=== PATIENT | female | born 1950 | race Caucasian/White ===

== ENCOUNTER → 2017-01-13 | Outpatient (CLI) | payer MEDICARE ==
[~2017-01-13] MED LIST: ALBU0.08 NEB; ALEN1TAB48 PO; AMLO5TAB2 PO; ASPI-110 PO; ASPI81 PO; ATOR1TAB18 PO; CALC500C2 CHEW; CETI-1 PO; DOCU1CAP25 PO; DOCU2.5C PO; GLUC500C5 PO; HYDR-3516 PO; LISI40TA PO; MULTTAB25 PO; TAB-TAB PO; TOPR25TA2 PO; ZOCO80TA PO; [UNRECOGNIZED DRUG - OTHER]
--- NOTE | 2017-01-13 15:45 | RADRPT ---
EXAM DATE/TIME: 01/13/2017 00:00 [facility] COMPARISON: No previous studies available for comparison. OUTSIDE STUDY REVIEWED: INDICATIONS : CT GUIDED BIOPSY R UPPER LOBE FINDINGS: Images demonstrate a 5 mm nodule right upper lobe which is too small for biopsy. This does demonstrate increased FDG activity and is suspicious for malignancy. Considering there is an approxi mately 8 weeks since the PET scan repeat CT scan is recommended to evaluate for increased size. RECOMMENDATION: Lesion is too small for biopsy as visualized. Recommend repeat noncontrast CT of the chest Leonel Juarez MD on January 13, 2017 at 15:07 Board Certified Radiologist. This report was verified electronically.
== END ==
LOC: EDSTATUS 14:21 → HRAD 14:22
PROVIDERS: ATTEND Thoracic Surgery (Cardiothoracic Vascular Surgery)
DX: C34.92 Malignant neoplasm of unspecified part of left bronchus or lung (principal)
CPT/HCPCS: 76140

== ENCOUNTER 2017-01-21 11:34 | Inpatient (IN) | payer MEDICARE ==
[~2017-01-21] VITALS: Ht 160 cm; Wt 48.3 kg
[2017-01-21] MEDS ORDERED: ATOR1TAB18 PO (12:07)
[2017-01-21] MEDS ORDERED: MULTTAB25 PO (12:07)
[2017-01-21] MEDS ORDERED: ASPI-110 PO (12:07)
[2017-01-21] MEDS ORDERED: LISI40TA PO (12:07)
[2017-01-21] MEDS ORDERED: ALEN1TAB48 PO (12:07)
[2017-01-24] VITALS (7 sets, daily range): BP systolic 101–154; BP diastolic 54–94; PULSE 64–92; RESP 16–20; TEMP 97.4–98.3; O2SAT 96–100
[2017-01-24] MEDS ORDERED: METOPROLOL TARTRATE 25 MG TAB PO PRN (06:15)
[2017-01-24] MEDS ORDERED: LACTATED RINGER'S 1000 ML IV PRN (06:15)
[2017-01-24] MEDS ORDERED: CHLORHEXIDINE GLUCONATE 2 % 1 PACK (2 CLOTHS) TOPICAL PRN (06:15)
[2017-01-24] MEDS ORDERED: INSULIN HUMAN REGULAR 1,000 UNITS/10 ML VIAL SQ PRN (06:15)
[2017-01-24] MEDS ORDERED: SODIUM CHLORID 0.9% 500 ML IV PRN (06:15)
[2017-01-24] MEDS ORDERED: POVIDONE IODINE 5% (ANTISEPSIS KIT) 4 APPLICATIONS EACH NARE PRN (06:15)
[2017-01-24] MEDS ORDERED: AMLO5TAB2 PO (06:23)
[2017-01-24] MEDS ORDERED: BUPIVACAINE LIPOSO PF 1.3% INJ 20 ML, DEXAMETHASONE INJ 4 MG in SODIUM CHLORIDE 0.9% IN... P-ARTICULR SCH (08:00)
[2017-01-24] MEDS ORDERED: ACETAMINOPHEN/HYDROcodone 325 MG/5 MG TAB PO PRN (09:15)
[2017-01-24] MEDS ORDERED: ONDANSETRON HCL 4 MG/2 ML VIAL IV PUSH PRN (09:15)
[2017-01-24] MEDS ORDERED: ACETAMINOPHEN 325 MG TAB PO PRN (09:15)
[2017-01-24] MEDS ORDERED: RESP: ALBUTEROL 2.5 MG/3 ML NEB (PRN) NEB (09:15)
[2017-01-24] MEDS ORDERED: Post-op Orders (for Pharmacy) MISC OTHER ONE (09:15)
[2017-01-24] MEDS ORDERED: MAGNESIUM HYDROXIDE SUSP 30 ML CUP PO PRN (09:15)
[2017-01-24] MEDS: ACETAMINOPHEN 1000 MG/100 ML VIAL IV SCH ×3 (10:00→21:51)
[2017-01-24] MEDS: KETOROLAC TROMETHAMINE 30 MG/ML (IVP) VIAL IV PUSH SCH ×3 (10:00→21:51)
--- NOTE | 2017-01-24 10:16 | RADRPT ---
EXAM DATE/TIME: 01/24/2017 09:38 [facility] COMPARISON: No previous studies available for comparison. INDICATIONS : Post thoracotomy. MEDICAL HISTORY : Hypercholesterolemia. Hypertension SURGICAL HISTORY : Cardiac cath, Stent. ENCOUNTER: Initial ACUITY: 1 day PAIN SCORE: Non-responsive. LOCATION: Bilateral chest FINDINGS: There is hyperinflation. Heart size upper limits normal. Aortic calcification is seen. Right-sided ch est tube is present with tip overlying the right lung apex. A pneumothorax is not clearly visualized. The osseous structures are intact. There is increased density in the right paratracheal region which can represent adenopathy or mass. CONCLUSION: No evidence of pneumothorax with chest tube in place. Gerry Ghotra MD on January 24, 2017 at 10:14 Board Certified Radiologist. This report was verified electronically.
[2017-01-24] MEDS: ACETAMINOPHEN/HYDROcodone 325 MG/5 MG TAB PO PRN (13:08)
--- NOTE | 2017-01-24 13:58 | PD.OP ---
cc: Julian Calzada MD; Catrachita Howard MD Operative Report Date of Surgery: Jan 24, 2017 Preoperative Diagnosis: Postoperative Diagnosis: Procedure: 1. Right Video-Assisted Thoracoscopic Surgery (VATS). 2. Resection of Right Upper Lobe Mass 3. Intercostal Nerve Block . Surgeon: Catrachita Howard Manager Oncology(s): Perla Ferro Operation and Findings: PREOPERATIVE DIAGNOSES 1. Right Upper Lobe Lung Mass. 2. Left Lower Lobe Lung Cancer 3. COPD POSTOPERATIVE DIAGNOSES Same SURGICAL PROCEDURE 1. Right Video-Assisted Thoracoscopic Surgery (VATS). 2. Resection of Right Upper Lobe Mass 3. Intercostal Nerve Block SURGEON Catrachita Howard MD COAT EXAMINER Eleni ferro, [facility] ANESTHESIA General double lumen endotracheal. MACHINE SPLITTER BERE Ruiz MD PREPARATION ChloraPrep. COUNTS Needle, sponge, and instrument counts are correct. DRAINS One [address] COMPLICATIONS None. INDICATIONS The patient is a 66 yo lady with left lower lobe lung cancer as well as a right upper lobe mass. The patient is being brought to the operating room for resection of the right upper lobe mass. DESCRIPTION OF PROCEDURE The patient was brought to the operating room and placed supine on the OR table. Following the induction of adequate general double lumen endotracheal anesthesia and placement of appropriate monitoring devices, the patient was placed in the left lateral decubitus position. The right chest and surrounding areas were then prepped and draped in a standard sterile fashion. A 5 mm camera port was introduced into the 7th intercostal space in mid axillary line, and the camera introduced. A second 5 mm port was then placed anteriorly under direct visual guidance and one posteriorly. The apical segment of the right upper lobe was grasped and resected using a LANE stapler. The specimen was bagged and removed through the posterior port. The specimen was opened and the nodule identified, cultured and sent for definitive histological analysis. The middle port was removed and a [address] was placed into the pleural space and exited through the chest wall. This was maintained in place with a nonabsorbable suture. All of the entry sites were injected with Exparel. Following confirmation of the catheter in the proper place, the incisions were closed with [address] was attached to a suction device, and sterile dressing applied. Intercostal nerve block was performed using Ropivacaine/ Morphine solution at the level of the incisions as well as 2 rib spaces above and below. The patient tolerated the procedure well and was extubated and transferred to the recovery room in stable condition. Catrachita Howard MD Jan 24, 2017 13:58
[2017-01-24] MEDS ORDERED: PROPOFOL 200 MG/20 ML AMP IV ONE (15:02)
[2017-01-24] MEDS ORDERED: NEOSTIGMINE 3 MG/3 ML SYR IV ONE (15:03)
[2017-01-24] MEDS ORDERED: ONDANSETRON HCL 4 MG/2 ML VIAL IV PUSH ONE (15:03)
[2017-01-24] MEDS: RESP: ALBUTEROL 2.5 MG/3 ML NEB (SCH) NEB ×2 (15:33→22:17)
[2017-01-24] MEDS: DOCUSATE CALCIUM 240 MG CAP PO SCH (21:51)
[2017-01-24] MEDS: PANTOPRAZOLE SOD 40 MG DELAYED RELEASE TAB PO SCH (21:51)
[2017-01-25] VITALS (23 sets, daily range): BP systolic 101–149; BP diastolic 60–84; PULSE 76–92; RESP 16–20; TEMP 97.8–98.2; O2SAT 96–100
[2017-01-25] MEDS: ACETAMINOPHEN 1000 MG/100 ML VIAL IV SCH (04:00)
[2017-01-25] MEDS: KETOROLAC TROMETHAMINE 30 MG/ML (IVP) VIAL IV PUSH SCH (04:05)
[2017-01-25] MEDS: RESP: ALBUTEROL 2.5 MG/3 ML NEB (SCH) NEB ×4 (04:53→19:37)
--- NOTE | 2017-01-25 05:11 | RADRPT ---
EXAM DATE/TIME: 01/25/2017 04:28 [facility] COMPARISON: CHEST SINGLE AP, January 24, 2017, 9:38. INDICATIONS : Status post thoracotomy. MEDICAL HISTORY : Hypercholesterolemia. Hypertension SURGICAL HISTORY : Cardiac cath, Stent. ENCOUNTER: Subsequent ACUITY: 2 days PAIN SCORE: Non-responsive. LOCATION: Bilateral chest FINDINGS: A single view of the chest demonstrates right-sided chest tube unchanged. No definite pneumothorax. P ostsurgical changes in the right upper lobe with residual scarring. The cardiomediastinal contours ar e unremarkable. Osseous structures are intact. CONCLUSION: 1. Postsurgical changes right upper lobe. 2. Right-sided chest tube without pneumothorax. Aman Cruz MD on January 25, 2017 at 5:05 Board Certified Radiologist. This report was verified electronically.
--- NOTE | 2017-01-25 10:11 | PD.CAR.PN ---
CVT Progress Note CVT: POD #: 1 Subjective/Hospital Course: 66/ female recent diagnosis of left lingular cancer, underwent workup demonstrating poorly differentiated adenocarcinoma of left lung,, she also had a second smaller right upper lobe nodule that was suspicious for an underlying malignancy. PMH: adenocarcinoma of lung, anxiety , chronic bronchitis, COPD, HTN, HLP surgery: 01/24 Right Video-Assisted Thoracoscopic Surgery (VATS), Resection of Right Upper Lobe Mass 01/25 doing well , on room air chest tube to suction / drained 32cc/ 12 hrs CXR noted no PTX pain controlled Objective: GENERAL: SKIN: Warm and dry.postero lateral incision intact and well approximated / HEAD: Normocephalic. EYES: No scleral icterus. No injection or drainage. NECK: Supple, trachea midline. No JVD or lymphadenopathy. CARDIOVASCULAR: Regular rate and rhythm without murmurs, gallops, or rubs. RESPIRATORY: Breath sounds equal bilaterally. No accessory muscle use. chest tube to wall suction/ no air leak GASTROINTESTINAL: Abdomen soft, non-tender, nondistended. MUSCULOSKELETAL: No cyanosis, or edema. BACK: Nontender without obvious deformity. No CVA tenderness. Vital Signs Date Time Temp Pulse Resp B/P Pulse Ox O2 Delivery O2 Flow Rate FiO2 01/25/17 08:00 96 Room Air 01/25/17 07:00 84 01/25/17 07:00 98.0 84 16 140/81 96 01/25/17 04:55 96 Nasal Cannula 2.00 01/25/17 04:00 96 Nasal Cannula 2.00 01/25/17 03:00 97.9 81 18 101/60 96 01/25/17 03:00 81 01/25/17 00:00 97 Nasal Cannula 2.00 01/24/17 23:30 89 Room Air 01/24/17 23:00 98.3 82 18 109/54 97 01/24/17 23:00 90 Room Air 01/24/17 23:00 82 01/24/17 22:30 91 Room Air 01/24/17 22:25 18 01/24/17 22:18 96 21 01/24/17 20:00 97 Room Air 01/24/17 19:00 97.9 72 18 101/54 97 01/24/17 19:00 72 01/24/17 16:00 99 Room Air 01/24/17 15:00 98.2 79 16 104/63 99 01/24/17 15:00 79 01/24/17 12:00 99 Room Air 01/24/17 11:00 97.4 77 16 119/71 99 01/24/17 11:00 64 01/24/17 10:30 64 01/24/17 10:30 97.4 70 16 119/70 100 01/24/17 10:30 100 Nasal Cannula 2.00 01/24/17 10:15 69 16 109/62 99 Nasal Cannula 2 Telemetry: NSR (1) Lung cancer (2) right vats Plan: await path report keep chest tube to wall suction pulm toileting nebs ezpap acapella ambulate CM to eval for HHC at discharge (3) COPD (chronic obstructive pulmonary disease) Plan: nebs (4) Hyperlipemia Plan: resume statin (5) Hypertension Plan: resume home meds Amelia Cedeno Jan 25, 2017 10:11
--- NOTE | 2017-01-25 10:18 | HHI.FF ---
Face to Face Verification Diagnosis: (1) Lung cancer (2) right vats (3) Hypertension (4) Hyperlipemia (5) COPD (chronic obstructive pulmonary disease) Home Health Nursing Order: Signs/symptoms of disease process Wound care and dressing changes Instructions: Incentive spirometry Q1 hr x 10, while awake, also use acapella device hourly whole awake chest wall Precautions: NO pushing or pulling, ( pt must use chest pillow to support chest with all activities and with coughing Daily incision care: ok to shower daily, no tub bath. Wash all incisions with liquid dial soap, clean wash cloth to each site, rinse and pat dry. Observe for any signs of infection, such as drainage which is dark yellow, parker, green or foul smelling. Immediately report to the surgeon any drainage from the chest incision, or legs, and for any abnormal drainage from the chest tube sites. Notify surgeon if any temp >101.5 degrees F. When specialty dressing removed/ or if you do not have one, continue to shower daily as above, then rinse and pat incision dry and paint with betadine daily x 5 days. Allow steri strips to fall off if you have any. Avoid lotions, creams, salves, oils, etc. for the first month F/U appointment: as per [place] instructions: PCP in 2 weeks, CV surgeon 2 weeks, Head Transfer Clerk 3-4 weeks For any questions regarding incisions/ dressing / meds / post op care or above Symptoms, I have seen patient Edna Fink on 01/25/17. My clinical findings support the need for the requested home health care services because: Patient has SOB Deconditioned w/ increased weakness I certify that my clinical findings support that this patient is homebound because: Post-op weakness Amelia Cedeno Jan 25, 2017 10:18
[2017-01-25] MEDS: amLODIPine BESYLATE 5 MG TAB PO SCH (11:43)
[2017-01-25] MEDS: ASPIRIN EC 81 MG TABEC PO SCH (11:43)
[2017-01-25] MEDS: ACETAMINOPHEN/HYDROcodone 325 MG/5 MG TAB PO PRN ×2 (11:43→20:47)
[2017-01-25] MEDS: LISINOPRIL 20 MG TAB PO SCH (20:42)
[2017-01-25] MEDS: PANTOPRAZOLE SOD 40 MG DELAYED RELEASE TAB PO SCH (20:42)
[2017-01-25] MEDS: DOCUSATE CALCIUM 240 MG CAP PO SCH (20:42)
[2017-01-25] MEDS ORDERED: ATORVASTATIN 80 MG TAB PO SCH (21:00)
[2017-01-26] VITALS (15 sets, daily range): BP systolic 100–139; BP diastolic 67–75; PULSE 61–96; RESP 18–20; TEMP 97.4–98.5; O2SAT 97–99
[2017-01-26] MEDS: ACETAMINOPHEN/HYDROcodone 325 MG/5 MG TAB PO PRN ×2 (05:18→10:04)
--- NOTE | 2017-01-26 05:53 | RADRPT ---
EXAM DATE/TIME: 01/26/2017 04:05 [facility] COMPARISON: CHEST SINGLE AP, January 25, 2017, 4:28. INDICATIONS : Shortness of breath. MEDICAL HISTORY : Hypercholesterolemia. Hypertension SURGICAL HISTORY : Cardiac cath, Stent. ENCOUNTER: Subsequent ACUITY: 2 days PAIN SCORE: Non-responsive. LOCATION: Bilateral chest FINDINGS: A single view of the chest demonstrates clear lungs. Postsurgical changes right lung. Right-sided aric st tube noted without pneumothorax. The cardiomediastinal contours are unremarkable. Mediastinum is midline. Osseous structures are intact. CONCLUSION: Right-sided chest tube without pneumothorax. Aman Cruz MD on January 26, 2017 at 5:50 Board Certified Radiologist. This report was verified electronically.
[2017-01-26] MEDS: RESP: ALBUTEROL 2.5 MG/3 ML NEB (SCH) NEB ×2 (06:16→10:32)
[2017-01-26] MEDS: ASPIRIN EC 81 MG TABEC PO SCH (09:53)
[2017-01-26] MEDS: amLODIPine BESYLATE 5 MG TAB PO SCH (09:53)
[2017-01-26] MEDS: LISINOPRIL 20 MG TAB PO SCH (09:53)
[2017-01-26] MEDS ORDERED: SOD PHOSPHATE/SOD BIPHOSPHATE (ADULT) ENEMA 133ML PR ONE (10:15)
[2017-01-26] MEDS ORDERED: BISACODYL 10 MG SUPP RECTAL ONE (10:15)
[2017-01-26] MEDS ORDERED: MAGNESIUM HYDROXIDE SUSP 30 ML CUP PO ONE (10:15)
--- NOTE | 2017-01-26 10:15 | PD.CAR.PN ---
CVT Progress Note Subjective/Hospital Course: 66/ female recent diagnosis of left lingular cancer, underwent workup demonstrating poorly differentiated adenocarcinoma of left lung,, she also had a second smaller right upper lobe nodule that was suspicious for an underlying malignancy. PMH: adenocarcinoma of lung, anxiety , chronic bronchitis, COPD, HTN, HLP surgery: 01/24 Right Video-Assisted Thoracoscopic Surgery (VATS), Resection of Right Upper Lobe Mass 01/25 doing well , on room air chest tube to suction / drained 32cc/ 12 hrs CXR noted no PTX pain controlled 01/26 chest tube removed without difficulty f/u cxr pending eval for dc later today additional GI motility meds given Objective: GENERAL: SKIN: Warm and dry.incisions intact right postero lateral chest wall / chest tube removed HEAD: Normocephalic. EYES: No scleral icterus. No injection or drainage. NECK: Supple, trachea midline. No JVD or lymphadenopathy. CARDIOVASCULAR: Regular rate and rhythm without murmurs, gallops, or rubs. RESPIRATORY: Breath sounds equal bilaterally. No accessory muscle use. GASTROINTESTINAL: Abdomen soft, non-tender, nondistended. MUSCULOSKELETAL: No cyanosis, or edema. BACK: Nontender without obvious deformity. No CVA tenderness. Vital Signs Date Time Temp Pulse Resp B/P Pulse Ox O2 Delivery O2 Flow Rate FiO2 01/26/17 09:02 89 01/26/17 08:54 77 01/26/17 08:54 97 Room Air 01/26/17 07:30 98.1 84 18 100/67 97 01/26/17 07:30 82 01/26/17 06:06 69 01/26/17 05:00 75 01/26/17 04:00 97 Room Air 01/26/17 04:00 72 01/26/17 04:00 98.5 71 20 139/75 99 01/26/17 03:10 74 01/26/17 02:00 74 01/26/17 01:00 74 01/26/17 00:00 74 01/26/17 00:00 98.2 79 20 123/68 99 01/26/17 00:00 95 Nasal Cannula 1.00 01/25/17 23:00 80 01/25/17 22:00 90 01/25/17 21:00 92 01/25/17 20:00 98.2 90 20 149/76 98 01/25/17 20:00 90 01/25/17 20:00 98 Room Air 01/25/17 19:41 98 21 01/25/17 19:00 76 01/25/17 18:00 89 01/25/17 17:00 82 01/25/17 16:30 98.1 85 20 118/65 98 01/25/17 16:30 98 Room Air 01/25/17 16:00 82 01/25/17 15:27 96 21 01/25/17 15:00 78 01/25/17 14:00 79 01/25/17 13:00 82 01/25/17 12:00 97 Room Air 01/25/17 12:00 90 01/25/17 11:52 97.8 87 18 141/84 97 01/25/17 11:00 89 01/25/17 10:26 97 21 (1) Lung cancer (2) right vats Plan: path report :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
[2017-01-26] MEDS ORDERED: DOCU1CAP25 PO (10:33)
--- NOTE | 2017-01-26 12:14 | RADRPT ---
EXAM DATE/TIME: 01/26/2017 11:37 [facility] COMPARISON: CHEST SINGLE AP, January 26, 2017, 4:05. INDICATIONS : Pneumothorax. Chest tube removal. MEDICAL HISTORY : Hypercholesterolemia. Hypertension SURGICAL HISTORY : Cardiac cath, Stent. ENCOUNTER: Subsequent ACUITY: 2 days PAIN SCORE: 0/10 LOCATION: Bilateral chest FINDINGS: Hyperinflation is noted bilaterally. The right-sided chest tube has been removed. Questionable minima l tiny right apical pneumothorax. Right upper lobe bandlike opacity again noted. Heart size normal. CONCLUSION: Chest tube removal with questionable minimal residual apical pneumothorax. Gerry Ghotra MD on January 26, 2017 at 12:11 Board Certified Radiologist. This report was verified electronically.
--- NOTE | 2017-01-26 13:25 | HHI.DS ---
Discharge Summary Admission Date Jan 24, 2017 at 05:40 Discharge Date: Jan 26, 2017 Admitting Diagnosis right lung mass (1) Lung cancer Diagnosis: Principal (2) COPD (chronic obstructive pulmonary disease) Diagnosis: Principal (3) Hyperlipemia Diagnosis: Principal (4) Hypertension Diagnosis: Principal (5) right vats Diagnosis: Secondary Procedures 01/24 1. Right Video-Assisted Thoracoscopic Surgery (VATS). 2. Resection of Right Upper Lobe Mass 3. Intercostal Nerve Block Brief History 66/ female recent diagnosis of left lingular cancer, underwent workup demonstrating poorly differentiated adenocarcinoma of left lung,, she also had a second smaller right upper lobe nodule that was suspicious for an underlying malignancy. also underwent PET scan PMH: adenocarcinoma of lung, anxiety , chronic bronchitis, COPD, HTN, HLP surgery: 01/24 Right Video-Assisted Thoracoscopic Surgery (VATS), Resection of Right Upper Lobe Mass Imaging Last Impressions Chest X-Ray 01/26/17 1130 Signed Impressions: Service Date/Time: Thursday, January 26, 2017 11:37 - CONCLUSION: Chest tube removal with questionable minimal residual apical pneumothorax. Gerry Ghotra MD PE at Discharge GENERAL: SKIN: Warm and dry.incision intact to right lateral chest wall/ chest tube dc without difficulty HEAD: Normocephalic. EYES: No scleral icterus. No injection or drainage. NECK: Supple, trachea midline. No JVD or lymphadenopathy. CARDIOVASCULAR: Regular rate and rhythm without murmurs, gallops, or rubs. RESPIRATORY: Breath sounds equal bilaterally. No accessory muscle use. GASTROINTESTINAL: Abdomen soft, non-tender, nondistended. MUSCULOSKELETAL: No cyanosis, or edema. BACK: Nontender without obvious deformity. No CVA tenderness. Hospital Course 01/25 doing well , on room air chest tube to suction / drained 32cc/ 12 hrs CXR noted no PTX pain controlled 01/26 chest tube removed without difficulty f/u cxr pending eval for dc later today additional GI motility meds given Pt Condition on Discharge: Good Discharge Disposition: Disch w/ Home Health Serv Discharge Instructions DIET: Follow Instructions for: As Tolerated, No Restrictions Activities you can perform: Shower Only-No Bath Activities to avoid: Lifting/Bending, Strenuous Activity, Driving Additional Activity Instructio: no lifting > 8 lbs or gallon of milk Follow up Referrals: Pulmonology Surgical New Medications: Docusate Calcium (Stool Softener) 240 Mg Cap 240 MG PO HS Constipation #30 CAP Continued Medications: Alendronate (Alendronate) 70 Mg Tab 70 MG PO Q7D Osteporosis Treatment #4 Ref 0 TAB Amlodipine (Amlodipine) 5 Mg Tab 5 MG PO DAILY Blood Pressure Management #30 Ref [address] (Aspirin 81) 81 Mg Tabdr 81 MG PO DAILY Ref 0 TAB Atorvastatin (Atorvastatin) 80 Mg Tab 80 MG PO HS Cholesterol Management #30 Ref 0 TAB Lisinopril (Lisinopril) 40 Mg Tab 40 MG PO BID Blood Pressure Management #30 Ref 0 TAB Multiple Vitamins W/ Minerals (Multi For Her 50+) 1 Tab Tab 1 TAB PO DAILY Nutritional Supplement Amelia Cedeno Jan 26, 2017 13:25
== END 2017-01-26 13:57 | disposition home health service (06) | DRG 165 ==
LOC: HSDI 01-24 05:40 → HCVR 01-24 10:29 → HCIN 01-25 08:50 → HCIS 01-25 10:51 → HCIN 01-25 10:57
PROVIDERS: ADMIT Thoracic Surgery (Cardiothoracic Vascular Surgery); ATTEND Thoracic Surgery (Cardiothoracic Vascular Surgery)
PROC: 3E0T3CZ (ICD-10-PCS; 2017-01-24)
PROC: 0BTC4ZZ Resection of Right Upper Lung Lobe, Percutaneous Endoscopic Approach (ICD-10-PCS; principal; 2017-01-24 07:35)
DX: C34.32 Malignant neoplasm of lower lobe, left bronchus or lung (principal); J44.9 Chronic obstructive pulmonary disease, unspecified; I10 Essential (primary) hypertension; E78.5 Hyperlipidemia, unspecified; R94.31 Abnormal electrocardiogram [ECG] [EKG]
CPT/HCPCS: 36415; 71010; 80048; 81001; 85027; 85610; 85730; 86850; 86900; 86901; 87015; 87070; 87102; 87116; 87205; 87206; 88305; 88307; 93005; 94150; 94640; 94664; C9290; J0131; J0690; J1100; J1885; J2405; J2710; J7120; J7613

== ENCOUNTER → 2017-01-21 | Outpatient (CLI) | payer MEDICARE ==
[2017-01-21 13:01] LABS: MEAN CORPUSCULAR HEMOGLOBIN 29.5 PG (27.0-34.0); MEAN CORPUSCULAR HGB CONC 32.8 % (32.0-36.0); PLATELET COUNT 269 TH/MM3 (150-450); RED BLOOD COUNT 4.55 MIL/MM3 (4.00-5.30); RED CELL DISTRIBUTION WIDTH 13.4 % (11.6-17.2); REVIEW FLAG FINAL; WHITE BLOOD COUNT 12.3 TH/MM3 (4.0-11.0)
[2017-01-21 13:09] LABS: APTT (PATIENT) 24.9 SEC (24.3-30.1); INTERNATIONAL NORMALIZED RATIO 0.9 RATIO; PROTHROMBIN TIME - PATIENT 9.9 SEC (9.8-11.6)
[2017-01-21 13:20] LABS: BLOOD, URINE SMALL (NEG); COMMENT (UR) CULT NOT INDICATED; CULTURE IF INDICATED CULT NOT INDICATED; GLUCOSE,URINE NEG (NEG); KETONE, URINE NEG (NEG); NITRITE,URINE NEG (NEG); URINE COLOR YELLOW (YELLW/STRAW)
[2017-01-21 13:23] LABS: BICARBONATE 29.3 MEQ/L (21.0-32.0); POTASSIUM 4.4 MEQ/L (3.5-5.1)
--- NOTE | 2017-01-22 15:27 | EKG ---
Date Performed: 01/21/2017 Time Performed: 12:27:55 PTAGE: 66 years EKG: Sinus rhythm LOW QRS VOLTAGE IN EXTREMITY LEADS Compared to previous tracing, previously noted anterolateral ST c hanges have all improved. Clinical correlation is strongly recommended BORDERLINE ECG NO PREVIOUS TRACING DOCTOR: Vicenta Cardona Interpretating Date/Time 01/22/2017 15:25:37
== END ==
LOC: CPRE 11:30
PROVIDERS: ATTEND Thoracic Surgery (Cardiothoracic Vascular Surgery)
DX: Z01.812 Encounter for preprocedural laboratory examination (principal); C34.92 Malignant neoplasm of unspecified part of left bronchus or lung; R94.31 Abnormal electrocardiogram [ECG] [EKG]
CPT/HCPCS: 36415; 80048; 81001; 85027; 85610; 85730; 93005

== ENCOUNTER 2017-02-21 07:30 | Inpatient (IN) | payer MEDICARE ==
[~2017-02-21] VITALS: Ht 160 cm; Wt 48.5 kg
[~2017-02-21 07:30] MED LIST changes: -ALBU0.08 NEB; -ASPI-110 PO; -ASPI81 PO; -CALC500C2 CHEW; -CETI-1 PO; -DOCU2.5C PO; -GLUC500C5 PO; -HYDR-3516 PO; -TAB-TAB PO; -TOPR25TA2 PO; -ZOCO80TA PO; -[UNRECOGNIZED DRUG - OTHER]
[2017-03-29] MEDS ORDERED: CETI-1 PO (14:25)
[2017-03-29] MEDS ORDERED: ALBU0.08 NEB (14:25)
[2017-04-01] VITALS (17 sets, daily range): BP systolic 107–125; BP diastolic 60–77; PULSE 77–104; RESP 16; TEMP 97.6–98; O2SAT 95–99
[2017-04-01] MEDS ORDERED: POVIDONE IODINE 5% (ANTISEPSIS KIT) 4 APPLICATIONS EACH NARE PRN (06:15)
[2017-04-01] MEDS ORDERED: INSULIN HUMAN REGULAR 1,000 UNITS/10 ML VIAL SQ PRN (06:15)
[2017-04-01] MEDS ORDERED: SODIUM CHLORID 0.9% 500 ML IV PRN (06:15)
[2017-04-01] MEDS ORDERED: METOPROLOL TARTRATE 25 MG TAB PO PRN (06:15)
[2017-04-01] MEDS ORDERED: CHLORHEXIDINE GLUCONATE 2 % 1 PACK (2 CLOTHS) TOPICAL PRN (06:15)
[2017-04-01] MEDS ORDERED: LACTATED RINGER'S 1000 ML IV PRN (06:15)
[2017-04-01] MEDS ORDERED: CALC500C2 CHEW (06:25)
[2017-04-01] MEDS ORDERED: GLUC500C5 PO (06:25)
[2017-04-01] MEDS ORDERED: ACETAMINOPHEN 1000 MG/100 ML VIAL IV ONE (07:21)
[2017-04-01] MEDS ORDERED: DEXAMETHASONE SOD PHOS 4 MG/ML VIAL ONE (07:22)
[2017-04-01] MEDS ORDERED: fentaNYL CITRATE 250 MCG/5 ML AMP ONE (07:22)
[2017-04-01] MEDS ORDERED: MIDAZOLAM HCL 2 MG/2 ML VIAL ONE (07:22)
[2017-04-01] MEDS ORDERED: ceFAZolin 2 GM PREMIX 50 ML ONE (07:24)
[2017-04-01] MEDS ORDERED: BUPIVACAINE LIPOSO PF 1.3% INJ 20 ML, DEXAMETHASONE INJ 4 MG, MORPHINE INJ 10 MG in SOD... P-ARTICULR SCH (07:30)
[2017-04-01] MEDS ORDERED: SODIUM CHLORIDE 0.9% FLUSH 5 ML FLUSH IV FLUSH PRN (12:00)
[2017-04-01] MEDS ORDERED: PROPOFOL 200 MG/20 ML AMP IV ONE (12:00)
[2017-04-01] MEDS ORDERED: NEOSTIGMINE 3 MG/3 ML SYR IV ONE (12:00)
[2017-04-01] MEDS ORDERED: RESP: ALBUTEROL 2.5 MG/3 ML NEB (PRN) NEB (12:00)
[2017-04-01] MEDS ORDERED: ACETAMINOPHEN 1000 MG/100 ML VIAL IV SCH (12:00)
[2017-04-01] MEDS ORDERED: ePHEDrine/NS 25 MG/5 ML SYR IV ONE (12:00)
[2017-04-01] MEDS ORDERED: LACTATED RINGER'S 1000 ML INJ 1,000 ML IV ONE (12:00)
[2017-04-01] MEDS ORDERED: PHENYLEPH/NS 1000 MCG/10 ML SYR IV ONE (12:00)
[2017-04-01] MEDS: KETOROLAC TROMETHAMINE 30 MG/ML (IVP) VIAL IV PUSH SCH ×3 (12:00→22:30)
[2017-04-01] MEDS ORDERED: ONDANSETRON HCL 4 MG/2 ML VIAL IV PUSH ONE (12:00)
[2017-04-01] MEDS ORDERED: NORMOSOL R INJ 1,000 ML IV ONE (12:00)
[2017-04-01] MEDS ORDERED: Post-op Orders (for Pharmacy) MISC OTHER ONE (12:00)
[2017-04-01] MEDS ORDERED: ACETAMINOPHEN/HYDROcodone 325 MG/5 MG TAB PO PRN (12:00)
[2017-04-01] MEDS ORDERED: ONDANSETRON HCL 4 MG/2 ML VIAL IV PUSH PRN (12:00)
[2017-04-01] MEDS ORDERED: ACETAMINOPHEN 325 MG TAB PO PRN (12:00)
[2017-04-01] MEDS ORDERED: DO NOT ADM ANY ANTICOAGULANT DRUGS PRN (12:19)
[2017-04-01] MEDS ORDERED: *morphine SULFATE 8 MG/ML PERIprocedure ONLY ONE (12:39)
--- NOTE | 2017-04-01 12:56 | RADRPT ---
EXAM DATE/TIME: 04/01/2017 12:34 [facility] COMPARISON: CHEST SINGLE AP, January 26, 2017, 11:37. INDICATIONS : Post op thoracotomy. MEDICAL HISTORY : Hypercholesterolemia. Hypertension SURGICAL HISTORY : None. Cardiac cath, Stent. ENCOUNTER: Initial ACUITY: 1 day PAIN SCORE: 0/10 LOCATION: Bilateral chest FINDINGS: A left chest tube is noted in good position. No definite pneumothorax is noted on the left. The hea rt is stable. The pulmonary vascularity pattern is normal. The lungs are clear. CONCLUSION: 1. Left chest tube is in good position without evidence of pneumothorax. Tomas Street MD on April 01, 2017 at 12:49 Board Certified Radiologist. This report was verified electronically.
[2017-04-01] MEDS ORDERED: DOPamine INJ PREMIX 500 ML ONE (13:50)
--- NOTE | 2017-04-01 14:10 | HHI.FF ---
Face to Face Verification Diagnosis: (1) Lung cancer (2) COPD (chronic obstructive pulmonary disease) (3) Hyperlipemia (4) Hypertension (5) right vats Home Health Nursing Order: Wound care and dressing changes Nursing assessment with vital signs Instructions: Incentive spirometry Q1 hr x 10, while awake, also use acapella device hourly whole awake chest wall chest wall Precautions: NO pushing or pulling, ( pt must use chest pillow to support chest with all activities and with coughing Daily incision care: ok to shower daily, no tub bath. Wash all incisions with liquid dial soap, clean wash cloth to each site, rinse and pat dry. Observe for any signs of infection, such as drainage which is dark yellow, parker, green or foul smelling. Immediately report to the surgeon any drainage from the chest incision, or legs, and for any abnormal drainage from the chest tube sites. Notify surgeon if any temp >101.5 degrees F. When specialty dressing removed/ or if you do not have one, continue to shower daily as above, then rinse and pat incision dry and paint with betadine daily x 5 days. Allow steri strips to fall off if you have any. Avoid lotions, creams, salves, oils, etc. for the first month F/U appointment: as per [place] instructions: PCP in 2 weeks, CV surgeon 2 weeks, manager bilingual 3-4 weeks, oncologist 4 weeks For any questions regarding incisions/ dressing / meds / post op care or above Symptoms, Tuesday 8am-5pm Heart & Vascular Surgery Office ( Dr. Howard & Dr. Blevins), After Hours / Nights (5pm -8am) Weekends and Holidays Please call [facility] Cardiac Intermediate Care Unit (CIC) Charge Nurse I have seen patient Edna Fink on 04/01/17. My clinical findings support the need for the requested home health care services because: Deconditioned w/ increased weakness I certify that my clinical findings support that this patient is homebound because: Post-op weakness Amelia Cedeno Apr 01, 2017 14:10
[2017-04-01] MEDS ORDERED: DOPamine 800 MG/D5W PREMIX 500 ML IV SCH (14:15)
--- NOTE | 2017-04-01 14:21 | PD.OP ---
cc: Julian Calzada MD; Catrachita Howard MD; Rayray Correa MD Operative Report Date of Surgery: Apr 01, 2017 Preoperative Diagnosis: Postoperative Diagnosis: Procedure: 1. Robotic Left Upper Lobectomy 2. Mediastinal Lymph Node Dissection. 3. Intercostal Nerve Block . Surgeon: Catrachita Howard Carbon Cleaner(s): Perla Luke Operation and Findings: PREOPERATIVE DIAGNOSIS 1. Left Upper Lobe Adenocarcinoma 2. Right Upper Lobe Squamous Cell Carcinoma 3. Head & Neck Cancer 4. COPD POSTOPERATIVE DIAGNOSIS same PROCEDURES 1. Robotic Left Upper Lobectomy 2. Mediastinal Lymph Node Dissection. 3. Intercostal Nerve Block SURGEON Catrachita Howard MD HAIRSPRING VIBRATOR Eleni Luke CSFA ANESTHESIA General endotracheal. MUSHROOM SPAWN MAKER BERE Suarez MD OPERATIVE TIME Please see record. COMPLICATIONS None. INDICATION FOR PROCEDURE The patient is a 67yo lady with multiple synchronous primary malignancies now with left lung cancer. DESCRIPTION OF PROCEDURE The patient was brought to the operating suite and placed in supine position. Following satisfactory induction of general endotracheal anesthesia, the patient was placed in the right lateral decubitus position. The left chest was then prepped and draped in the usual sterile fashion. Under direct vision, camera was introduced in the 8th ICS and insufflation was begun into the chest . Instrument arm 1and 2 were placed. Lesion was identified. The inferior pulmonary ligament was divided. The pulmonary arterial supply to the upper lobe was identified, dissected free and divided as was the pulmonary venous supply. The bronchus was then dissected free, clamped and the remaining lung was insufflated without any difficulty. Lymph node dissections of level 5, 6 and 7 were explored but adenopathy was identified. Specimen was bagged and removed from the chest. A 28-Maori chest tube was placed. Intercostal nerve block was performed at the level of the incision and 3 rib spaces above and below using Exparel with Decadron solution. Evicel was sprayed along the staple line and no air-leaks were identified. Wounds were closed with 2-0, 3-0, and 4-0 Monocryl. The patient tolerated the procedure well and postoperatively went to recovery in stable condition. Catrachita Howard MD Apr 01, 2017 14:21
[2017-04-01] MEDS ORDERED: ceFAZolin 1 GM PREMIX 50 ML IV SCH (16:00)
[2017-04-01] MEDS: ceFAZolin 1,000 MG/NS 100 ML IV SCH ×2 (16:58)
[2017-04-01] MEDS: RESP: ALBUTEROL 2.5 MG/3 ML NEB (SCH) NEB ×2 (17:01→20:21)
[2017-04-01] MEDS: DOCUSATE CALCIUM 240 MG CAP PO SCH (21:00)
[2017-04-01] MEDS: SODIUM CHLORIDE 0.9% FLUSH 5 ML FLUSH IV FLUSH SCH (21:00)
[2017-04-01] MEDS: ATORVASTATIN 80 MG TAB PO SCH (22:27)
[2017-04-01] MEDS: PANTOPRAZOLE SOD 40 MG DELAYED RELEASE TAB PO SCH (22:27)
[2017-04-02] VITALS (29 sets, daily range): BP systolic 96–143; BP diastolic 63–81; PULSE 72–108; RESP 16; TEMP 97.6–99.1; O2SAT 93–97
[2017-04-02] MEDS: RESP: ALBUTEROL 2.5 MG/3 ML NEB (SCH) NEB ×3 (03:24→21:15)
[2017-04-02] MEDS: ACETAMINOPHEN/HYDROcodone 325 MG/5 MG TAB PO PRN ×4 (04:20→23:00)
[2017-04-02] MEDS: ceFAZolin 1,000 MG/NS 100 ML IV SCH ×4 (04:21→09:04)
[2017-04-02] MEDS ORDERED: CALCIUM CARBONATE 500 MG CHEWABLE TAB CHEW PRN (04:30)
[2017-04-02 05:57] LABS: AUTOMATED NEUTROPHIL # 11.8 TH/MM3 (1.8-7.7); BASOPHIL # 0.1 TH/MM3 (0-0.2); BASOPHIL % 0.5 % (0.0-2.0); EOSINOPHIL % 0.1 % (0.0-4.0); HEMATOCRIT 30.1 % (35.0-46.0); HEMO FLAGS DIFF FINAL; LYMPH % 13.3 % (9.0-44.0); MEAN CELL VOLUME 89.4 FL (80.0-100.0); MEAN CORPUSCULAR HEMOGLOBIN 29.4 PG (27.0-34.0); MEAN CORPUSCULAR HGB CONC 32.9 % (32.0-36.0); MONO % 6.5 % (0.0-8.0); NEUT % 79.6 % (16.0-70.0); PLATELET COUNT 266 TH/MM3 (150-450); RED BLOOD COUNT 3.37 MIL/MM3 (4.00-5.30); RED CELL DISTRIBUTION WIDTH 13.6 % (11.6-17.2); WHITE BLOOD COUNT 14.8 TH/MM3 (4.0-11.0)
[2017-04-02] MEDS: KETOROLAC TROMETHAMINE 30 MG/ML (IVP) VIAL IV PUSH SCH ×2 (06:00→22:49)
[2017-04-02 06:20] LABS: BICARBONATE 27.5 MEQ/L (21.0-32.0); POTASSIUM 3.9 MEQ/L (3.5-5.1)
[2017-04-02] MEDS: SODIUM CHLORIDE 0.9% FLUSH 5 ML FLUSH IV FLUSH SCH ×2 (09:00→21:00)
[2017-04-02] MEDS ORDERED: NON-FORMULARY DRUG (Glucosamine 500 MG) PO SCH (09:00)
[2017-04-02] MEDS: CETIRIZINE HCL 10 MG TAB PO SCH (09:04)
--- NOTE | 2017-04-02 09:39 | PD.CAR.PN ---
CVT Progress Note Subjective/Hospital Course: 67 yo pleasant lady with synchronous lung malignancies 04/01 PROCEDURES 1. Robotic Left Upper Lobectomy 2. Mediastinal Lymph Node Dissection. 3. Intercostal Nerve Block 04/02 Doing well Air-leak with valsalva Maintain CT to water seal Ambulate Objective: Vital Signs Date Time Temp Pulse Resp B/P Pulse Ox O2 Delivery O2 Flow Rate FiO2 04/02/17 09:18 96 04/02/17 08:30 95 04/02/17 08:30 98.3 95 16 122/75 95 04/02/17 05:00 74 04/02/17 04:08 98.2 91 16 117/70 94 04/02/17 04:00 72 04/02/17 03:00 87 04/02/17 02:00 86 04/02/17 01:07 97.6 92 16 119/63 97 04/02/17 01:00 86 04/02/17 00:00 86 04/01/17 23:00 85 04/01/17 22:00 104 04/01/17 21:53 97.6 93 16 117/66 96 04/01/17 21:00 88 04/01/17 20:21 99 04/01/17 20:00 82 04/01/17 19:00 97 04/01/17 19:00 16 04/01/17 18:00 98 04/01/17 17:30 98 16 125/76 96 04/01/17 17:15 93 16 111/65 96 04/01/17 17:04 96 04/01/17 17:00 98 04/01/17 17:00 100 16 110/72 96 04/01/17 17:00 100 04/01/17 16:45 101 16 116/60 95 04/01/17 16:30 101 16 122/77 96 04/01/17 16:15 98.0 100 16 110/72 96 04/01/17 16:00 100 04/01/17 15:30 95 21 105/58 98 Nasal Cannula 2 04/01/17 15:15 100 22 110/66 98 Nasal Cannula 2 04/01/17 15:00 88 17 104/58 98 Nasal Cannula 2 04/01/17 14:45 89 14 102/57 98 Nasal Cannula 2 04/01/17 14:30 93 21 100/55 98 Nasal Cannula 2 04/01/17 14:15 93 21 137/61 98 Nasal Cannula 2 04/01/17 14:00 90 22 82/54 98 Nasal Cannula 2 04/01/17 13:45 75 18 83/54 98 Nasal Cannula 2 04/01/17 13:30 97.5 84 18 86/54 98 Nasal Cannula 2 04/01/17 13:15 83 18 89/51 97 Nasal Cannula 2 04/01/17 13:00 74 13 92/51 96 Nasal Cannula 2 04/01/17 12:45 76 15 98/53 99 Nasal Cannula 2 04/01/17 12:30 79 20 105/52 98 Nasal Cannula 2 04/01/17 12:17 96.8 81 25 107/53 96 Nasal Cannula 2 Labs: Laboratory Tests Test 04/02/17 05:07 White Blood Count 14.8 TH/MM3 (4.0-11.0) Red Blood Count 3.37 MIL/MM3 (4.00-5.30) Hemoglobin 9.9 GM/DL (11.6-15.3) Hematocrit 30.1 % (35.0-46.0) Mean Corpuscular Volume 89.4 FL (80.0-100.0) Mean Corpuscular Hemoglobin 29.4 PG (27.0-34.0) Mean Corpuscular Hemoglobin 32.9 % Concent (32.0-36.0) Red Cell Distribution Width 13.6 % (11.6-17.2) Platelet Count 266 TH/MM3 (150-450) Mean Platelet Volume 7.0 FL (7.0-11.0) Neutrophils (%) (Auto) 79.6 % (16.0-70.0) Lymphocytes (%) (Auto) 13.3 % (9.0-44.0) Monocytes (%) (Auto) 6.5 % (0.0-8.0) Eosinophils (%) (Auto) 0.1 % (0.0-4.0) Basophils (%) (Auto) 0.5 % (0.0-2.0) Neutrophils # (Auto) 11.8 TH/MM3 (1.8-7.7) Lymphocytes # (Auto) 2.0 TH/MM3 (1.0-4.8) Monocytes # (Auto) 1.0 TH/MM3 (0-0.9) Eosinophils # (Auto) 0.0 TH/MM3 (0-0.4) Basophils # (Auto) 0.1 TH/MM3 (0-0.2) CBC Comment DIFF FINAL Differential Comment Sodium Level 140 MEQ/L (136-145) Potassium Level 3.9 MEQ/L (3.5-5.1) Chloride Level 107 MEQ/L (98-107) Carbon Dioxide Level 27.5 MEQ/L (21.0-32.0) Anion Gap 6 MEQ/L (5-15) Blood Urea Nitrogen 10 MG/DL (7-18) Creatinine 0.54 MG/DL (0.50-1.00) Estimat Glomerular Filtration 113 ML/MIN Rate (>89) Random Glucose 117 MG/DL (74-106) Calcium Level 8.2 MG/DL (8.5-10.1) Result Diagram: 04/02/17 0507 04/02/17 0507 Catrachita Howard MD Apr 02, 2017 09:39
[2017-04-02] MEDS: MAGNESIUM HYDROXIDE SUSP 30 ML CUP PO PRN (18:12)
[2017-04-02] MEDS: PANTOPRAZOLE SOD 40 MG DELAYED RELEASE TAB PO SCH (21:02)
[2017-04-02] MEDS: ATORVASTATIN 80 MG TAB PO SCH (21:02)
[2017-04-02] MEDS: DOCUSATE CALCIUM 240 MG CAP PO SCH (21:02)
[2017-04-03] VITALS (25 sets, daily range): BP systolic 111–144; BP diastolic 62–90; PULSE 72–101; RESP 16–20; TEMP 97.8–98.5; O2SAT 93–97
[2017-04-03] MEDS: RESP: ALBUTEROL 2.5 MG/3 ML NEB (SCH) NEB ×4 (03:30→20:33)
[2017-04-03] MEDS: ACETAMINOPHEN/HYDROcodone 325 MG/5 MG TAB PO PRN ×4 (04:06→20:26)
[2017-04-03] MEDS: KETOROLAC TROMETHAMINE 30 MG/ML (IVP) VIAL IV PUSH SCH ×3 (04:38→16:22)
--- NOTE | 2017-04-03 06:42 | RADRPT ---
EXAM DATE/TIME: 04/03/2017 05:58 [facility] COMPARISON: CHEST SINGLE AP, April 01, 2017, 12:34. INDICATIONS : Shortness of breath, possible pulmonary disease. MEDICAL HISTORY : Hypercholesterolemia. Hypertension SURGICAL HISTORY : Lobectomy. ENCOUNTER: Subsequent ACUITY: 3 days PAIN SCORE: 6/10 LOCATION: Left chest FINDINGS: Single AP view of the chest. Left-sided chest tube remains in place. No evidence of pneumothorax. The lungs are clear. Cardiomediastinal silhouette within normal limits. No evidence of pleural effusion or pneumothorax. CONCLUSION: Left-sided chest tube in place. No evidence of pneumothorax. Paulino Lang MD on April 03, 2017 at 6:37 Board Certified Radiologist. This report was verified electronically.
[2017-04-03] MEDS: SODIUM CHLORIDE 0.9% FLUSH 5 ML FLUSH IV FLUSH SCH ×2 (09:00→20:28)
[2017-04-03] MEDS: CETIRIZINE HCL 10 MG TAB PO SCH (09:09)
[2017-04-03] MEDS: MAGNESIUM HYDROXIDE SUSP 30 ML CUP PO PRN (09:16)
--- NOTE | 2017-04-03 09:40 | PD.CAR.PN ---
CVT Progress Note Subjective/Hospital Course: 67 yo pleasant lady with synchronous lung malignancies 04/01 PROCEDURES 1. Robotic Left Upper Lobectomy 2. Mediastinal Lymph Node Dissection. 3. Intercostal Nerve Block 04/02 Doing well Air-leak with valsalva Maintain CT to water seal Ambulate 04/03 Doing great No discernible air-leak Keep CT re-evaluate in am for removal Pathology pending Objective: Vital Signs Date Time Temp Pulse Resp B/P Pulse Ox O2 Delivery O2 Flow Rate FiO2 04/03/17 08:00 98.3 85 20 129/90 97 04/03/17 06:00 73 04/03/17 05:00 86 04/03/17 04:59 98.0 98 16 111/63 93 04/03/17 04:00 92 04/03/17 03:00 90 04/03/17 02:00 80 04/03/17 01:00 86 04/03/17 00:00 90 04/02/17 23:20 98.6 101 16 143/81 93 04/02/17 23:00 101 04/02/17 22:00 108 04/02/17 21:15 97 21 04/02/17 21:00 94 04/02/17 20:45 99.1 101 16 139/70 93 04/02/17 20:00 104 04/02/17 19:00 92 04/02/17 18:00 88 04/02/17 17:00 88 04/02/17 16:00 86 04/02/17 16:00 16 04/02/17 15:00 98.3 83 16 122/74 97 04/02/17 14:00 79 04/02/17 13:00 85 04/02/17 12:00 87 04/02/17 11:00 98.4 89 16 96/65 97 04/02/17 10:00 82 Result Diagram: 04/02/17 0507 04/02/17 0507 Catrachita Howard MD Apr 03, 2017 09:40
[2017-04-03] MEDS: ATORVASTATIN 80 MG TAB PO SCH (20:24)
[2017-04-03] MEDS: DOCUSATE CALCIUM 240 MG CAP PO SCH (20:26)
[2017-04-03] MEDS: PANTOPRAZOLE SOD 40 MG DELAYED RELEASE TAB PO SCH (20:28)
[2017-04-04] VITALS (27 sets, daily range): BP systolic 123–165; BP diastolic 68–89; PULSE 74–99; RESP 16–18; TEMP 97.2–98.8; O2SAT 95–97
[2017-04-04] MEDS: ACETAMINOPHEN/HYDROcodone 325 MG/5 MG TAB PO PRN ×7 (00:06→22:50)
[2017-04-04] MEDS: RESP: ALBUTEROL 2.5 MG/3 ML NEB (SCH) NEB ×4 (03:26→21:26)
[2017-04-04] MEDS: CETIRIZINE HCL 10 MG TAB PO SCH (08:40)
[2017-04-04] MEDS: SODIUM CHLORIDE 0.9% FLUSH 5 ML FLUSH IV FLUSH SCH ×2 (08:41→21:00)
--- NOTE | 2017-04-04 13:38 | PD.CAR.PN ---
CVT Progress Note Subjective/Hospital Course: 67 yo pleasant lady with synchronous lung malignancies 04/01 PROCEDURES 1. Robotic Left Upper Lobectomy 2. Mediastinal Lymph Node Dissection. 3. Intercostal Nerve Block 04/02 Doing well Air-leak with valsalva Maintain CT to water seal Ambulate 04/03 Doing great No discernible air-leak Keep CT re-evaluate in am for removal Pathology pending 04/04 small intermittent air leak minimal drainage continue pain control pulm toileting Objective: Vital Signs Date Time Temp Pulse Resp B/P Pulse Ox O2 Delivery O2 Flow Rate FiO2 04/04/17 12:18 16 04/04/17 12:00 98.7 84 16 123/68 95 04/04/17 12:00 89 04/04/17 11:00 92 04/04/17 10:00 82 04/04/17 09:00 88 04/04/17 08:00 98.8 89 16 144/88 96 04/04/17 08:00 74 04/04/17 07:00 88 04/04/17 06:00 98 04/04/17 05:12 98.4 90 16 140/82 95 04/04/17 05:00 84 04/04/17 04:00 76 04/04/17 03:00 74 04/04/17 02:00 76 04/04/17 01:00 78 04/04/17 00:11 98.2 84 16 128/69 95 04/04/17 00:00 84 04/03/17 23:00 79 04/03/17 22:00 82 04/03/17 21:00 94 04/03/17 20:00 84 04/03/17 20:00 98.5 89 16 125/72 96 04/03/17 19:00 80 04/03/17 18:00 78 04/03/17 17:29 20 04/03/17 17:00 82 04/03/17 16:00 81 04/03/17 15:00 97.8 87 20 144/81 96 04/03/17 15:00 79 04/03/17 14:00 101 Result Diagram: 04/02/17 0507 04/02/17 0507 Telemetry: NSR (1) Hyperlipemia (2) Hypertension Plan: home meds (3) right vats (4) Lung cancer Plan: await path (5) COPD (chronic obstructive pulmonary disease) Plan: kyra moss Jacqueline R. ARNP Apr 04, 2017 13:38
[2017-04-04] MEDS: ATORVASTATIN 80 MG TAB PO SCH (19:46)
[2017-04-04] MEDS: PANTOPRAZOLE SOD 40 MG DELAYED RELEASE TAB PO SCH (19:46)
[2017-04-04] MEDS: DOCUSATE CALCIUM 240 MG CAP PO SCH (19:46)
[2017-04-04] MEDS: KETOROLAC TROMETHAMINE 30 MG/ML (IVP) VIAL IV PUSH PRN (21:31)
[2017-04-04] MEDS: LISINOPRIL 20 MG TAB PO SCH (21:32)
[2017-04-05] VITALS (21 sets, daily range): BP systolic 124–152; BP diastolic 71–85; PULSE 72–100; RESP 14–20; TEMP 97.2–99.5; O2SAT 93–97
[2017-04-05] MEDS: RESP: ALBUTEROL 2.5 MG/3 ML NEB (SCH) NEB ×3 (03:44→15:47)
[2017-04-05] MEDS: KETOROLAC TROMETHAMINE 30 MG/ML (IVP) VIAL IV PUSH PRN (04:36)
--- NOTE | 2017-04-05 04:50 | RADRPT ---
EXAM DATE/TIME: 04/05/2017 03:31 [facility] COMPARISON: CHEST SINGLE AP, April 03, 2017, 5:58. INDICATIONS : Shortness of breath. MEDICAL HISTORY : Hypercholesterolemia. Hypertension. SURGICAL HISTORY : Lobectomy. ENCOUNTER: Subsequent ACUITY: 1 week PAIN SCORE: 0/10 LOCATION: Bilateral chest FINDINGS: No infiltrate, effusion or pneumothorax demonstrated. Left chest tube remains in place. Mild left vol ume loss again noted, unchanged. Heart size stable, within normal limits. Tortuous and atherosclerotic aorta again noted. CONCLUSION: No significant change. Glenroy Levy MD on April 05, 2017 at 4:47 Board Certified Radiologist. This report was verified electronically.
[2017-04-05] MEDS: ACETAMINOPHEN/HYDROcodone 325 MG/5 MG TAB PO PRN ×4 (07:08→23:01)
[2017-04-05] MEDS: SODIUM CHLORIDE 0.9% FLUSH 5 ML FLUSH IV FLUSH SCH ×2 (09:00→21:00)
[2017-04-05] MEDS: amLODIPine BESYLATE 5 MG TAB PO SCH (09:23)
[2017-04-05] MEDS: LISINOPRIL 20 MG TAB PO SCH ×2 (09:24→20:58)
[2017-04-05] MEDS: CETIRIZINE HCL 10 MG TAB PO SCH (09:24)
--- NOTE | 2017-04-05 13:12 | RADRPT ---
EXAM DATE/TIME: 04/05/2017 12:02 [facility] COMPARISON: CHEST SINGLE AP, April 05, 2017, 3:31. INDICATIONS : Pneumothorax. MEDICAL HISTORY : Chronic obstructive pulmonary disease. Osteoporosis. Hypertension. Heart valve disease. Left parotid gland mass. Left cervical lymphadenopathy. Squamous cell carcinoma. Left upper lobe lung nodule, saturnino ocarcinoma. Coronary artery disease. SURGICAL HISTORY : Coronary artery stent. Hysterectomy. Cataract removal. Ovarian cyst removal. Biopsy of left upper lob e nodule. VATs procedure with wedge resection. Colonoscopy. ENCOUNTER: Subsequent ACUITY: 3 days PAIN SCORE: 3/10 LOCATION: Bilateral chest FINDINGS: A single view of the chest demonstrates postsurgical changes right upper lung. Left-sided chest tube in position, unchanged. Lungs are clear. No consolidation or pneumothorax. Mild volume loss on the le ft. Osseous structures are intact. CONCLUSION: 1. Post surgical changes right upper lung. 2. Left-sided chest tube without pneumothorax. Aman Cruz MD on April 05, 2017 at 13:06 Board Certified Radiologist. This report was verified electronically.
[2017-04-05] MEDS ORDERED: HYDR-3516 PO (15:46)
[2017-04-05] MEDS ORDERED: DOCU2.5C PO (15:46)
--- NOTE | 2017-04-05 16:02 | PD.CAR.PN ---
CVT Progress Note Subjective/Hospital Course: 67 yo pleasant lady with synchronous lung malignancies 04/01 PROCEDURES 1. Robotic Left Upper Lobectomy 2. Mediastinal Lymph Node Dissection. 3. Intercostal Nerve Block 04/02 Doing well Air-leak with valsalva Maintain CT to water seal Ambulate 04/03 Doing great No discernible air-leak Keep CT re-evaluate in am for removal Pathology pending 04/04 small intermittent air leak minimal drainage continue pain control pulm toileting 04/05 left chest tube removed without difficulty on room air , recheck cxr in am eval for dc in am Objective: GENERAL: SKIN: Warm and dry.incisions intact left chest area HEAD: Normocephalic. EYES: No scleral icterus. No injection or drainage. NECK: Supple, trachea midline. No JVD or lymphadenopathy. CARDIOVASCULAR: Regular rate and rhythm without murmurs, gallops, or rubs. RESPIRATORY: Breath sounds equal bilaterally. No accessory muscle use. GASTROINTESTINAL: Abdomen soft, non-tender, nondistended. MUSCULOSKELETAL: No cyanosis, or edema. BACK: Nontender without obvious deformity. No CVA tenderness. Vital Signs Date Time Temp Pulse Resp B/P Pulse Ox O2 Delivery O2 Flow Rate FiO2 04/05/17 15:33 18 04/05/17 15:00 95 04/05/17 15:00 98.4 83 20 132/73 94 04/05/17 14:00 82 04/05/17 13:00 88 04/05/17 12:00 100 04/05/17 11:00 97.8 92 20 152/76 97 04/05/17 11:00 86 04/05/17 10:00 84 04/05/17 09:39 95 21 04/05/17 09:00 90 04/05/17 08:00 87 04/05/17 08:00 97.9 87 20 124/71 97 04/05/17 07:00 95 04/05/17 04:46 98.0 94 14 132/72 93 04/05/17 04:00 93 04/05/17 03:00 72 04/05/17 02:00 82 04/05/17 01:00 76 04/05/17 00:00 97.2 92 16 126/74 93 04/05/17 00:00 90 04/04/17 23:00 99 04/04/17 22:00 82 04/04/17 21:00 84 04/04/17 20:00 97.2 94 18 165/89 97 04/04/17 20:00 92 04/04/17 19:00 90 04/04/17 18:00 94 04/04/17 17:00 80 04/04/17 16:00 85 04/04/17 16:00 98.3 90 16 150/82 95 Result Diagram: 04/02/17 0507 04/02/17 0507 Cardiovascular: NSR (1) Hyperlipemia (2) Hypertension Plan: home meds (3) right vats (4) Lung cancer Plan: await path adenocarcinoma pT1a pNO no bronchial margin involved no lymph node involved (5) COPD (chronic obstructive pulmonary disease) Plan: kyra moss Jacqueline R. ARNP Apr 05, 2017 16:00
[2017-04-05] MEDS: ATORVASTATIN 80 MG TAB PO SCH (20:57)
[2017-04-05] MEDS: PANTOPRAZOLE SOD 40 MG DELAYED RELEASE TAB PO SCH (20:58)
[2017-04-05] MEDS: DOCUSATE CALCIUM 240 MG CAP PO SCH (20:58)
[2017-04-06] VITALS (7 sets, daily range): BP systolic 120–134; BP diastolic 69–77; PULSE 83–114; RESP 18–20; TEMP 98.1–98.7; O2SAT 95–96
--- NOTE | 2017-04-06 05:48 | RADRPT ---
EXAM DATE/TIME: 04/06/2017 04:49 [facility] COMPARISON: No previous studies available for comparison. INDICATIONS : Short of breath. MEDICAL HISTORY : Chronic obstructive pulmonary disease. Osteoporosis. Hypertension. SURGICAL HISTORY : Lobectomy. Coronary artery stent. ENCOUNTER: Subsequent ACUITY: 1 week PAIN SCORE: 0/10 LOCATION: Bilateral chest FINDINGS: Left chest tube has been removed. No pneumothorax seen. Mild patchy infiltrate and volume loss again seen on the left. Streaky infiltrate of the right upper lobe unchanged. Heart size stable, normal. CONCLUSION: Left chest tube removed. No pneumothorax seen. Otherwise no significant change, as above. Glenroy Levy MD on April 06, 2017 at 5:46 Board Certified Radiologist. This report was verified electronically.
[2017-04-06] MEDS: SODIUM CHLORIDE 0.9% FLUSH 5 ML FLUSH IV FLUSH SCH (09:00)
[2017-04-06] MEDS: ACETAMINOPHEN/HYDROcodone 325 MG/5 MG TAB PO PRN (10:15)
[2017-04-06] MEDS: CETIRIZINE HCL 10 MG TAB PO SCH (10:16)
[2017-04-06] MEDS: amLODIPine BESYLATE 5 MG TAB PO SCH (10:16)
[2017-04-06] MEDS: LISINOPRIL 20 MG TAB PO SCH (10:16)
--- NOTE | 2017-04-06 10:30 | HHI.DS ---
Discharge Summary Admission Date Apr 01, 2017 at 05:38 Discharge Date: Apr 06, 2017 Admitting Diagnosis lung mass (1) COPD (chronic obstructive pulmonary disease) Diagnosis: Principal (2) Lung cancer Diagnosis: Principal (3) Hypertension Diagnosis: Principal (4) right vats Diagnosis: Secondary Procedures 1. Robotic Left Upper Lobectomy 04/01 2. Mediastinal Lymph Node Dissection. 3. Intercostal Nerve Block Brief History 67 female hx of recent diagnosis of left lingular cancer, underwent workup demonstrating poorly differentiated adenocarcinoma of left lung,, she also had a second smaller right upper lobe nodule that was suspicious for an underlying malignancy. also underwent PET scan/ Right vats with resection of RUL lung cancer 410/17 Left Upper Lobe Adenocarcinoma . Right Upper Lobe Squamous Cell Carcinoma Head & Neck Cancer PMH: adenocarcinoma of lung, anxiety , chronic bronchitis, COPD, HTN, HLP CBC/BMP: 04/02/17 0507 04/02/17 0507 Significant Findings path final diagnosis benign antracotic lymph node pT1a pNO histologic type adenocarcinoma Imaging Last Impressions Chest X-Ray 04/06/17 0600 Signed Impressions: Service Date/Time: Tuesday, April 06, 2017 04:49 - CONCLUSION: Left chest tube removed. No pneumothorax seen. Otherwise no significant change, as above. Glenroy Levy MD PE at Discharge GENERAL: SKIN: Warm and dry. incisions intact to left posterior chest wall HEAD: Normocephalic. EYES: No scleral icterus. No injection or drainage. NECK: Supple, trachea midline. No JVD or lymphadenopathy. CARDIOVASCULAR: Regular rate and rhythm without murmurs, gallops, or rubs. RESPIRATORY: Breath sounds equal bilaterally. No accessory muscle use. GASTROINTESTINAL: Abdomen soft, non-tender, nondistended. MUSCULOSKELETAL: No cyanosis, or edema. BACK: Nontender without obvious deformity. No CVA tenderness. Hospital Course 04/01 PROCEDURES 1. Robotic Left Upper Lobectomy 2. Mediastinal Lymph Node Dissection. 3. Intercostal Nerve Block 04/02 Doing well Air-leak with valsalva Maintain CT to water seal Ambulate 04/03 Doing great No discernible air-leak Keep CT re-evaluate in am for removal Pathology pending 04/04 small intermittent air leak minimal drainage continue pain control pulm toileting 04/05 left chest tube removed without difficulty on room air , recheck cxr in am eval for dc in am 04/06 cxr no evidence of PTX, stable for dc F/U with oncology and pulmonology discharge instructions given to pt Pt Condition on Discharge: Good Discharge Disposition: Disch w/ Home Health Serv Discharge Instructions DIET: Follow Instructions for: As Tolerated, No Restrictions Activities you can perform: Full Weight Bearing, Shower Only-No Bath Activities to avoid: Driving Additional Activity Instructio: no liftinjg > 8 lbs or gallon of milk Follow up Referrals: Oncology - 4 Weeks with Rayray Correa MD PCP Follow-up Pulmonology with Julian Calzada MD Surgical with Catrachita Howard MD New Medications: Docusate Calcium (Sm Stool Softener) 240 Mg Cap 240 MG PO HS Constipation #30 Ref 0 CAP Hydrocodone-Acetaminophen (Hydrocodone-Acetaminophen) 5-325 mg Tab 1 TAB PO Q4HR PRN PAIN SCALE 3 TO 5 #40 Ref 0 TAB Continued Medications: Albuterol Neb (Albuterol Neb) 2.5 Mg/3 Ml Neb 2.5 MG NEB TID NEB PRN SHORTNESS OF BREATH #60 Ref 0 NEBULE Alendronate (Alendronate) 70 Mg Tab 70 MG PO Q7D Osteporosis Treatment #4 Ref 0 TAB Amlodipine (Amlodipine) 5 Mg Tab 5 MG PO DAILY Blood Pressure Management #30 Ref 0 TAB Atorvastatin (Atorvastatin) 80 Mg Tab 80 MG PO HS Cholesterol Management #30 Ref 0 TAB Calcium Carbonate-Cholecalciferol (Calcium) 1,250-100 Mg-Unit Chew 1 TAB CHEW DAILY TAB Cetirizine HCl (Zyrtec) 10 Mg Tablet 1 TAB PO DAILY Glucosamine (Glucosamine) 500 Mg Cap 500 MG PO DAILY Herbal Supplements Ref 0 CAP Lisinopril (Lisinopril) 40 Mg Tab 40 MG PO BID Blood Pressure Management #30 Ref 0 TAB Multiple Vitamins W/ Minerals (Multi For Her 50+) 1 Tab Tab 1 TAB PO DAILY Nutritional Supplement Amelia Cedeno Apr 06, 2017 10:30
== END 2017-04-06 11:53 | disposition home health service (06) | DRG 165 ==
LOC: HSDI 04-01 05:38 → HCIN 04-01 15:45
PROVIDERS: ADMIT Thoracic Surgery (Cardiothoracic Vascular Surgery); ATTEND Thoracic Surgery (Cardiothoracic Vascular Surgery)
PROC: 07B74ZX Excision of Thorax Lymphatic, Percutaneous Endoscopic Approach, Diagnostic (ICD-10-PCS; 2017-04-01)
PROC: 3E0T3BZ Introduction of Anesthetic Agent into Peripheral Nerves and Plexi, Percutaneous Approach (ICD-10-PCS; 2017-04-01)
PROC: 8E0W4CZ Robotic Assisted Procedure of Trunk Region, Percutaneous Endoscopic Approach (ICD-10-PCS; 2017-04-01)
PROC: 0BTG4ZZ Resection of Left Upper Lung Lobe, Percutaneous Endoscopic Approach (ICD-10-PCS; principal; 2017-04-01 07:28)
DX: C34.12 Malignant neoplasm of upper lobe, left bronchus or lung (principal); J44.9 Chronic obstructive pulmonary disease, unspecified; Z85.118 Personal history of other malignant neoplasm of bronchus and lung; I10 Essential (primary) hypertension; F17.210 Nicotine dependence, cigarettes, uncomplicated; E78.5 Hyperlipidemia, unspecified
CPT/HCPCS: 36415; 36430; 71010; 76937; 80048; 81001; 85025; 85027; 85610; 85730; 86850; 86900; 86901; 86920; 88305; 88307; 88309; 94150; 94640; 94664; C9290; J0131; J0690; J1100; J1265; J1885; J2250; J2270; J2370; J2405; J2710; J3010; J7120; J7613; P9016

== ENCOUNTER 2017-02-22 12:48 | Day surgery (SDC) | payer MEDICARE ==
[~2017-02-22 12:48] MED LIST changes: +ASPI-110 PO
[2017-02-22 13:56] VITALS: BP 137/74; PULSE 88; RESP 14; TEMP 97.7; O2SAT 98
[2017-02-22 14:55] VITALS: BP 138/81; PULSE 78; RESP 16; TEMP 98; O2SAT 99
[2017-02-22 15:10] VITALS: BP 145/85; PULSE 82; RESP 16; O2SAT 99
[2017-02-22] MEDS ORDERED: LIDOCAINE HCL 1% PF 30 ML VIAL ONE (15:49)
--- NOTE | 2017-02-22 16:43 | RADRPT ---
EXAM DATE/TIME: 02/22/2017 13:17 [facility] COMPARISON: No previous studies available for comparison. EXTERNAL COMPARISON: [facility], PET/CT - TUMOR METABOLISM, Oct 29 2016 INDICATIONS : Palpable left neck nodule x 2. MEDICAL HISTORY : Chronic obstructive pulmonary disease. Osteoporosis. Hypertension. Heart valve disease. Left parotid gland mass. Left cervical lymphadenopathy. Squamous cell carcinoma. Left upper lobe lung nodule, saturnino ocarcinoma. Coronary artery disease. SURGICAL HISTORY : Coronary artery stent. Hysterectomy. Cataract removal. Ovarian cyst removal. Biopsy of left upper lo be nodule. VATs procedure with wedge resection. Colonoscopy. ENCOUNTER: Initial ACUITY: 4 - 6 months PAIN SCORE: 0/10 LOCATION: Left neck. ORGAN: Left lymph node SPECIMENS: Three core specimen(s) submitted for pathologic evaluation. DEVICE: 18 gauge Temno needle Post procedure scanning reveals no hematoma or other complication. The possibility does exist that the tissue obtained will be non-diagnostic. If the sample is non-sue gnostic a repeat biopsy or surgical biopsy may need to be performed. TECHNIQUE: 1. Ultrasound guidance for needle biopsy x 2. 2. Needle biopsy x 2. The risks, benefits, and alternatives to ultrasound guided needle biopsy were explained to the patien t in detail including the risk of bleeding and infection. Written and verbal informed consent was ob tained. With the patient on the ultrasound table, images were obtained. Overlying skin was prepped and drape d in the usual sterile fashion and Lidocaine was utilized as a local anesthetic. A needle was advanced into the identified target and the number of specimens as above obtained and fuentes bmitted for pathologic evaluation. The patient tolerated the procedure well and left the ultrasound suite in stable condition. CONCLUSION: Uncomplicated ultrasound guided needle biopsy of the 2 enlarged lymph nodes adjacent to the mandible of the left neck. Aman Cruz MD on February 22, 2017 at 16:40 Board Certified Radiologist. This report was verified electronically.
== END 2017-02-22 15:15 | disposition home or self-care (01) ==
LOC: HRAD 12:48 → HRIP 12:48 → HRAD 15:15
PROVIDERS: ATTEND Internal Medicine Hematology & Oncology
DX: D11.9 Benign neoplasm of major salivary gland, unspecified (principal); R22.1 Localized swelling, mass and lump, neck; I10 Essential (primary) hypertension; I25.10 Atherosclerotic heart disease of native coronary artery without angina pectoris; J44.9 Chronic obstructive pulmonary disease, unspecified; M81.0 Age-related osteoporosis without current pathological fracture; Z95.5 Presence of coronary angioplasty implant and graft; Z85.118 Personal history of other malignant neoplasm of bronchus and lung
CPT/HCPCS: 38505; 76942; 88305

== ENCOUNTER → 2017-03-29 | Outpatient (CLI) | payer MEDICARE ==
[~2017-03-29] MED LIST changes: +ALBU0.08 NEB; +CALC500C2 CHEW; +CETI-1 PO; +DOCU2.5C PO; +GLUC500C5 PO; +HYDR-3516 PO
[2017-03-29 11:53] LABS: HEMATOCRIT 36.3 % (35.0-46.0); MEAN CELL VOLUME 88.1 FL (80.0-100.0); MEAN CORPUSCULAR HEMOGLOBIN 30.3 PG (27.0-34.0); MEAN CORPUSCULAR HGB CONC 34.4 % (32.0-36.0); PLATELET COUNT 335 TH/MM3 (150-450); RED BLOOD COUNT 4.12 MIL/MM3 (4.00-5.30); RED CELL DISTRIBUTION WIDTH 13.9 % (11.6-17.2); REVIEW FLAG FINAL; WHITE BLOOD COUNT 9.7 TH/MM3 (4.0-11.0)
[2017-03-29 12:01] LABS: APTT (PATIENT) 24.5 SEC (24.3-30.1); INTERNATIONAL NORMALIZED RATIO 0.9 RATIO; PROTHROMBIN TIME - PATIENT 10.1 SEC (9.8-11.6)
[2017-03-29 12:04] LABS: BLOOD, URINE SMALL (NEG); COMMENT (UR) CULT NOT INDICATED; CULTURE IF INDICATED CULT NOT INDICATED; GLUCOSE,URINE NEG (NEG); KETONE, URINE NEG (NEG); NITRITE,URINE NEG (NEG); SQUAMOUS EPITHELIAL CELL URINE <1 /hpf (0-5); URINE COLOR YELLOW (YELLW/STRAW)
[2017-03-29 12:21] LABS: BICARBONATE 26.1 MEQ/L (21.0-32.0); POTASSIUM 4.1 MEQ/L (3.5-5.1)
== END ==
LOC: CPRE 10:40
PROVIDERS: ATTEND Thoracic Surgery (Cardiothoracic Vascular Surgery)
DX: Z01.812 Encounter for preprocedural laboratory examination (principal); C34.92 Malignant neoplasm of unspecified part of left bronchus or lung
CPT/HCPCS: 36415; 80048; 81001; 85027; 85610; 85730

== ENCOUNTER 2018-01-10 23:33 | Observation (INO) | payer MEDICARE ==
[~2018-01-10 23:33] MED LIST changes: -ASPI-110 PO; -ATOR1TAB18 PO; +ATOR80TA45 PO; -DOCU1CAP25 PO; +DOCU1CAP26 PO; -DOCU2.5C PO
[2018-01-10 23:43] VITALS: BP 154/69; PULSE 82; RESP 16; TEMP 98.1
[2018-01-10] MEDS ORDERED: SODIUM CHLORIDE 0.9% FLUSH 10 ML FLUSH IV FLUSH PRN (23:45)
[2018-01-10] MEDS ORDERED: ONDANSETRON HCL 4 MG/2 ML VIAL ONE (23:55)
[2018-01-11] VITALS (12 sets, daily range): BP systolic 97–165; BP diastolic 50–81; PULSE 79–105; RESP 16–17; TEMP 98.1–98.2; O2SAT 92–98
[2018-01-11] MEDS ORDERED: ONDANSETRON HCL 4 MG/2 ML VIAL IV PUSH ONE
--- NOTE | 2018-01-11 00:21 | RADRPT ---
EXAM DATE/TIME: 01/11/2018 00:02 [facility] COMPARISON: No previous studies available for comparison. INDICATIONS : Right lower quadrant abdominal pain. MEDICAL HISTORY : Chronic obstructive pulmonary disease. Osteoporosis. Hypertension. Heart valve disease, Left parotid gland mass. Left cervical lymphadenopathy. Squamous cellcarcinoma. Left upper lobe lung nodule, Adeno carcinoma. Coronary artery disease SURGICAL HISTORY : Coronary artery stent. Hysterectomy. Cataract removal. Ovarian cyst removal,Biopsy of left upper lobe nodule. VATs procedure with wedge resection. Colonoscopy ENCOUNTER: Initial ACUITY: 1 day PAIN SCORE: 8/10 LOCATION: Right lower quadrant abdomen FINDINGS: Supine view of the abdomen was performed. Mild gaseous distention of bowel loops in the right abdomen but no obstruction. Round calcification the left of L4 vertebral body.. No abnormal masses, calcifi cations, or organomegaly is seen. The osseous structures are unremarkable. CONCLUSION: Mild gaseous distention of bowel loops in right abdomen without obstruction. Round benign-appearing c alcification to the left of L4 vertebral body. Aman Cruz MD on January 11, 2018 at 0:18 Board Certified Radiologist. This report was verified electronically.
[2018-01-11 00:48] LABS: AMORPHOUS SEDIMENT, URINE RARE; BILIRUBIN, URINE NEG (NEG); BLOOD, URINE SMALL (NEG); GLUCOSE,URINE NEG (NEG); KETONE, URINE 10 mg/dL (NEG); MUCUS URINE FEW /lpf (OCC); NITRITE,URINE NEG (NEG); PH, URINE 6.5 (5.0-8.5); SQUAMOUS EPITHELIAL CELL URINE 3 /hpf (0-5); URINE COLOR YELLOW (YELLW/STRAW); URINE LEUKOCYTE ESTERASE TRACE (NEG)
[2018-01-11 00:51] LABS: ALBUMIN 3.3 GM/DL (3.4-5.0); AST (GOT) 34 U/L (15-37); BASOPHIL # 0.1 TH/MM3 (0-0.2); BASOPHIL % 0.9 % (0.0-2.0); BICARBONATE 24.4 MEQ/L (21.0-32.0); BLOOD UREA NITROGEN 10 MG/DL (7-18); CALCIUM 8.2 MG/DL (8.5-10.1); CHLORIDE 108 MEQ/L (98-107); CREATININE 0.74 MG/DL (0.50-1.00); EOSINOPHIL # 0.2 TH/MM3 (0-0.4); EOSINOPHIL % 1.8 % (0.0-4.0); GLOMERULAR FILTRATION RATE 79 ML/MIN (>89); GLUCOSE,RANDOM 93 MG/DL (74-106); HEMATOCRIT 36.1 % (35.0-46.0); LYMPH % 16.7 % (9.0-44.0); MEAN CELL VOLUME 89.1 FL (80.0-100.0); MEAN CORPUSCULAR HEMOGLOBIN 29.5 PG (27.0-34.0); MEAN CORPUSCULAR HGB CONC 33.2 % (32.0-36.0); MEAN PLATELET VOLUME 7.3 FL (7.0-11.0); MONO % 5.6 % (0.0-8.0); MONOCYTE # 0.7 TH/MM3 (0-0.9); PLATELET COUNT 273 TH/MM3 (150-450); RED BLOOD COUNT 4.05 MIL/MM3 (4.00-5.30); RED CELL DISTRIBUTION WIDTH 14.4 % (11.6-17.2); SODIUM (NA) 140 MEQ/L (136-145); WHITE BLOOD COUNT 12.1 TH/MM3 (4.0-11.0)
[2018-01-11 00:52] LABS: ALT (GPT) 29 U/L (10-53)
[2018-01-11 00:54] LABS: ALKALINE PHOSPHATASE 61 U/L (45-117); TOTAL BILIRUBIN ADULT 0.4 MG/DL (0.2-1.0); TOTAL PROTEIN 6.7 GM/DL (6.4-8.2)
[2018-01-11] MEDS ORDERED: IOHEXOL 350 MG/ML 10 ML VIAL (for RAD DIAG) IVCONTRAST ONE (01:15)
[2018-01-11 01:18] LABS: PROTHROMBIN TIME - PATIENT 10.1 SEC (9.8-11.6)
--- NOTE | 2018-01-11 01:37 | RADRPT ---
EXAM DATE/TIME: 01/11/2018 01:04 [facility] COMPARISON: No previous studies available for comparison. INDICATIONS : Right side abdominal pain and vomiting. IV CONTRAST: 90 cc Omnipaque 350 (iohexol) IV ORAL CONTRAST: No oral contrast ingested. RADIATION DOSE: 6.64 CTDIvol (mGy) MEDICAL HISTORY : Hypertension. CAD. COPD. Squamous cell carcinoma. SURGICAL HISTORY : Hysterectomy. Coronary artery stent. ENCOUNTER: Initial ACUITY: 3 days PAIN SCALE: 10/10 LOCATION: Right abdomen. TECHNIQUE: Volumetric scanning of the abdomen and pelvis was performed. Using automated exposure control and ad justment of the mA and/or kV according to patient size, radiation dose was kept as low as reasonably achievable to obtain optimal diagnostic quality images. DICOM format image data is available electro nically for review and comparison. FINDINGS: LOWER LUNGS: The visualized lower lungs are clear. LIVER: Homogeneous density without lesion. There is no dilation of the biliary tree. No calcified gallston es. SPLEEN: Normal size without lesion. PANCREAS: Within normal limits. KIDNEYS: Normal in size and shape. There is no mass, stone or hydronephrosis. ADRENAL GLANDS: Within normal limits. VASCULAR: There is no aortic aneurysm. BOWEL/MESENTERY: Gaseous distention of the ascending colon. No obstruction. Normal appendix. There is no free intrape ritoneal air. Small amount of pelvic fluid. ABDOMINAL WALL: Within normal limits. RETROPERITONEUM: There is no lymphadenopathy. BLADDER: No wall thickening or mass. REPRODUCTIVE: Within normal limits. INGUINAL: There is no lymphadenopathy or hernia. MUSCULOSKELETAL: Within normal limits for patient age. CONCLUSION: 1. Small amount of pelvic free fluid. 2. Normal appendix. 3. Gaseous distention of the ascending colon without obstruction. Aman Cruz MD on January 11, 2018 at 1:30 Board Certified Radiologist. This report was verified electronically.
[2018-01-11] MEDS ORDERED: HYDROmorphone HCL PF 2 MG/ML VIAL IV PUSH ONE (02:00)
[2018-01-11] MEDS ORDERED: SODIUM CHLOR 0.9% 1000 ML INJ 1,000 ML IV SCH (02:27)
[2018-01-11] MEDS ORDERED: PROCHLORPERAZINE INJ 10 MG/2 ML VIAL IV PUSH PRN (02:30)
[2018-01-11] MEDS ORDERED: SODIUM CHLORIDE 0.9% FLUSH 10 ML FLUSH IV FLUSH PRN ×2 (02:30→10:15)
[2018-01-11] MEDS: SODIUM CHLORIDE 0.9% FLUSH 10 ML FLUSH IV FLUSH SCH ×3 (02:30→20:58)
[2018-01-11] MEDS ORDERED: ONDANSETRON HCL 4 MG/2 ML VIAL IVP PRN (02:30)
[2018-01-11] MEDS ORDERED: NALOXONE HCL 0.4 MG/ML AMP IV PUSH PRN ×2 (02:30→10:15)
[2018-01-11] MEDS ORDERED: RESP: ALBUTEROL 2.5 MG/IPRATROPIUM 0.5 MG NEB (PRN) NEB (02:45)
[2018-01-11] MEDS ORDERED: ENALAPRILAT 1.25 MG/ML VIAL IV PUSH PRN (02:45)
[2018-01-11] MEDS ORDERED: SODIUM CHLOR 0.9% 1000 ML INJ 1,000 ML IV ONE ×2 (03:45)
--- NOTE | 2018-01-11 04:44 | PD ---
HPI . Abdominal pain Chief Complaint: Abdominal Pain Time Seen by Provider: 23:44 Travel History International Travel<30 days: No Contact w/Intl Traveler<30days: No Traveled to known affect area: No History of Present Illness HPI 67-year-old female history of cancer, presents with having right sided abdominal pain nausea and vomiting unable to tolerate p.o. today. Patient denies fever chills sweats, denies any dysuria urgency or frequency. No significant travel history and no significant idiosyncratic food intake. No recent antibiotics, no visitation anyone [facility] setting or hospital [facility] Past Medical History Narrative Medical Past medical history reviewed Autoimmune Disease: No Cancer: Yes (wartgring tumor) Cardiac Catheterization: Yes ( STINT 2001) Cardiovascular Problems: Yes (stent 2001) High Cholesterol: Yes COPD: Yes Diabetes: No Diminished Hearing: No Endocrine: No Genitourinary: No Hepatitis: No Hiatal Hernia: No Hypertension: Yes Immune Disorder: No Musculoskeletal: No Neurologic: No Psychiatric: No Respiratory: Yes (partial lung removal march 2017) Immunizations Current: Yes Thyroid Disease: No Ectopic : Yes Past Surgical History Abdominal Surgery: No AICD: No Body Medical Devices: 1 STENT CARDIAC Ear Surgery: No Endocrine Surgery: No Eye Surgery: No Genitourinary Surgery: No Gynecologic Surgery: Yes (hysterectomy) Hysterectomy: Yes Joint Replacement: No Oral Surgery: Yes (permanent bridge implanted) Pacemaker: No Thoracic Surgery: Yes (R SIDE ) Other Surgery: Yes Social History Alcohol Use: Yes (OCCAS BEER) Tobacco Use: Yes (1/2 PPD) Substance Use: No Allergies-Medications (Allergen,Severity, Reaction): Coded Allergies: No Known Allergies (Verified Allergy, Unknown, 01/11/18) Reported Meds & Prescriptions Reported Meds & Active Scripts Active Sm Stool Softener (Docusate Calcium) 240 Mg Cap 240 Mg PO HS Reported Calcium (Calcium Carbonate-Cholecalciferol) 1,250-100 Mg-Unit Chew 1 Tab CHEW DAILY Glucosamine (Glucosamine Sulfate) 500 Mg Cap 500 Mg PO DAILY Albuterol Neb (Albuterol Sulfate) 2.5 Mg/3 Ml Neb 2.5 Mg NEB TID NEB PRN Zyrtec (Cetirizine HCl) 10 Mg Tablet 1 Tab PO DAILY Amlodipine (Amlodipine Besylate) 5 Mg Tab 5 Mg PO DAILY Multi For Her 50+ (Multiple Vitamins W/ Minerals) 1 Tab Tab 1 Tab PO DAILY Atorvastatin (Atorvastatin Calcium) 80 Mg Tab 80 Mg PO HS Alendronate (Alendronate Sodium) 70 Mg Tab 70 Mg PO Q7D Lisinopril 40 Mg Tab 40 Mg PO BID Narrative Medication Allergies and medications reviewed Review of Systems Except as stated in HPI: all other systems reviewed are Neg General / Constitutional: No: Fever Eyes: No: Visual changes HENT: No: Headaches Cardiovascular: No: Chest Pain or Discomfort Respiratory: No: Shortness of Breath Gastrointestinal: Positive: Nausea, Vomiting, Abdominal Pain, No: Diarrhea Genitourinary: No: Urgency, Frequency, Dysuria, Hematuria, Pelvic Pain, Flank Pain Musculoskeletal: No: Pain Skin: No Rash Neurologic: No: Weakness Psychiatric: No: Depression Endocrine: No: Polydipsia Hematologic/Lymphatic: No: Easy Bruising Physical Exam Narrative GENERAL: Awake and alert, slightly ill-appearing, vital signs afebrile normal and stable SKIN: Warm and dry. Skin color is sallow and slightly pale, no diaphoresis cyanosis HEAD: Atraumatic. Normocephalic. EYES: Pupils equal and round. No scleral icterus. No injection or drainage. ENT: No nasal bleeding or discharge. Mucous membranes pink and moist. NECK: Trachea midline. No JVD. Supple full range of motion CARDIOVASCULAR: Regular rate and rhythm. S1-S2 no murmurs rubs gallops RESPIRATORY: No accessory muscle use. Clear to auscultation. Breath sounds equal bilaterally. GASTROINTESTINAL: Abdomen soft, markedly tender right sided paracolic, nondistended. Hepatic and splenic margins not palpable. MUSCULOSKELETAL: Extremities without clubbing, cyanosis, or edema. No obvious deformities. NEUROLOGICAL: Awake and alert. No obvious focal deficit. PSYCHIATRIC: Appropriate mood and affect; insight and judgment normal. Data Data Last Documented VS Vital Signs Date Time Temp Pulse Resp B/P (MAP) Pulse Ox O2 Delivery O2 Flow Rate FiO2 01/11/18 00:52 98 Room Air 01/10/18 23:43 98.1 82 16 154/69 (97) Orders Orders Complete Blood Count With Diff (01/10/18 23:45) Comprehensive Metabolic Panel (01/10/18 23:45) Lipase (01/10/18 23:45) Lactic Acid (01/10/18 23:45) Prothrombin Time / Inr (Pt) (01/10/18 23:45) Act Partial Throm Time (Ptt) (01/10/18 23:45) Urinalysis - C+S If Indicated (01/10/18 23:45) Iv Access Insert/Monitor (01/10/18 23:45) Ecg Monitoring (01/10/18 23:45) Oximetry (01/10/18 23:45) Sodium Chloride 0.9% Flush (Ns Flush) (01/10/18 23:45) Abdomen, Kub Only (01/10/18 23:45) Sodium Chlor 0.9% 1000 Ml Inj (Ns 1000 M (01/11/18 00:00) Ondansetron Inj (Zofran Inj) (01/11/18 00:00) Ondansetron Inj (Zofran Inj) (01/10/18 23:55) Ct Abd/Pel W Iv Contrast(Rout) (01/11/18 ) Oral Contrast - Adult (01/11/18 00:25) Iohexol 350 Inj (Omnipaque 350 Inj) (01/11/18 01:15) Hydromorphone Pf Inj (Dilaudid Pf Inj) (01/11/18 02:00) Admit Order (Ed Use Only) (01/11/18 02:26) Place In Observation (01/11/18 ) Vital Signs (Adult) Q4H (01/11/18 02:27) Activity Oob With Assistance (01/11/18 02:27) Superintendent Power / Telemetry .CONTINUOUS (01/11/18 02:27) Diet Npo (01/11/18 Breakfast) Sodium Chlor 0.9% 1000 Ml Inj (Ns 1000 M (01/11/18 02:27) Sodium Chloride 0.9% Flush (Ns Flush) (01/11/18 02:30) Sodium Chloride 0.9% Flush (Ns Flush) (01/11/18 02:30) Ondansetron Inj (Zofran Inj) (01/11/18 02:30) Basic Metabolic Panel (Bmp) (01/12/18 06:00) Complete Blood Count With Diff (01/12/18 06:00) Scd Bilateral/Knee High MONIKA.BID (01/11/18 02:27) Orlin Bilateral/Knee High MONIKA.QSHIFT (01/11/18 02:27) Naloxone Inj (Narcan Inj) (01/11/18 02:30) Prochlorperazine Inj (Compazine Inj) (01/11/18 02:30) Labs Laboratory Tests Test 01/11/18 00:20 01/11/18 00:24 White Blood Count 12.1 TH/MM3 Red Blood Count 4.05 MIL/MM3 Hemoglobin 12.0 GM/DL Hematocrit 36.1 % Mean Corpuscular Volume 89.1 FL Mean Corpuscular Hemoglobin 29.5 PG Mean Corpuscular Hemoglobin Concent 33.2 % Red Cell Distribution Width 14.4 % Platelet Count 273 TH/MM3 Mean Platelet Volume 7.3 FL Neutrophils (%) (Auto) 75.0 % Lymphocytes (%) (Auto) 16.7 % Monocytes (%) (Auto) 5.6 % Eosinophils (%) (Auto) 1.8 % Basophils (%) (Auto) 0.9 % Neutrophils # (Auto) 9.0 TH/MM3 Lymphocytes # (Auto) 2.0 TH/MM3 Monocytes # (Auto) 0.7 TH/MM3 Eosinophils # (Auto) 0.2 TH/MM3 Basophils # (Auto) 0.1 TH/MM3 CBC Comment DIFF FINAL Differential Comment Prothrombin Time 10.1 SEC Prothromb Time International Ratio 1.0 RATIO Activated Partial Thromboplast Time 22.6 SEC Blood Urea Nitrogen 10 MG/DL Creatinine 0.74 MG/DL Random Glucose 93 MG/DL Total Protein 6.7 GM/DL Albumin 3.3 GM/DL Calcium Level 8.2 MG/DL Alkaline Phosphatase 61 U/L Aspartate Amino Transf (AST/SGOT) 34 U/L Alanine Aminotransferase (ALT/SGPT) 29 U/L Total Bilirubin 0.4 MG/DL Sodium Level 140 MEQ/L Potassium Level 3.8 MEQ/L Chloride Level 108 MEQ/L Carbon Dioxide Level 24.4 MEQ/L Anion Gap 8 MEQ/L Estimat Glomerular Filtration Rate 79 ML/MIN Lactic Acid Level 0.5 mmol/L Lipase 146 U/L Urine Color YELLOW Urine Turbidity CLEAR Urine pH 6.5 Urine Specific [place] 1.010 Urine Protein TRACE mg/dL Urine Glucose (UA) NEG mg/dL Urine Ketones 10 mg/dL Urine Occult Blood SMALL Urine Nitrite NEG Urine Bilirubin NEG Urine Urobilinogen LESS THAN 2.0 MG/DL Urine Leukocyte Esterase TRACE Urine RBC 26 /hpf Urine WBC 3 /hpf Urine Squamous Epithelial Cells 3 /hpf Urine Amorphous Sediment RARE Urine Mucus FEW /lpf Microscopic Urinalysis Comment CULT NOT INDICATED MDM Medical Decision Making Medical Screen Exam Complete: Yes Emergency Medical Condition: Yes Medical Record Reviewed: Yes Differential Diagnosis Acute appendicitis, colonic obstruction, colitis, diverticulitis Narrative Course Patient's laboratory examinations reviewed, patient has mildly elevated white blood cell count 12.5. CT abdomen pelvis reviewed, patient has dilated a sending colon with possible lead point at the hepatic flexure. Appendix normal Case discussed with hospitalist service, admitted for gastroenterology consultation and possible colonoscopy. Patient's previous history of cancer discussed Diagnosis Primary Impression: Colonic obstruction Admitting Information Admitting Physician Requests: Admit Lupillo Keene MD Jan 11, 2018 04:44
[2018-01-11] MEDS: HYDROmorphone HCL PF 2 MG/ML VIAL IV PRN ×3 (07:57→20:58)
--- NOTE | 2018-01-11 10:11 | HHI.HP ---
[facility] Service [place] Hospitalists Primary Care Physician Non-Staff Admission Diagnosis Colonic Obstruction Diagnoses: Chief Complaint: Abdominal pain Travel History International Travel<30 Days: No Contact w/Intl Traveler <30 Da: No Traveled to Known Affected Are: No History of Present Illness Patient is a 67-year-old female. History of lung cancer. Presents with having right sided abdominal pain with some nausea and vomiting. Has been unable to tolerate oral intake yesterday. Patient denies any fevers denies any chills denies any sweating denies any dysuria urgency or frequency. Denies any recent antibiotics. Denies any contact with anyone sick. Denies any strange food intake. Denies any urinary symptoms. States she has not had a bowel movement since yesterday Review of Systems Constitutional: COMPLAINS OF: Change in appetite, DENIES: Diaphoretic episodes , Fatigue, Fever, Weight gain, Weight loss, Chills, Dizziness, Night Sweats Endocrine: DENIES: Abnorml menstrual pattern, Heat/cold intolerance, Polydipsia , Polyuria, Polyphagia Eyes: DENIES: Blurred vision, Diplopia, Eye inflammation, Eye pain, Vision loss , Photosensitivity Ears, nose, mouth, throat: DENIES: Tinnitus, Hearing loss, Vertigo, Nasal discharge, Oral lesions, Throat pain, Hoarseness, Ear Pain, Running Nose Respiratory: DENIES: Apneas, Cough, Snoring, Wheezing, Hemoptysis, Sputum production, Shortness of breath Cardiovascular: DENIES: Chest pain, Palpitations, Syncope, Dyspnea on Exertion , PND, Lower Extremity Edema Gastrointestinal: COMPLAINS OF: Abdominal pain, Nausea, Vomiting, DENIES: Black stools, Bloody stools, Constipation, Diarrhea, Difficulty Swallowing Genitourinary: DENIES: Abnormal vaginal bleeding, Dysmenorrhea, Dyspareunia, Sexual dysfunction, Urinary frequency, Urinary incontinence Musculoskeletal: DENIES: Joint pain, Muscle aches, Stiffness, Joint Swelling, Back pain, Neck pain Integumentary: DENIES: Abnormal pigmentation, Pruritus, Rash, Nail changes, Breast masses, Breast skin changes, Nipple discharge Hematologic/lymphatic: DENIES: Bruising, Lymphadenopathy Immunologic/allergic: DENIES: Eczema, Urticaria Neurologic: DENIES: Abnormal gait, Headache, Localized weakness, Paresthesias, Seizures, Speech Problems, Tremor, Poor Balance Psychiatric: DENIES: Anxiety, Confusion, Mood changes, Depression, Hallucinations, Agitation, Suicidal Ideation, Homicidal Ideation, Delusions Except as stated in HPI: all other systems reviewed are Neg Past Family Social History Past Medical History Lung tumor with removal History of cardiac stenting Hyperlipidemia COPD tobacco abuse Hypertension Partial lung removal in March 2017 History of ectopic Past Surgical History History of cardiac stenting Hysterectomy Oral surgery for permanent bridge implantation Right-sided lung surgery Reported Medications Reported Meds & Active Scripts Active Sm Stool Softener (Docusate Calcium) 240 Mg Cap 240 Mg PO HS Reported Calcium (Calcium Carbonate-Cholecalciferol) 1,250-100 Mg-Unit Chew 1 Tab CHEW DAILY Glucosamine (Glucosamine Sulfate) 500 Mg Cap 500 Mg PO DAILY Albuterol Neb (Albuterol Sulfate) 2.5 Mg/3 Ml Neb 2.5 Mg NEB TID NEB PRN Zyrtec (Cetirizine HCl) 10 Mg Tablet 1 Tab PO DAILY Amlodipine (Amlodipine Besylate) 5 Mg Tab 5 Mg PO DAILY Multi For Her 50+ (Multiple Vitamins W/ Minerals) 1 Tab Tab 1 Tab PO DAILY Atorvastatin (Atorvastatin Calcium) 80 Mg Tab 80 Mg PO HS Alendronate (Alendronate Sodium) 70 Mg Tab 70 Mg PO Q7D Lisinopril 40 Mg Tab 40 Mg PO BID Allergies: Coded Allergies: No Known Allergies (Verified Allergy, Unknown, 01/11/18) Active Ordered Medications Current Medications Sodium Chloride (NS Flush) 2 ml UNSCH PRN IV FLUSH FLUSH AFTER USING IV ACCESS Last administered on 01/11/18at 00:50; Start 01/10/18 at 23:45; Stop 01/11/18 at 02:40; Status DC Sodium Chloride 1,000 ml @ 999 mls/hr BOLUS ONCE IV Last administered on 01/11at 00:02; Start 01/11/18 at 00:00; Stop 01/11/18 at 01:00; Status DC Ondansetron HCl (Zofran Inj) 4 mg ONCE ONCE IV PUSH Last administered on at 00:02; Start 01/11/18 at 00:00; Stop 01/11/18 at 00:01; Status DC Ondansetron HCl (Zofran Inj) 4 mg STK-MED ONCE .ROUTE ; Start 01/10/18 at 23:55 ; Stop 01/10/18 at 23:56; Status DC Iohexol (Omnipaque 350 Inj) 90 ml STK-MED ONCE IVCONTRAST Last administered on 01/11/18at 01:15; Start 01/11/18 at 01:15; Stop 01/11/18 at 01:16; Status DC Hydromorphone HCl (Dilaudid Pf Inj) 1 mg ONCE ONCE IV PUSH Last administered on 01/11/18at 02:56; Start 01/11/18 at 02:00; Stop 01/11/18 at 02:01; Status DC Sodium Chloride 1,000 ml @ 100 mls/hr Q10H IV Last administered on 01/11/18at 03:37; Start 01/11/18 at 02:27 Sodium Chloride (NS Flush) 2 ml UNSCH PRN IV FLUSH FLUSH AFTER USING IV ACCESS ; Start 01/11/18 at 02:30 Sodium Chloride (NS Flush) 2 ml BID IV FLUSH ; Start 01/11/18 at 02:30 Ondansetron HCl (Zofran Inj) 4 mg Q6H PRN IVP NAUSEA OR VOMITING Last administered on 01/11/18at 07:57; Start 01/11/18 at 02:30 Naloxone HCl (Narcan Inj) 0.4 mg UNSCH PRN IV PUSH SEE LABEL COMMENTS; Start at 02:30 Hydromorphone HCl (Dilaudid Pf Inj) 1 mg Q4H PRN IV PAIN GREATER THAN 4 Last administered on 01/11/18at 07:57; Start 01/11/18 at 02:45 Prochlorperazine Edisylate (Compazine Inj) 5 mg Q4H PRN IV PUSH NAUSEA OR VOMITING; Start 01/11/18 at 02:30 Albuterol/ Ipratropium (Duoneb Neb) 1 ampule Q4HR NEB PRN NEB SOB/WHEEZING; Start 01/11/18 at 02:45 Enalaprilat (Vasotec Inj) 2.5 mg Q6H PRN IV PUSH SEE LABEL COMMENTS; Start at 02:45 Sodium Chloride 1,000 ml @ 999 mls/hr BOLUS ONCE IV Last administered on 01/11at 04:21; Start 01/11/18 at 03:45; Stop 01/11/18 at 04:45; Status DC Family History High blood pressure and heart disease in the family Social History Occasional beer Still smokes a half a pack of cigarettes daily Denies any substance abuse Physical Exam Vital Signs Vital Signs Date Time Temp Pulse Resp B/P (MAP) Pulse Ox O2 Delivery O2 Flow Rate FiO2 01/11/18 08:27 16 01/11/18 07:00 89 16 134/69 (90) 98 Room Air 01/11/18 05:25 79 16 129/65 (86) 98 Room Air 01/11/18 03:37 79 17 101/59 (73) 96 Room Air 01/11/18 00:52 98 Room Air 01/10/18 23:43 98.1 82 16 154/69 (97) Physical Exam GENERAL: This is a well-nourished, well-developed patient, in mild distress. SKIN: No rashes, ecchymoses or lesions. Cool and dry. HEAD: Atraumatic. Normocephalic. No temporal or scalp tenderness. EYES: Pupils equal round and reactive. Extraocular motions intact. No scleral icterus. No injection or drainage. ENT: Nose without bleeding, purulent drainage or septal hematoma. Throat without erythema, tonsillar hypertrophy or exudate. Uvula midline. Airway patent. NECK: Trachea midline. No JVD or lymphadenopathy. Supple, nontender, no meningeal signs. CARDIOVASCULAR: Regular rate and rhythm without murmurs, gallops, or rubs. S1- S2 no S3 or S4 RESPIRATORY: Clear to auscultation. Breath sounds equal bilaterally. No wheezes , rales, or rhonchi. GASTROINTESTINAL: Abdomen soft, nondistended. No hepato-splenomegaly, or palpable masses. No guarding. Mild abdominal tenderness right side of abdomen and right lower quadrant MUSCULOSKELETAL: Extremities without clubbing, cyanosis, or edema. No joint tenderness, effusion, or edema noted. No calf tenderness. Negative Homans sign bilaterally. NEUROLOGICAL: Awake and alert. Cranial nerves II through XII intact. Motor and sensory grossly within normal limits. Five out of 5 muscle strength in all muscle groups. Normal speech. Insight and judgment is good Mood and behaviors are appropriate Laboratory Laboratory Tests Test 01/11/18 00:20 01/11/18 00:24 White Blood Count 12.1 Red Blood Count 4.05 Hemoglobin 12.0 Hematocrit 36.1 Mean Corpuscular Volume 89.1 Mean Corpuscular Hemoglobin 29.5 Mean Corpuscular Hemoglobin Concent 33.2 Red Cell Distribution Width 14.4 Platelet Count 273 Mean Platelet Volume 7.3 Neutrophils (%) (Auto) 75.0 Lymphocytes (%) (Auto) 16.7 Monocytes (%) (Auto) 5.6 Eosinophils (%) (Auto) 1.8 Basophils (%) (Auto) 0.9 Neutrophils # (Auto) 9.0 Lymphocytes # (Auto) 2.0 Monocytes # (Auto) 0.7 Eosinophils # (Auto) 0.2 Basophils # (Auto) 0.1 CBC Comment DIFF FINAL Differential Comment Prothrombin Time 10.1 Prothromb Time International Ratio 1.0 Activated Partial Thromboplast Time 22.6 Blood Urea Nitrogen 10 Creatinine 0.74 Random Glucose 93 Total Protein 6.7 Albumin 3.3 Calcium Level 8.2 Alkaline Phosphatase 61 Aspartate Amino Transf (AST/SGOT) 34 Alanine Aminotransferase (ALT/SGPT) 29 Total Bilirubin 0.4 Sodium Level 140 Potassium Level 3.8 Chloride Level 108 Carbon Dioxide Level 24.4 Anion Gap 8 Estimat Glomerular Filtration Rate 79 Lactic Acid Level 0.5 Lipase 146 Urine Color YELLOW Urine Turbidity CLEAR Urine pH 6.5 Urine Specific [place] 1.010 Urine Protein TRACE Urine Glucose (UA) NEG Urine Ketones 10 Urine Occult Blood SMALL Urine Nitrite NEG Urine Bilirubin NEG Urine Urobilinogen LESS THAN 2.0 Urine Leukocyte Esterase TRACE Urine RBC 26 Urine WBC 3 Urine Squamous Epithelial Cells 3 Urine Amorphous Sediment RARE Urine Mucus FEW Microscopic Urinalysis Comment CULT NOT INDICATED Result Diagram: 01/11/18 0020 01/11/18 0020 Imaging Last Impressions Abdomen/Pelvis CT 01/11/18 0000 Signed Impressions: Service Date/Time: Thursday, January 11, 2018 01:04 - CONCLUSION: 1. Small amount of pelvic free fluid. 2. Normal appendix. 3. Gaseous distention of the ascending colon without obstruction. Aman Cruz MD Abdomen X-Ray 01/10/18 2345 Signed Impressions: Service Date/Time: Thursday, January 11, 2018 00:02 - CONCLUSION: Mild gaseous distention of bowel loops in right abdomen without obstruction. Round benign-appearing calcification to the left of L4 vertebral body. Aman Cruz MD Caprinjose david VTE Risk Assessment Caprini VTE Risk Assessment: Mod/High Risk (score >= 2) Caprini Risk Assessment Model Point Value = 1 Point Value = 2 Point Value = 3 Point Value = 5 Age 41-60 Minor surgery BMI > 25 kg/m2 Swollen legs Varicose veins or History of unexplained or recurrent spontaneous Oral contraceptives or hormone replacement Sepsis (< 1 month) Serious lung disease, including pneumonia (< 1 month) Abnormal pulmonary function Acute myocardial infarction Congestive heart failure (< 1 month) History of inflammatory bowel disease Medical patient at bed rest Age 61-74 Arthroscopic surgery Major open surgery (> 45 min) Laparoscopic surgery (> 45 min) Malignancy Confined to bed (> 72 hours) Immobilizing plaster cast Central venous access Age >= 75 History of VTE Family history of VTE Factor V Leiden Prothrombin [id number] Lupus anticoagulant Anticardiolipin antibodies Elevated serum homocysteine Heparin-induced thrombocytopenia Other congenital or acquired thrombophilia Stroke (< 1 month) Elective arthroplasty Hip, pelvis, or leg fracture Acute spinal cord injury (< 1 month) Prophylaxis Regimen Total Risk Factor Score Risk Level Prophylaxis Regimen 0-1 Low Early ambulation 2 Moderate Order ONE of the following: *Sequential Compression Device (SCD) *Heparin 5000 units SQ BID 3-4 Higher Order ONE of the following medications: *Heparin 5000 units SQ TID *Enoxaparin/Lovenox 40 mg SQ daily (WT < 150 kg, CrCl > 30 mL/min) *Enoxaparin/Lovenox 30 mg SQ daily (WT < 150 kg, CrCl > 10-29 mL/min) *Enoxaparin/Lovenox 30 mg SQ BID (WT < 150 kg, CrCl > 30 mL/min) AND/OR *Sequential Compression Device (SCD) 5 or more Highest Order ONE of the following medications: *Heparin 5000 units SQ TID (Preferred with Epidurals) *Enoxaparin/Lovenox 40 mg SQ daily (WT < 150 kg, CrCl > 30 mL/min) *Enoxaparin/Lovenox 30 mg SQ daily (WT < 150 kg, CrCl > 10-29 mL/min) *Enoxaparin/Lovenox 30 mg SQ BID (WT < 150 kg, CrCl > 30 mL/min) AND *Sequential Compression Device (SCD) Assessment and Plan Assessment and Plan Abdominal pain and bloating we will consult gastroenterology Constipation might need a colonoscopy Nausea vomiting continue on antiemetics Leukocytosis a.m. labs Tobacco abuse recommend smoking cessation History of right lung resection for cancer History of hysterectomy Code Status Full code Discussed Condition With Consult gastroenterology discussed with them Discussed with patient and RN Barry Najera DO Jan 11, 2018 10:11
[2018-01-11] MEDS ORDERED: CALCIUM CARBONATE CHOLECALCIFEROL CHEW SCH (10:15)
[2018-01-11] MEDS ORDERED: NON-FORMULARY DRUG (Glucosamine 500 MG) PO SCH (10:15)
[2018-01-11] MEDS ORDERED: LACTULOSE SYRUP 20 GM/30 ML CUP PO PRN (10:15)
[2018-01-11] MEDS ORDERED: BISACODYL 10 MG SUPP RECTAL PRN (10:15)
[2018-01-11] MEDS ORDERED: METOCLOPRAMIDE HCL 10 MG/2 ML VIAL IV PUSH PRN (10:15)
[2018-01-11] MEDS ORDERED: ZOLPIDEM TARTRATE 5 MG TAB PO PRN (10:15)
[2018-01-11] MEDS ORDERED: ACETAMINOPHEN 325 MG TAB PO PRN ×2 (10:15)
[2018-01-11] MEDS ORDERED: SENNOSIDES 8.6 MG TAB PO PRN (10:15)
[2018-01-11] MEDS ORDERED: MAGNESIUM HYDROXIDE SUSP 30 ML CUP PO PRN (10:15)
--- NOTE | 2018-01-11 10:29 | PD.CONS ---
HPI History of Present Illness This is a 67 year old F with PMH significant for COPD, HTN, RUL squamous cell carcinoma and left upper lung adenocarcinoma S/P left upper lobectomy and mediastinal lymph node dissection. Pt presented to the ER with complaints of abdominal pain that begins above her pelvis and radiates up to her umbilicus and to the right side of her abdomen. Tried a heating pad with no relief. Pt reports yesterday morning she woke up with diarrhea, denies any blood in the stool or melena. Later in the day she felt that she needed to have a BM so she took a stool softener and was unable to go. Pt has history of "intestinal kink" multiple years ago, states resolved on its own and did not require surgical intervention. She feels like this pain was similar. Also having nausea and one isolated episode of emesis, now just dry-heaving because she has not had anything to eat. Admits to some chills, did not take her temperature. Denies acid reflux, heartburn, dysphagia, odynophagia, weight loss. Has never had EGD. Last colonoscopy was 5 yrs ago and states findings of polyps, due for repeat exam next month. Admits to occasion ETOH. Smokes 10 cigarettes a day. Denies illicit drug use. Also admits to taking a lot of Ibuprofen recently for back pain. (Jessy Rdz) PFSH Past Medical History Anxiety Cataract COPD HTN Hyperlipidemia Osteoporosis Adenocarcinoma of lung Past Surgical History Hysterectomy Mitral valve replacement left upper lobectomy and mediastinal lymph node dissection Colonoscopy (Jessy Rdz) Coded Allergies: No Known Allergies (Verified Allergy, Unknown, 01/11/18) Social History ETOH- drinks beer occasionally Smokes 10 cigarettes a day Denies illicit drug use (Jessy Rdz) Review of Systems Gastrointestinal: COMPLAINS OF: Abdominal pain, Constipation, Diarrhea, Nausea , Vomiting, DENIES: Black stools, Bloody stools, Difficulty Swallowing, Odynophagia, Swelling of Abdomen, Heartburn, Hematemesis (Jessy Rdz) GI Exam Vitals I&O Vital Signs Date Time Temp Pulse Resp B/P (MAP) Pulse Ox O2 Delivery O2 Flow Rate FiO2 01/11/18 08:27 16 01/11/18 07:00 89 16 134/69 (90) 98 Room Air 01/11/18 05:25 79 16 129/65 (86) 98 Room Air 01/11/18 03:37 79 17 101/59 (73) 96 Room Air 01/11/18 00:52 98 Room Air 01/10/18 23:43 98.1 82 16 154/69 (97) Imaging Last Impressions Abdomen/Pelvis CT 01/11/18 0000 Signed Impressions: Service Date/Time: Thursday, January 11, 2018 01:04 - CONCLUSION: 1. Small amount of pelvic free fluid. 2. Normal appendix. 3. Gaseous distention of the ascending colon without obstruction. Aman Cruz MD Abdomen X-Ray 01/10/18 2345 Signed Impressions: Service Date/Time: Thursday, January 11, 2018 00:02 - CONCLUSION: Mild gaseous distention of bowel loops in right abdomen without obstruction. Round benign-appearing calcification to the left of L4 vertebral body. Aman Cruz MD Laboratory Test 01/11/18 00:20 01/11/18 00:24 White Blood Count 12.1 TH/MM3 Red Blood Count 4.05 MIL/MM3 Hemoglobin 12.0 GM/DL Hematocrit 36.1 % Mean Corpuscular Volume 89.1 FL Mean Corpuscular Hemoglobin 29.5 PG Mean Corpuscular Hemoglobin Concent 33.2 % Red Cell Distribution Width 14.4 % Platelet Count 273 TH/MM3 Mean Platelet Volume 7.3 FL Neutrophils (%) (Auto) 75.0 % Lymphocytes (%) (Auto) 16.7 % Monocytes (%) (Auto) 5.6 % Eosinophils (%) (Auto) 1.8 % Basophils (%) (Auto) 0.9 % Neutrophils # (Auto) 9.0 TH/MM3 Lymphocytes # (Auto) 2.0 TH/MM3 Monocytes # (Auto) 0.7 TH/MM3 Eosinophils # (Auto) 0.2 TH/MM3 Basophils # (Auto) 0.1 TH/MM3 CBC Comment DIFF FINAL Differential Comment Prothrombin Time 10.1 SEC Prothromb Time International Ratio 1.0 RATIO Activated Partial Thromboplast Time 22.6 SEC Blood Urea Nitrogen 10 MG/DL Creatinine 0.74 MG/DL Random Glucose 93 MG/DL Total Protein 6.7 GM/DL Albumin 3.3 GM/DL Calcium Level 8.2 MG/DL Alkaline Phosphatase 61 U/L Aspartate Amino Transf (AST/SGOT) 34 U/L Alanine Aminotransferase (ALT/SGPT) 29 U/L Total Bilirubin 0.4 MG/DL Sodium Level 140 MEQ/L Potassium Level 3.8 MEQ/L Chloride Level 108 MEQ/L Carbon Dioxide Level 24.4 MEQ/L Anion Gap 8 MEQ/L Estimat Glomerular Filtration Rate 79 ML/MIN Lactic Acid Level 0.5 mmol/L Lipase 146 U/L Urine Color YELLOW Urine Turbidity CLEAR Urine pH 6.5 Urine Specific [place] 1.010 Urine Protein TRACE mg/dL Urine Glucose (UA) NEG mg/dL Urine Ketones 10 mg/dL Urine Occult Blood SMALL Urine Nitrite NEG Urine Bilirubin NEG Urine Urobilinogen LESS THAN 2.0 MG/DL Urine Leukocyte Esterase TRACE Urine RBC 26 /hpf Urine WBC 3 /hpf Urine Squamous Epithelial Cells 3 /hpf Urine Amorphous Sediment RARE Urine Mucus FEW /lpf Microscopic Urinalysis Comment CULT NOT INDICATED Physical Examination HEENT: Normocephalic; atraumatic CHEST: Even/unlabored CARDIAC: RRR ABDOMEN: Soft, nondistended, mild lower abdominal TTP, bowel sounds active EXTREMITIES: No clubbing, cyanosis, or edema. SKIN: Normal; no rash; no jaundice. MEAT AND SEAFOOD CLERK: No focal deficits; alert and oriented times three. (Jessy Rdz [facility]) Assessment and Plan Plan Assessment: - Reports of abdominal pain- states starts in low mid abdomen radiates to umbilicus and right side of abdomen. Reports diarrhea yesterday morning which stopped then she felt she needed to have a BM so she took a stool softener with no BM and no relief of symptoms. States history of "kink in her intestine" resolved on its own, denies surgery. Ct abdomen and pelvis W IV contrast --> Small amount of pelvic free fluid. Normal appendix, Gaseous distention of the ascending colon without obstruction. Last colonoscopy 5 years ago, states polyps, due for repeat exam next month - Nausea and vomiting- one isolated episode- yesterday, now just dry heaving, has not eaten. Denies hematemesis and coffee ground emesis. Has never had EGD. Of note, reports taking Ibuprofen frequently for back pain. Plan: EGD/colonoscopy Indication(EGD: N/vomiting/dry heaving- frequent Ibuprofen use) (Colonoscopy: Abdominal pain, distention) Obtain consent Clear liquids today Magnesium Citrate prep NPO after MN Zofran PRN for nausea Stool studies Further recommendations based on findings of above Pt has been seen and examined by myself and Dr. Rogers and this note is written on his behalf (Jessy Rdz) Physician Comments Patient seen and examined Agree with above Continue with current supportive care Monitor labs Plan for an EGD and a colonoscopy tomorrow (Kailash Rogers MD) Jessy Rdz Jan 11, 2018 10:29 Kailash Rogers MD Jan 11, 2018 23:00
[2018-01-11] MEDS: amLODIPine BESYLATE 5 MG TAB PO SCH (11:18)
[2018-01-11] MEDS: SODIUM CHLOR 0.9% 1000 ML INJ 1,000 ML IV SCH ×2 (11:19→20:53)
[2018-01-11] MEDS ORDERED: NICOTINE 14 MG/24 HR PATCH T-DERMAL ONE (12:00)
[2018-01-11] MEDS: CETIRIZINE HCL 10 MG TAB PO SCH (13:42)
[2018-01-11] MEDS: LISINOPRIL 20 MG TAB PO SCH ×2 (13:43→22:02)
[2018-01-11] MEDS: MULTIVITAMINS/MINERALS THERAPEUTIC TAB PO SCH (13:43)
[2018-01-11] MEDS ORDERED: MAGNESIUM CITRATE SOLN 300 ML BTL PO ONE ×2 (16:00→18:00)
[2018-01-11] MEDS: ONDANSETRON HCL 4 MG/2 ML VIAL IVP PRN (20:58)
[2018-01-11] MEDS ORDERED: DOCUSATE CALCIUM 240 MG CAP PO SCH (21:00)
[2018-01-11] MEDS: DOCUSATE SODIUM 50 MG/SENNA 8.6 MG TAB PO SCH (22:01)
[2018-01-11] MEDS: ATORVASTATIN 80 MG TAB PO SCH (22:01)
[2018-01-12] MEDS ORDERED: POVIDONE IODINE 5% (ANTISEPSIS KIT) 4 APPLICATIONS EACH NARE PRN ×2 (02:15→20:45)
[2018-01-12] MEDS ORDERED: SODIUM CHLORID 0.9% 500 ML IV PRN ×2 (02:15→20:45)
[2018-01-12] MEDS ORDERED: LACTATED RINGER'S 1000 ML IV PRN ×2 (02:15→20:45)
[2018-01-12] MEDS ORDERED: CHLORHEXIDINE GLUCONATE 2 % 1 PACK (2 CLOTHS) TOPICAL PRN ×2 (02:15→20:45)
[2018-01-12 02:57] VITALS: BP 136/66; PULSE 98; RESP 18; TEMP 98.4; O2SAT 94
[2018-01-12] MEDS: HYDROmorphone HCL PF 2 MG/ML VIAL IV PRN (03:02)
[2018-01-12] MEDS: ONDANSETRON HCL 4 MG/2 ML VIAL IVP PRN ×2 (03:02→08:58)
[2018-01-12 05:45] VITALS: BP 119/66; PULSE 90; RESP 16; TEMP 97.8; O2SAT 90
[2018-01-12] MEDS: SODIUM CHLOR 0.9% 1000 ML INJ 1,000 ML IV SCH ×2 (07:00→18:05)
[2018-01-12 08:33] VITALS: BP 144/69; PULSE 102; RESP 20; TEMP 98.1; O2SAT 90
[2018-01-12] MEDS: DOCUSATE SODIUM 50 MG/SENNA 8.6 MG TAB PO SCH (09:00)
[2018-01-12] MEDS: amLODIPine BESYLATE 5 MG TAB PO SCH (09:07)
[2018-01-12] MEDS: MULTIVITAMINS/MINERALS THERAPEUTIC TAB PO SCH (09:07)
[2018-01-12] MEDS: LISINOPRIL 20 MG TAB PO SCH ×2 (09:07→21:00)
[2018-01-12] MEDS: CETIRIZINE HCL 10 MG TAB PO SCH (09:07)
[2018-01-12] MEDS: oxyCODONE/ACETAMINOPHEN 5 MG/325 MG TAB PO PRN (09:08)
[2018-01-12] MEDS: SODIUM CHLORIDE 0.9% FLUSH 10 ML FLUSH IV FLUSH SCH ×2 (09:08→21:00)
[2018-01-12] MEDS: RESP: ALBUTEROL 2.5 MG/3 ML NEB (PRN) NEB (09:53)
[2018-01-12] MEDS ORDERED: ONDANSETRON HCL 4 MG/2 ML VIAL IV ONE (12:00)
[2018-01-12] MEDS ORDERED: SUCCINYLCHOLINE CHLORIDE 200 MG/10 ML VIAL IV ONE (12:00)
[2018-01-12] MEDS ORDERED: PHENYLEPH/NS 1000 MCG/10 ML SYR IV ONE (12:00)
[2018-01-12] MEDS ORDERED: PROPOFOL 200 MG/20 ML AMP IV ONE ×2 (12:00)
[2018-01-12] MEDS ORDERED: LIDOCAINE HCL 1% PF 5 ML SYRINGE OTHER ONE ×2 (12:00)
[2018-01-12] MEDS ORDERED: LACTATED RINGER'S 1000 ML INJ 1,000 ML IV ONE (12:00)
[2018-01-12] MEDS ORDERED: ePHEDrine/NS 25 MG/5 ML SYRINGE IV ONE (12:00)
[2018-01-12] MEDS ORDERED: ceFAZolin INJ 1,000 MG VIAL IV ONE ×2 (12:00→22:32)
[2018-01-12] MEDS ORDERED: DEXAMETHASONE SOD PHOS 4 MG/ML VIAL IV ONE (12:00)
[2018-01-12 12:10] VITALS: BP 137/64; PULSE 86; RESP 18; TEMP 97.7; O2SAT 90
--- NOTE | 2018-01-12 12:24 | EKG ---
Date Performed: 01/11/2018 Time Performed: 20:43:31 PTAGE: 67 years EKG: Sinus rhythm WITH OCCASIONAL SUPRAVENTRICULAR PREMATURE COMPLEXES BORDERLINE ECG PREVIOUS TRACING : 01/21/2017 12.27 Since the previous tracing, no significant change noted DOCTOR: Jewel Wilson Interpretating Date/Time 01/12/2018 12:23:30
--- NOTE | 2018-01-12 14:23 | HHI.PR ---
Subjective Remarks Patient is a 67-year-old female. History of lung cancer. Presents with having right sided abdominal pain with some nausea and vomiting. Has been unable to tolerate oral intake yesterday. Patient denies any fevers denies any chills denies any sweating denies any dysuria urgency or frequency. Denies any recent antibiotics. Denies any contact with anyone sick. Denies any strange food intake. Denies any urinary symptoms. States she has not had a bowel movement since yesterday 01-12 STILL HAVING ABDOMINAL PAIN- TO HAVE GI STUDIES LATER TODAY Patient continues to have abdominal pain Await GI studies later today Did some prepping for Having some nausea and vomiting Objective Vitals Vital Signs Date Time Temp Pulse Resp B/P (MAP) Pulse Ox O2 Delivery O2 Flow Rate FiO2 01/12/18 12:10 97.7 86 18 137/64 (88) 90 01/12/18 08:33 98.1 102 20 144/69 (94) 90 01/12/18 05:57 16 01/12/18 05:45 97.8 90 16 119/66 (83) 90 01/12/18 02:57 98.4 98 18 136/66 (89) 94 01/11/18 20:29 98.2 105 16 165/81 (109) 92 01/11/18 18:45 98.1 96 16 125/68 (87) 98 01/11/18 18:20 01/11/18 18:00 96 16 119/69 (86) 97 Room Air 01/11/18 16:00 96 16 108/53 (71) 97 Room Air I/O 01/11/18 01/11/18 01/11/18 01/12/18 01/12/18 01/12/18 07:00 15:00 23:00 07:00 15:00 23:00 Intake Total 3000 ml Balance 3000 ml Intake IV Total 3000 ml Result Diagram: 01/11/18 0020 01/11/18 0020 Other Results Laboratory Tests Test 01/11/18 00:20 01/11/18 00:24 White Blood Count 12.1 TH/MM3 Red Blood Count 4.05 MIL/MM3 Hemoglobin 12.0 GM/DL Hematocrit 36.1 % Mean Corpuscular Volume 89.1 FL Mean Corpuscular Hemoglobin 29.5 PG Mean Corpuscular Hemoglobin Concent 33.2 % Red Cell Distribution Width 14.4 % Platelet Count 273 TH/MM3 Mean Platelet Volume 7.3 FL Neutrophils (%) (Auto) 75.0 % Lymphocytes (%) (Auto) 16.7 % Monocytes (%) (Auto) 5.6 % Eosinophils (%) (Auto) 1.8 % Basophils (%) (Auto) 0.9 % Neutrophils # (Auto) 9.0 TH/MM3 Lymphocytes # (Auto) 2.0 TH/MM3 Monocytes # (Auto) 0.7 TH/MM3 Eosinophils # (Auto) 0.2 TH/MM3 Basophils # (Auto) 0.1 TH/MM3 CBC Comment DIFF FINAL Differential Comment Prothrombin Time 10.1 SEC Prothromb Time International Ratio 1.0 RATIO Activated Partial Thromboplast Time 22.6 SEC Blood Urea Nitrogen 10 MG/DL Creatinine 0.74 MG/DL Random Glucose 93 MG/DL Total Protein 6.7 GM/DL Albumin 3.3 GM/DL Calcium Level 8.2 MG/DL Alkaline Phosphatase 61 U/L Aspartate Amino Transf (AST/SGOT) 34 U/L Alanine Aminotransferase (ALT/SGPT) 29 U/L Total Bilirubin 0.4 MG/DL Sodium Level 140 MEQ/L Potassium Level 3.8 MEQ/L Chloride Level 108 MEQ/L Carbon Dioxide Level 24.4 MEQ/L Anion Gap 8 MEQ/L Estimat Glomerular Filtration Rate 79 ML/MIN Lactic Acid Level 0.5 mmol/L Lipase 146 U/L Urine Color YELLOW Urine Turbidity CLEAR Urine pH 6.5 Urine Specific [place] 1.010 Urine Protein TRACE mg/dL Urine Glucose (UA) NEG mg/dL Urine Ketones 10 mg/dL Urine Occult Blood SMALL Urine Nitrite NEG Urine Bilirubin NEG Urine Urobilinogen LESS THAN 2.0 MG/DL Urine Leukocyte Esterase TRACE Urine RBC 26 /hpf Urine WBC 3 /hpf Urine Squamous Epithelial Cells 3 /hpf Urine Amorphous Sediment RARE Urine Mucus FEW /lpf Microscopic Urinalysis Comment CULT NOT INDICATED Imaging Last Impressions Abdomen/Pelvis CT 01/11/18 0000 Signed Impressions: Service Date/Time: Thursday, January 11, 2018 01:04 - CONCLUSION: 1. Small amount of pelvic free fluid. 2. Normal appendix. 3. Gaseous distention of the ascending colon without obstruction. Aman Cruz MD Abdomen X-Ray 01/10/18 2345 Signed Impressions: Service Date/Time: Thursday, January 11, 2018 00:02 - CONCLUSION: Mild gaseous distention of bowel loops in right abdomen without obstruction. Round benign-appearing calcification to the left of L4 vertebral body. Aman Cruz MD Objective Remarks GENERAL: AWAKE ALERT AND ORIENTED X3 IN MODERATED DISTRESS SKIN: Warm and dry. HEAD: Atraumatic. Normocephalic. EYES: Pupils equal and round. No scleral icterus. No injection or drainage. EOMI ENT: No nasal bleeding or discharge. Mucous membranes pink and moist. TONGUE MIDLINE NECK: Trachea midline. No JVD. SUPPLE CARDIOVASCULAR: Regular rate and rhythm. S1, S2 NO S3 OR S4 NO HEAVE OR THRILL RESPIRATORY: No accessory muscle use. Clear to auscultation. Breath sounds equal bilaterally. GASTROINTESTINAL: Abdomen soft,. Hepatic and splenic margins not palpable. MILD/ MODERATE ABDOMINAL TENDERNESS- DISTENDED MUSCULOSKELETAL: Extremities without clubbing, cyanosis, or edema. No obvious deformities. NEUROLOGICAL: Awake and alert. No obvious cranial nerve deficits. Motor grossly within normal limits. Five out of 5 muscle strength in the arms and legs. Normal speech. PSYCHIATRIC: INAppropriate mood and affect; insight and judgment ABnormal. Procedures NONE Medications and IVs Current Medications Sodium Chloride (NS Flush) 2 ml UNSCH PRN IV FLUSH FLUSH AFTER USING IV ACCESS Last administered on 01/11/18at 00:50; Start 01/10/18 at 23:45; Stop 01/11/18 at 02:40; Status DC Sodium Chloride 1,000 ml @ 999 mls/hr BOLUS ONCE IV Last administered on 01/11at 00:02; Start 01/11/18 at 00:00; Stop 01/11/18 at 01:00; Status DC Ondansetron HCl (Zofran Inj) 4 mg ONCE ONCE IV PUSH Last administered on at 00:02; Start 01/11/18 at 00:00; Stop 01/11/18 at 00:01; Status DC Ondansetron HCl (Zofran Inj) 4 mg STK-MED ONCE .ROUTE ; Start 01/10/18 at 23:55 ; Stop 01/10/18 at 23:56; Status DC Iohexol (Omnipaque 350 Inj) 90 ml STK-MED ONCE IVCONTRAST Last administered on 01/11/18at 01:15; Start 01/11/18 at 01:15; Stop 01/11/18 at 01:16; Status DC Hydromorphone HCl (Dilaudid Pf Inj) 1 mg ONCE ONCE IV PUSH Last administered on 01/11/18at 02:56; Start 01/11/18 at 02:00; Stop 01/11/18 at 02:01; Status DC Sodium Chloride 1,000 ml @ 100 mls/hr Q10H IV Last administered on 01/11/18at 03:37; Start 01/11/18 at 02:27; Stop 01/11/18 at 11:13; Status DC Sodium Chloride (NS Flush) 2 ml UNSCH PRN IV FLUSH FLUSH AFTER USING IV ACCESS ; Start 01/11/18 at 02:30; Stop 01/11/18 at 11:11; Status DC Sodium Chloride (NS Flush) 2 ml BID IV FLUSH ; Start 01/11/18 at 02:30; Stop at 11:11; Status DC Ondansetron HCl (Zofran Inj) 4 mg Q6H PRN IVP NAUSEA OR VOMITING Last administered on 01/11/18at 07:57; Start 01/11/18 at 02:30; Stop 01/11/18 at 11:10 ; Status DC Naloxone HCl (Narcan Inj) 0.4 mg UNSCH PRN IV PUSH SEE LABEL COMMENTS; Start at 02:30; Stop 01/11/18 at 11:12; Status DC Hydromorphone HCl (Dilaudid Pf Inj) 1 mg Q4H PRN IV PAIN GREATER THAN 4 Last administered on 01/12/18at 03:02; Start 01/11/18 at 02:45 Prochlorperazine Edisylate (Compazine Inj) 5 mg Q4H PRN IV PUSH NAUSEA OR VOMITING; Start 01/11/18 at 02:30; Stop 01/11/18 at 11:40; Status DC Albuterol/ Ipratropium (Duoneb Neb) 1 ampule Q4HR NEB PRN NEB SOB/WHEEZING Last administered on 01/11/18at 15:10; Start 01/11/18 at 02:45; Stop 01/11/18 at 11:10; Status DC Enalaprilat (Vasotec Inj) 2.5 mg Q6H PRN IV PUSH SEE LABEL COMMENTS; Start at 02:45 Sodium Chloride 1,000 ml @ 999 mls/hr BOLUS ONCE IV Last administered on 01/11at 04:21; Start 01/11/18 at 03:45; Stop 01/11/18 at 04:45; Status DC Albuterol Sulfate (Albuterol Neb) 2.5 mg TID NEB PRN NEB SHORTNESS OF BREATH Last administered on 01/12/18at 09:53; Start 01/11/18 at 10:15 Amlodipine Besylate (Norvasc) 5 mg DAILY PO Last administered on 01/12/18at 09: 07; Start 01/11/18 at 11:00 Atorvastatin Calcium (Lipitor) 80 mg HS PO Last administered on 01/11/18at 22:01 ; Start 01/11/18 at 21:00 Cetirizine HCl (ZyrTEC) 10 mg DAILY PO Last administered on 01/12/18at 09:07; Start 01/11/18 at 12:00 Docusate Calcium (Surfak) 240 mg HS PO ; Start 01/11/18 at 21:00; Stop 01/11/18 at 21:00; Status DC Non-Formulary Medication 1 tab DAILY CHEW ; Start 01/11/18 at 10:15; Stop at 11:38; Status DC Non-Formulary Medication 500 mg DAILY PO ; Start 01/11/18 at 10:15; Stop at 11:14; Status DC Lisinopril (Prinivil) 40 mg BID PO Last administered on 01/12/18at 09:07; Start 01/11/18 at 11:30 Multivitamins/ Minerals Therapeutic (Theragran M Tab) 1 tab DAILY PO Last administered on 01/12/18at 09:07; Start 01/11/18 at 12:00 Sodium Chloride 1,000 ml @ 100 mls/hr Q10H IV Last administered on 01/12/18at 07:00; Start 01/11/18 at 11:00 Sodium Chloride (NS Flush) 2 ml UNSCH PRN IV FLUSH FLUSH AFTER USING IV ACCESS ; Start 01/11/18 at 10:15 Sodium Chloride (NS Flush) 2 ml BID IV FLUSH ; Start 01/11/18 at 21:00 Acetaminophen (Tylenol) 650 mg Q4H PRN PO TEMP > 100.4; Start 01/11/18 at 10:15 Ondansetron HCl (Zofran Inj) 4 mg Q6H PRN IVP NAUSEA OR VOMITING Last administered on 01/12/18at 08:58; Start 01/11/18 at 10:15 Metoclopramide HCl (Reglan Inj) 5 mg Q6H PRN IV PUSH NAUSEA OR VOMITING; Start 01/11/18 at 10:15 Zolpidem Tartrate (Ambien) 5 mg HS PRN PO INSOMNIA; Start 01/11/18 at 10:15 Acetaminophen (Tylenol) 650 mg Q6H PRN PO PAIN SCALE 1 TO 2; Start 01/11/18 at 10:15 Oxycodone/ Acetaminophen (Percocet 5-325 Mg) 1 tab Q6H PRN PO PAIN SCALE 3 TO 5 Last administered on 01/12/18at 09:08; Start 01/11/18 at 10:15 Oxycodone/ Acetaminophen (Percocet 10-325 Mg) 1 tab Q6H PRN PO PAIN SCALE 6 TO 10; Start 01/11/18 at 10:15 Naloxone HCl (Narcan Inj) 0.4 mg UNSCH PRN IV PUSH SEE LABEL COMMENTS; Start at 10:15 Senna/Docusate Sodium (Jana-Colace) 1 tab BID PO Last administered on at 22:01; Start 01/11/18 at 21:00 Magnesium Hydroxide (Milk Of Magnesia Liq) 30 ml Q12H PRN PO Mild constipation ; Start 01/11/18 at 10:15 Sennosides (Senokot) 17.2 mg Q12H PRN PO Moderate constipation; Start 01/11/18 at 10:15 Bisacodyl (Dulcolax Supp) 10 mg DAILY PRN RECTAL SEVERE CONSITIPATION; Start at 10:15 Lactulose (Lactulose Liq) 30 ml DAILY PRN PO SEVERE CONSITIPATION; Start at 10:15 Nicotine (Habitrol 14 Mg Patch.24 Hr) 1 patch ONCE ONCE T-DERMAL ; Start at 12:00; Stop 01/11/18 at 12:01; Status DC Nicotine (Habitrol 14 Mg Patch.24 Hr) 1 patch DAILY T-DERMAL ; Start 01/12/18 at 09:00 Miscellaneous Information 1 DAILY T-DERMAL ; Start 01/12/18 at 09:00 Magnesium Citrate (Citroma Liq) 300 ml ONCE ONCE PO Last administered on at 18:47; Start 01/11/18 at 16:00; Stop 01/11/18 at 16:01; Status DC Magnesium Citrate (Citroma Liq) 300 ml ONCE ONCE PO Last administered on at 21:08; Start 01/11/18 at 18:00; Stop 01/11/18 at 18:01; Status DC Lactated Ringer's 1,000 ml @ 30 mls/hr Q24H PRN IV SEE LABEL COMMENTS; Start at 02:15; Stop 01/15/18 at 02:14 Sodium Chloride 500 ml @ 30 mls/hr [id number] PRN IV SEE LABEL COMMENTS; Start at 02:15; Stop 01/15/18 at 02:14 Povidone Iodine (Betadine 5% Antisepsis Kit) 1 applic EDUCATION PROGRAM MANAGER PRN EACH NARE SEE LABEL COMMENTS; Start 01/12/18 at 02:15; Stop 01/15/18 at 02:14 Chlorhexidine Gluconate (Chlorhexidine 2% Cloth) 3 pack EDUCATION PROGRAM MANAGER PRN TOPICAL SEE LABEL COMMENTS; Start 01/12/18 at 02:15; Stop 01/15/18 at 02:14 A/P Assessment and Plan Abdominal pain and bloating we will consult gastroenterology to undergo studies with EGD and colonoscopy Constipation might need a colonoscopy Nausea vomiting continue on antiemetics continue on antiemetics for EGD and colonoscopy Leukocytosis a.m. labs Tobacco abuse recommend smoking cessation History of right lung resection for cancer History of hysterectomy Abdominal pain continue on pain control Discussed with patient and RN and family Discharge Planning Pending clearance by gastroenterology Barry Najera DO Jan 12, 2018 14:23
--- NOTE | 2018-01-12 17:09 | PD.PROCEDR ---
GI Procedure PROCEDURE PERFORMED EGD with biopsy followed by a colonoscopy with snare polypectomy and biopsy INDICATION FOR PROCEDURE Abdominal pain, nausea vomiting, diarrhea, abnormal CT showing distended a ascending colon PROCEDURE: The procedure, risks and benefits were discussed with Ms. Barrera and informed consent was obtained. Anesthesia sedated her with Diprivan. She was placed in the left lateral decubitus position. EGD: The Pentax videoscope was introduced through the oropharynx and advanced to the second portion of the duodenum under direct visualization. Retroflexion was performed in the stomach. FINDINGS: The esophagus there was mucosal friability in the distal esophagus with some minor oozing of blood of unclear significance possibly esophagitis this was biopsied The stomach there was patchy erythema in the antrum but no ulcerations no erosions no blood or bleeding the rest of the stomach was unremarkable antral biopsies were taken for further evaluation The duodenum this was normal random biopsies were taken for further evaluation of diarrhea Colonoscopy: The Pentax videoscope was introduced through the rectum and advanced to proximal transverse. Retroflexion was performed in the rectum. Colonic prep was good FINDINGS: I was unable to advance the scope beyond the hepatic flexure due to a twist or torsion in the colon that I was unable to undo the patient tolerated the colonic prep well and has prep 12 so I do not think there is any obstruction but certainly with the CT showing a dilated ascending and this division of possible torsion or maybe even a stricture it is unclear to me as to what is going on beyond this point there was a medium-sized sessile polyp in the transverse colon that was removed using cold snare technique otherwise colonic examination was unremarkable biopsies were taken from the proximal transverse colon and ascending colon to further evaluate for diarrhea retroflexion in the rectum was unremarkable and so his rectal examination ESTIMATED BLOOD LOSS: None SPECIMENS REMOVED: Esophageal, gastric, colon biopsies COMPLICATIONS: None IMPRESSION: Esophagitis Gastritis Colon polyp Colonic torsion or volvulus PLAN: Await biopsies Supportive care PPI Colorectal surgical evaluation Kailash Rogers MD Jan 12, 2018 17:09
[2018-01-12] MEDS: REMOVE OLD PATCH T-DERMAL SCH (17:50)
[2018-01-12] MEDS: NICOTINE 14 MG/24 HR PATCH T-DERMAL SCH (17:51)
[2018-01-12] MEDS: oxyCODONE/ACETAMINOPHEN 10 MG/325 MG TAB PO PRN (18:04)
[2018-01-12 20:44] VITALS: BP 119/73; PULSE 87; RESP 16; TEMP 98.2; O2SAT 94
[2018-01-12] MEDS ORDERED: METOPROLOL TARTRATE 25 MG TAB PO PRN (20:45)
[2018-01-12] MEDS: ATORVASTATIN 80 MG TAB PO SCH (21:00)
[2018-01-12 21:37] VITALS: PULSE 84
[2018-01-12] MEDS ORDERED: metroNIDAZOLE 500 MG INJ 100 ML IV ONE (22:34)
[2018-01-12] MEDS ORDERED: SUGAMMADEX SODIUM 200 MG/2 ML VIAL IV PUSH ONE (23:24)
[2018-01-12] MEDS: D5-NS + KCL 20 MEQ INJ 1,000 ML IV SCH (23:35)
[2018-01-12] MEDS ORDERED: Post-op Orders (for Pharmacy) XX ONE (23:45)
[2018-01-12] MEDS ORDERED: BENZOCAINE 6 MG/MENTHOL 10 MG LOZENGE BUCCAL PRN (23:45)
[2018-01-12] MEDS ORDERED: DO NOT ADM ANY ANTICOAGULANT DRUGS PRN (23:45)
[2018-01-12] MEDS ORDERED: ENALAPRILAT 2.5 MG/2 ML VIAL IV PUSH PRN (23:45)
[2018-01-12] MEDS ORDERED: NALOXONE HCL 0.4 MG/ML AMP IV PUSH PRN (23:45)
[2018-01-12] MEDS: ALVIMOPAN 12 MG CAPSULE PO SCH (23:45)
[2018-01-12] MEDS ORDERED: KETOROLAC TROMETHAMINE 30 MG/ML (IVP) VIAL IVP PRN (23:45)
[2018-01-12] MEDS ORDERED: ENALAPRILAT 1.25 MG/ML VIAL IV PUSH PRN (23:45)
[2018-01-12] MEDS ORDERED: POTASSIUM CHLOR 40 MEQ PREMIX 100 ML IV PRN (23:45)
[2018-01-12] MEDS ORDERED: MIDAZOLAM HCL 2 MG/2 ML VIAL ONE (23:47)
[2018-01-13] MEDS: MORPHINE SULFATE 30 MG/30 ML PCA IV SCH ×2 (00:50→15:11)
[2018-01-13] MEDS: metroNIDAZOLE 500 MG INJ 100 ML IV SCH ×3 (03:34→21:04)
[2018-01-13] MEDS: D5-NS + KCL 20 MEQ INJ 1,000 ML IV SCH ×2 (06:18→21:04)
[2018-01-13 07:42] LABS: HEMOGLOBIN 10.5 GM/DL (11.6-15.3); MEAN CELL VOLUME 87.2 FL (80.0-100.0); MEAN CORPUSCULAR HEMOGLOBIN 29.4 PG (27.0-34.0); MEAN CORPUSCULAR HGB CONC 33.7 % (32.0-36.0); MEAN PLATELET VOLUME 7.4 FL (7.0-11.0); PLATELET COUNT 231 TH/MM3 (150-450); RED BLOOD COUNT 3.56 MIL/MM3 (4.00-5.30); RED CELL DISTRIBUTION WIDTH 14.2 % (11.6-17.2)
[2018-01-13] MEDS: CETIRIZINE HCL 10 MG TAB PO SCH (08:15)
[2018-01-13] MEDS: METOCLOPRAMIDE HCL 10 MG/2 ML VIAL IVS SCH ×2 (08:15→21:05)
[2018-01-13] MEDS: SODIUM CHLORIDE 0.9% FLUSH 10 ML FLUSH IV FLUSH SCH ×2 (08:15→21:00)
[2018-01-13] MEDS: ALVIMOPAN 12 MG CAPSULE PO SCH ×2 (08:15→21:05)
[2018-01-13] MEDS: LISINOPRIL 20 MG TAB PO SCH ×2 (08:20→21:00)
[2018-01-13] MEDS: amLODIPine BESYLATE 5 MG TAB PO SCH (08:20)
[2018-01-13] MEDS: NICOTINE 14 MG/24 HR PATCH T-DERMAL SCH (08:20)
[2018-01-13] MEDS: REMOVE OLD PATCH T-DERMAL SCH (08:21)
[2018-01-13 08:43] LABS: BANDS 10 % (0-6); LYMPHOCYTES 2 % (9-44); MONOCYTES 1 % (0-8); NEUTROPHIL # MANUAL DIFF 15.5 TH/MM3 (1.8-7.7); POLYS (SEG NEUTROPHILS) 87 % (16-70)
[2018-01-13 08:44] LABS: ACANTHOCYTES OCC (NORMAL); OVALOCYTES 1+ (NORMAL)
[2018-01-13 08:51] LABS: ALBUMIN 2.1 GM/DL (3.4-5.0); BICARBONATE 31.1 MEQ/L (21.0-32.0); CALCIUM 6.9 MG/DL (8.5-10.1); CALCIUM-PROTEIN CORRECTED 8.2 MG/DL (8.5-10.1); CREATININE 0.67 MG/DL (0.50-1.00); MAGNESIUM 2.9 MG/DL (1.5-2.5); PHOSPHORUS 1.7 MG/DL (2.5-4.9); TOTAL BILIRUBIN ADULT 0.2 MG/DL (0.2-1.0); TOTAL PROTEIN 4.7 GM/DL (6.4-8.2)
[2018-01-13] MEDS: MULTIVITAMINS/MINERALS THERAPEUTIC TAB PO SCH (09:00)
[2018-01-13] MEDS: POTASSIUM CHLOR 20 MEQ PREMIX 100 ML IV PRN (10:40)
[2018-01-13] MEDS ORDERED: DIMETHICONE/OXYBENZONE/PADMIATE LIP BALM 4.25 GM TOPICAL ONE (11:42)
--- NOTE | 2018-01-13 12:31 | HHI.PR ---
Subjective Remarks C/R Surg POD #1 afebrile, VSS UO good no SOB Objective - Vital Signs Date Time Temp Pulse Resp B/P (MAP) Pulse Ox O2 Delivery O2 Flow Rate FiO2 01/13/18 11:30 84 18 101/58 (72) 96 Nasal Cannula 2 01/13/18 07:30 97.6 Result Diagram: 01/13/18 0727 01/13/18 0727 Objective Remarks PE alert Abd - soft, flat, wound dry A/P Assessment and Plan Imp: stable post-op OOB decr IVF Tx to floor Beny Zarate MD Jan 13, 2018 12:31
--- NOTE | 2018-01-13 12:38 | HHI.GIFU ---
Subjective Remarks Pt in bed in NAD. She admits minimal abd pain- she feels better than when she came in. s/p ex lap and right colectomy by CRS. (Patrizia Jean Baptiste) Objective Vitals I&O Vital Signs Date Time Temp Pulse Resp B/P (MAP) Pulse Ox O2 Delivery O2 Flow Rate FiO2 01/13/18 11:30 84 18 101/58 (72) 96 Nasal Cannula 2 01/13/18 10:00 80 18 96/55 (69) 96 Nasal Cannula 2 01/13/18 07:30 97.6 88 18 101/57 (72) 98 Nasal Cannula 2 01/13/18 06:00 98.2 78 18 109/54 (72) 99 Nasal Cannula 2 01/13/18 05:00 81 21 111/58 (75) 99 Nasal Cannula 2 01/13/18 04:00 97.8 84 16 110/56 (74) 98 Nasal Cannula 2 01/13/18 03:00 86 20 117/58 (77) 99 Nasal Cannula 2 01/13/18 02:00 89 20 119/60 (79) 99 Nasal Cannula 2 01/13/18 01:30 88 12 133/65 (87) 95 Nasal Cannula 2 01/13/18 01:15 82 12 123/64 (83) 95 Nasal Cannula 2 01/13/18 01:00 92 20 114/66 (82) 94 Nasal Cannula 2 01/13/18 00:50 26 01/13/18 00:45 84 16 148/70 (96) 100 Nasal Cannula 4 01/13/18 00:30 86 15 141/69 (93) 100 Nasal Cannula 4 01/13/18 00:15 87 20 142/69 (93) 100 Nasal Cannula 4 01/13/18 00:00 81 15 146/68 (94) 100 Nasal Cannula 4 01/12/18 23:45 84 19 151/73 (99) 100 Nasal Cannula 4 01/12/18 23:39 97.6 88 19 149/74 (99) 100 Simple Mask 8 01/12/18 21:37 84 01/12/18 21:35 Room Air 01/12/18 21:35 98.2 85 17 137/74 (95) 92 01/12/18 20:44 98.2 87 16 119/73 (88) 94 01/12/18 16:55 97.0 80 18 116/77 (90) 94 I/O 01/12/18 01/12/18 01/12/18 01/13/18 01/13/18 01/13/18 07:00 15:00 23:00 07:00 15:00 23:00 Intake Total 650 ml 2024 ml Output Total 690 ml 25 ml Balance 650 ml 1334 ml -25 ml Intake Oral 100 ml IV Total 924 ml Other 650 ml 1000 ml Output Urine Total 490 ml Gastric Drainage Total 150 ml 25 ml Estimated Blood Loss 50 ml Laboratory Laboratory Tests Test 01/13/18 07:27 White Blood Count 16.0 Red Blood Count 3.56 Hemoglobin 10.5 Hematocrit 31.0 Mean Corpuscular Volume 87.2 Mean Corpuscular Hemoglobin 29.4 Mean Corpuscular Hemoglobin Concent 33.7 Red Cell Distribution Width 14.2 Platelet Count 231 Mean Platelet Volume 7.4 CBC Comment AUTO DIFF Differential Total Cells Counted 100 Neutrophils % (Manual) 87 Band Neutrophils % 10 Lymphocytes % 2 Monocytes % 1 Neutrophils # (Manual) 15.5 Differential Comment FINAL DIFF MANUAL Platelet Estimate NORMAL Platelet Morphology Comment NORMAL Ovalocytes 1+ Acanthocytes OCC Blood Urea Nitrogen 16 Creatinine 0.67 Random Glucose 226 Total Protein 4.7 Albumin 2.1 Calcium Level 6.9 Phosphorus Level 1.7 Magnesium Level 2.9 Alkaline Phosphatase 43 Aspartate Amino Transf (AST/SGOT) 25 Alanine Aminotransferase (ALT/SGPT) 18 Total Bilirubin 0.2 Sodium Level 145 Potassium Level 3.4 Chloride Level 110 Carbon Dioxide Level 31.1 Anion Gap 4 Estimat Glomerular Filtration Rate 88 Protein Corrected Calcium 8.2 Imaging Last Impressions Abdomen/Pelvis CT 01/11/18 0000 Signed Impressions: Service Date/Time: Thursday, January 11, 2018 01:04 - CONCLUSION: 1. Small amount of pelvic free fluid. 2. Normal appendix. 3. Gaseous distention of the ascending colon without obstruction. Aman Cruz MD Abdomen X-Ray 01/10/18 2218 Signed Impressions: Service Date/Time: Thursday, January 11, 2018 00:02 - CONCLUSION: Mild gaseous distention of bowel loops in right abdomen without obstruction. Round benign-appearing calcification to the left of L4 vertebral body. Aman Cruz MD Physical Exam HEENT: PERRL; normocephalic; atraumatic; no jaundice. CHEST: CTA CARDIAC: RRR ABDOMEN: Soft, nondistended, mild diffuse TTP, BS+, abd binder NGT EXTREMITIES: No clubbing, cyanosis, or edema. SKIN: Normal; no rash; no jaundice. UNDERCAR SPECIALIST: No focal deficits; alert and oriented times three. (Patrizia Jean Baptiste) Assessment and Plan Plan Assessment: - Reports of abdominal pain- states starts in low mid abdomen radiates to umbilicus and right side of abdomen. Reports diarrhea yesterday morning which stopped then she felt she needed to have a BM so she took a stool softener with no BM and no relief of symptoms. States history of "kink in her intestine" resolved on its own, denies surgery. Ct abdomen and pelvis W IV contrast --> Small amount of pelvic free fluid. Normal appendix, Gaseous distention of the ascending colon without obstruction. Last colonoscopy 5 years ago, states polyps, due for repeat exam next month - Nausea and vomiting- one isolated episode- yesterday, now just dry heaving, has not eaten. Denies hematemesis and coffee ground emesis. Has never had EGD. Of note, reports taking Ibuprofen frequently for back pain. 01/13/18 s/p EGD and colonoscopy 01/12 found esohpagitis, gastritis, colon polyps , colon torsion vs volvulus. CRS consulted and she is s/p ex lap and right colectomy. she feels better than when she came in. Plan: - await bx - diet and further mgmt per CRS - f/u with GI after D/C - supportive care Pt has been seen and examined by myself and Dr. Rogers and this note is written on his behalf (Patrizia Jean Baptiste) Physician Comments Patient seen and examined Agree with above Continue with current supportive care Monitor labs Case discussed with Dr. 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
[2018-01-13] MEDS: RESP: ALBUTEROL 2.5 MG/3 ML NEB (PRN) NEB (12:40)
[2018-01-13 13:13] VITALS: BP 93/51; PULSE 84; RESP 18; TEMP 97.2; O2SAT 93
--- NOTE | 2018-01-13 13:13 | MB ---
cc: Beny Zarate MD, Andrew H MD DATE: 01/12/2018 REASON FOR CONSULTATION: Abdominal pain, colonic distention. HISTORY OF PRESENT ILLNESS: Ms. Fink is a 67-year-old female who has a history of bilateral lung cancer. She has been known to have floppy bowel in the past. Recently, she has been having more right-sided abdominal pain with distention of the abdomen associated with nausea and vomiting. This has been over the last 24-48 hours. She has had very little, if any, oral intake and has been having some dry heaves and emesis. Denies any fever. No rectal bleeding. No diarrhea. Denies any significant hemorrhoidal prolapse and no melena. Weight has gone down about 10 pounds in the last week. The patient was admitted several days ago with evaluation showing distention of the right colon and terminal ileum possibly consistent with a cecal volvulus. Dr. Rogers did a partial colonoscopy today getting through the transverse colon, but not being able to intubate the right colon due to a twist consistent with a volvulus. Please see the admitting history and physical and consultation for past medical and surgical history. PERTINENT PHYSICAL: GENERAL: This is a very pleasant, thin female with signs of chronic illness. HEENT: Remarkable for somewhat pale, dry membranes. Nonicteric sclerae. NECK: Supple without gross adenopathy. CHEST: Relatively diminished with crackles in the bases. HEART: Had a regular rhythm, slight tachycardia. ABDOMEN: Grossly distended fairly tight, tender to touch. No rebound or guarding or any masses appreciated. Anal inspection revealed benign canal. Digital exam revealed good tone. No masses or tenderness and no blood on the finger. EXTREMITIES: No cyanosis or clubbing and minimal 1+ pedal edema. LABORATORY STUDIES: All reviewed. CT scan did show unusual gas pattern with distention of the right colon up above the liver and displacing the liver to the left side. A fair amount of small bowel dilatation was also present. No free air and no significant ascites. 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 CT is somewhat difficult to understand due to the large swelling in the right colon without an obvious twist or volvulus trigger point. I reviewed with the patient with her severe pain and abdominal distention, recommended bringing her to the operating room as soon as possible for definitive exploratory laparotomy and either untwisting of the bowel or possibly resection of the involved segment. The risks, benefits, and alternatives were discussed. She understands that there is a possibility that she may end up having a colostomy or ileostomy. MD RANDY Reddy/LUIS , 12:48 PM , 01:11 PM
[2018-01-13 16:33] VITALS: BP 120/59; PULSE 84; RESP 18; TEMP 97.8; O2SAT 97
--- NOTE | 2018-01-13 17:52 | HHI.PR ---
Subjective Remarks Written by Jeanna Pineda, acting as scribe for Dr. Khanna on 01/13/18 at 17: 34. Follow up on patient with cecal volvulus s/p laparotomy. Patient seen and examined. She complains of chronic shortness of breath secondary to hx of lobectomies who has not been on her inhaler medications. She follows with Dr. Kat Moon as an outpatient. She reports postoperative pain. She is not moving her bowels or passing gas. She is afebrile. VSS. Objective Vitals Vital Signs Date Time Temp Pulse Resp B/P (MAP) Pulse Ox O2 Delivery O2 Flow Rate FiO2 01/13/18 16:33 97.8 84 18 120/59 (79) 97 01/13/18 15:11 14 01/13/18 13:13 97.2 84 18 93/51 (65) 93 01/13/18 11:30 84 18 101/58 (72) 96 Nasal Cannula 2 01/13/18 10:00 80 18 96/55 (69) 96 Nasal Cannula 2 01/13/18 07:30 97.6 88 18 101/57 (72) 98 Nasal Cannula 2 01/13/18 06:00 98.2 78 18 109/54 (72) 99 Nasal Cannula 2 01/13/18 05:00 81 21 111/58 (75) 99 Nasal Cannula 2 01/13/18 04:00 97.8 84 16 110/56 (74) 98 Nasal Cannula 2 01/13/18 03:00 86 20 117/58 (77) 99 Nasal Cannula 2 01/13/18 02:00 89 20 119/60 (79) 99 Nasal Cannula 2 01/13/18 01:30 88 12 133/65 (87) 95 Nasal Cannula 2 01/13/18 01:15 82 12 123/64 (83) 95 Nasal Cannula 2 01/13/18 01:00 92 20 114/66 (82) 94 Nasal Cannula 2 01/13/18 00:50 26 01/13/18 00:45 84 16 148/70 (96) 100 Nasal Cannula 4 01/13/18 00:30 86 15 141/69 (93) 100 Nasal Cannula 4 01/13/18 00:15 87 20 142/69 (93) 100 Nasal Cannula 4 01/13/18 00:00 81 15 146/68 (94) 100 Nasal Cannula 4 01/12/18 23:45 84 19 151/73 (99) 100 Nasal Cannula 4 01/12/18 23:39 97.6 88 19 149/74 (99) 100 Simple Mask 8 01/12/18 21:37 84 01/12/18 21:35 Room Air 01/12/18 21:35 98.2 85 17 137/74 (95) 92 01/12/18 20:44 98.2 87 16 119/73 (88) 94 I/O 01/12/18 01/12/18 01/12/18 01/13/18 01/13/18 01/13/18 07:00 15:00 23:00 07:00 15:00 23:00 Intake Total 650 ml 2024 ml Output Total 690 ml 25 ml Balance 650 ml 1334 ml -25 ml Intake Oral 100 ml IV Total 924 ml Other 650 ml 1000 ml Output Urine Total 490 ml Gastric Drainage Total 150 ml 25 ml Estimated Blood Loss 50 ml Result Diagram: 01/13/18 0727 01/13/18 0727 Imaging Last Impressions Abdomen/Pelvis CT 01/11/18 0000 Signed Impressions: Service Date/Time: Thursday, January 11, 2018 01:04 - CONCLUSION: 1. Small amount of pelvic free fluid. 2. Normal appendix. 3. Gaseous distention of the ascending colon without obstruction. Aman Cruz MD Abdomen X-Ray 01/10/18 2345 Signed Impressions: Service Date/Time: Thursday, January 11, 2018 00:02 - CONCLUSION: Mild gaseous distention of bowel loops in right abdomen without obstruction. Round benign-appearing calcification to the left of L4 vertebral body. Aman Cruz MD Objective Remarks GENERAL: Thin female, INAD. Awake and alert. at bedside. SKIN: Warm and dry. HEAD: Atraumatic. Normocephalic. EYES: Pupils equal and round. No scleral icterus. No injection or drainage. ENT: No nasal bleeding or discharge. Mucous membranes pink and moist. NG tube right nare. NECK: Trachea midline. CARDIOVASCULAR: Regular rate and rhythm. RESPIRATORY: No accessory muscle use. Clear to auscultation. Breath sounds equal bilaterally. GASTROINTESTINAL: Abdomen postop binder in place, hypoactive BS. MUSCULOSKELETAL: Extremities without clubbing, cyanosis, or edema. No obvious deformities. NEUROLOGICAL: Awake and alert. No obvious cranial nerve deficits. Motor grossly within normal limits. Normal speech. PSYCHIATRIC: Appropriate mood and affect; insight and judgment normal. Procedures s/p exp laparotomy and right colectomy by Dr. Zarate Medications and IVs Current Medications Medications (Trade) Dose Ordered Sig/Melvin Route Start Time Stop Time Status Last Admin (Dilaudid Pf Inj) 1 mg Q4H PRN IV 01/11/18 02:45 01/12/18 03:02 (Albuterol Neb) 2.5 mg TID NEB PRN NEB 01/11/18 10:15 01/13/18 12:40 (Norvasc) 5 mg DAILY PO 01/11/18 11:00 01/12/18 09:07 (Lipitor) 80 mg HS PO 01/11/18 21:00 01/11/18 22:01 (ZyrTEC) 10 mg DAILY PO 01/11/18 12:00 01/13/18 08:15 (Prinivil) 40 mg BID PO 01/11/18 11:30 01/12/18 09:07 (Theragran M Tab) 1 tab DAILY PO 01/11/18 12:00 01/12/18 09:07 (NS Flush) 2 ml UNSCH PRN IV FLUSH 01/11/18 10:15 (NS Flush) 2 ml BID IV FLUSH 01/11/18 21:00 01/13/18 08:15 (Tylenol) 650 mg Q4H PRN PO 01/11/18 10:15 (Zofran Inj) 4 mg Q6H PRN IVP 01/11/18 10:15 01/12/18 08:58 (Reglan Inj) 5 mg Q6H PRN IV PUSH 01/11/18 10:15 (Ambien) 5 mg HS PRN PO 01/11/18 10:15 (Percocet 5-325 Mg) 1 tab Q6H PRN PO 01/11/18 10:15 01/12/18 09:08 (Percocet 10-325 Mg) 1 tab Q6H PRN PO 01/11/18 10:15 01/12/18 18:04 (Habitrol 14 Mg Patch.24 Hr) 1 patch DAILY T-DERMAL 01/12/18 09:00 Miscellaneous Information 1 DAILY T-DERMAL 01/12/18 09:00 (Betadine 5% Antisepsis Kit) 1 applic METAL FABRICATOR PRN EACH NARE 01/12/18 20:45 01/15/18 20:44 (Chlorhexidine 2% Cloth) 3 pack METAL FABRICATOR PRN TOPICAL 01/12/18 20:45 01/15/18 20:44 Potassium Chloride/Dextrose/ Sod Cl 1,000 ml @ 100 mls/hr Q10H IV 01/12/18 23:35 01/13/18 06:18 (Toradol Inj) 30 mg Q6H PRN IVP 01/12/18 23:45 01/15/18 23:44 (Entereg) 12 mg BID PO 01/12/18 23:45 01/19/18 09:01 01/13/18 08:15 (Reglan Inj) 10 mg Q12HR IVS 01/13/18 09:00 01/13/18 08:15 (Vasotec Inj) 1.25 mg Q4H PRN IV PUSH 01/12/18 23:45 (Vasotec Inj) 2.5 mg Q6H PRN IV PUSH 01/12/18 23:45 (Chloraseptic Lindsay) 1 lozenge UNSCH PRN BUCCAL 01/12/18 23:45 Potassium Chloride 100 ml @ 50 mls/hr UNSCH PRN IV 01/12/18 23:45 01/13/18 10:40 Potassium Chloride 100 ml @ 25 mls/hr UNSCH PRN IV 01/12/18 23:45 (Narcan Inj) 0.4 mg UNSCH PRN IV PUSH 01/12/18 23:45 (Morphine 1 Mg/ ml BRIDGE TENDER) 30 mg UNSCH IV 01/12/18 23:45 01/13/18 15:11 BRIDGE TENDER Dosage Infused (Pha) 1 Q8HR .XX 01/12/18 23:45 Miscellaneous Information ALL NURSING DEPARTME... 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 Zarate -pain management per surgery -PT eval/tx -continue NGT per surgery team -NPO. Continue on IVF. -follow up on path results //Leukocytosis -patient is afebrile -continue on IV abx per surgery team - Ancef and Flagyl IV -monitor white count //Anemia secondary to anemia of acute blood loss/postop -no active bleeding -continue to monitor CBC //Hx of lung cancer s/p resection -resume home bronchodilator therapy - patients to bring in from home -scheduled Duonebs -IS at bedside, encourage hourly use. Acapella -monitor respiratory status -supplemental oxygen to maintain O2 sats >92% //Hypokalemia -on IV replacement -repeat BMP in am //Hyperglycemia -obtain A1c -accuchek and ISS //DVT prophylaxis -Bilateral scd/noman hose -avoidance of chemical prophylaxis periprocedural Discharge Planning Pending postop recovery, CRS clearance for discharge This note was transcribed by heather Pineda. I, Dr. Aidan Khanna personally performed the history, physical exam, and medical decision making; and confirmed the accuracy of the information in the transcribed note. Authenticated by Dr. Aidan Khanna on 01/14/18 at 07:31. Jeanna Pineda Jan 13, 2018 17:52 Aidan Khanna MD Jan 14, 2018 07:27
[2018-01-13 20:00] VITALS: BP 123/73; PULSE 84; RESP 16; TEMP 98.4; O2SAT 98
[2018-01-13 20:17] VITALS: O2SAT 96
[2018-01-13] MEDS: RESP: ALBUTEROL 2.5 MG/IPRATROPIUM 0.5 MG NEB (SCH) NEB (20:17)
[2018-01-13] MEDS: ATORVASTATIN 80 MG TAB PO SCH (21:00)
[2018-01-13] MEDS: PCA - TOTAL MG MORPHINE DELIVERED PER SHIFT SCH (21:15)
[2018-01-14] VITALS (9 sets, daily range): BP systolic 121–146; BP diastolic 67–72; PULSE 86–97; RESP 16–22; TEMP 97.8–98.6; O2SAT 88–98
[2018-01-14] MEDS: metroNIDAZOLE 500 MG INJ 100 ML IV SCH ×3 (04:11→20:30)
[2018-01-14] MEDS: PCA - TOTAL MG MORPHINE DELIVERED PER SHIFT SCH ×3 (05:07→20:33)
[2018-01-14] MEDS: MORPHINE SULFATE 30 MG/30 ML PCA IV SCH (07:55)
[2018-01-14] MEDS: NICOTINE 14 MG/24 HR PATCH T-DERMAL SCH (07:57)
[2018-01-14] MEDS: D5-NS + KCL 20 MEQ INJ 1,000 ML IV SCH ×3 (07:57→16:28)
[2018-01-14] MEDS: REMOVE OLD PATCH T-DERMAL SCH (07:57)
[2018-01-14] MEDS: LISINOPRIL 20 MG TAB PO SCH ×2 (07:58→20:31)
[2018-01-14] MEDS: ALVIMOPAN 12 MG CAPSULE PO SCH ×2 (08:00→20:30)
[2018-01-14] MEDS: METOCLOPRAMIDE HCL 10 MG/2 ML VIAL IVS SCH ×2 (08:02→20:31)
[2018-01-14] MEDS: SODIUM CHLORIDE 0.9% FLUSH 10 ML FLUSH IV FLUSH SCH ×2 (08:02→20:32)
[2018-01-14] MEDS: amLODIPine BESYLATE 5 MG TAB PO SCH (08:02)
[2018-01-14] MEDS: MULTIVITAMINS/MINERALS THERAPEUTIC TAB PO SCH (08:03)
[2018-01-14] MEDS: CETIRIZINE HCL 10 MG TAB PO SCH (08:03)
[2018-01-14 08:21] LABS: AUTOMATED NEUTROPHIL # 13.9 TH/MM3 (1.8-7.7); BASOPHIL # 0.1 TH/MM3 (0-0.2); BASOPHIL % 0.4 % (0.0-2.0); HEMATOCRIT 30.6 % (35.0-46.0); HEMOGLOBIN 10.3 GM/DL (11.6-15.3); LYMPH % 10.6 % (9.0-44.0); LYMPHOCYTE # 1.8 TH/MM3 (1.0-4.8); MEAN CELL VOLUME 88.7 FL (80.0-100.0); MEAN CORPUSCULAR HEMOGLOBIN 29.9 PG (27.0-34.0); MEAN CORPUSCULAR HGB CONC 33.7 % (32.0-36.0); MEAN PLATELET VOLUME 7.6 FL (7.0-11.0); MONO % 5.6 % (0.0-8.0); MONOCYTE # 0.9 TH/MM3 (0-0.9); NEUT % 83.4 % (16.0-70.0); PLATELET COUNT 228 TH/MM3 (150-450); RED BLOOD COUNT 3.45 MIL/MM3 (4.00-5.30); RED CELL DISTRIBUTION WIDTH 14.5 % (11.6-17.2); WHITE BLOOD COUNT 16.7 TH/MM3 (4.0-11.0)
[2018-01-14] MEDS: RESP: ALBUTEROL 2.5 MG/IPRATROPIUM 0.5 MG NEB (SCH) NEB ×4 (08:32→21:01)
--- NOTE | 2018-01-14 08:46 | HHI.PR ---
Subjective Remarks This is a pleasant 67 y/o Female, history of Lung cancer, brought in to ER with Abdominal pain nausea and vomit, followed by GI specialist, as we know she has COPD, Hypertension, Right Upper lobe squamous cell carcinoma and left upper lung adenocarcinoma, S/P left upper lobectomy and mediastinal lymph node dissection. Admits to occasion ETOH. Smokes 10 cigarettes a day. Denies illicit drug use. Also admits to taking a lot of Ibuprofen recently for back pain. 01/13/18 s/p EGD and colonoscopy 01/12 found esophagitis, gastritis, colon polyps , colon torsion vs volvulus. CRS consulted and she is s/p ex lap and right colectomy. Dr. 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 Status post laparotomy and Right colectomy by Dr. Zarate. 01/14: Seen in her bedroom in the presence of her Mr. rios, she is been coughing will continue Bronchodilator Mucolytic and incentive spirometry, No nausea, vomit or diarrhea. Objective Vital Signs Date Time Temp Pulse Resp B/P (MAP) Pulse Ox O2 Delivery O2 Flow Rate FiO2 01/14/18 08:33 96 Nasal Cannula 3.00 01/14/18 07:55 12 01/14/18 05:07 18 01/14/18 04:00 98.4 86 18 127/68 (87) 94 01/14/18 00:00 97.8 93 16 146/72 (96) 98 01/13/18 21:15 18 01/13/18 20:17 96 Nasal Cannula 2.00 01/13/18 20:00 98.4 84 16 123/73 (90) 98 01/13/18 16:33 97.8 84 18 120/59 (79) 97 01/13/18 15:11 14 01/13/18 13:13 97.2 84 18 93/51 (65) 93 01/13/18 11:30 84 18 101/58 (72) 96 Nasal Cannula 2 01/13/18 10:00 80 18 96/55 (69) 96 Nasal Cannula 2 I/O 01/13/18 01/13/18 01/13/18 01/14/18 01/14/18 01/14/18 07:00 15:00 23:00 07:00 15:00 23:00 Intake Total 2024 ml 1100 ml 200 ml Output Total 690 ml 25 ml 400 ml 1200 ml Balance 1334 ml -25 ml 700 ml -1000 ml Intake Oral 100 ml 0 ml IV Total 924 ml 1100 ml 200 ml Other 1000 ml Output Urine Total 490 ml 400 ml 1200 ml Gastric Drainage Total 150 ml 25 ml 0 ml Estimated Blood Loss 50 ml # Bowel Movements 0 Result Diagram: 01/14/18 0725 01/13/18 0727 Imaging Last Impressions Abdomen/Pelvis CT 01/11/18 0000 Signed Impressions: Service Date/Time: Thursday, January 11, 2018 01:04 - CONCLUSION: 1. Small amount of pelvic free fluid. 2. Normal appendix. 3. Gaseous distention of the ascending colon without obstruction. Aman Cruz MD Abdomen X-Ray 01/10/18 [id number] Signed Impressions: Service Date/Time: Thursday, January 11, 2018 00:02 - CONCLUSION: Mild gaseous distention of bowel loops in right abdomen without obstruction. Round benign-appearing calcification to the left of L4 vertebral body. Aman Cruz MD Procedures EGD s/p exp laparotomy and right colectomy by Dr. Zarate Other Results Laboratory Tests Test 01/11/18 00:20 01/11/18 00:24 01/13/18 07:27 01/14/18 07:25 Prothrombin Time 10.1 SEC Prothromb Time International Ratio 1.0 RATIO Activated Partial Thromboplast Time 22.6 SEC Lactic Acid Level 0.5 mmol/L Lipase 146 U/L Urine Color YELLOW Urine Turbidity CLEAR Urine pH 6.5 Urine Specific [place] 1.010 Urine Protein TRACE mg/dL Urine Glucose (UA) NEG mg/dL Urine Ketones 10 mg/dL Urine Occult Blood SMALL Urine Nitrite NEG Urine Bilirubin NEG Urine Urobilinogen LESS THAN 2.0 MG/DL Urine Leukocyte Esterase TRACE Urine RBC 26 /hpf Urine WBC 3 /hpf Urine Squamous Epithelial Cells 3 /hpf Urine Amorphous Sediment RARE Urine Mucus FEW /lpf Microscopic Urinalysis Comment CULT NOT INDICATED Differential Total Cells Counted 100 Neutrophils % (Manual) 87 % Band Neutrophils % 10 % Lymphocytes % 2 % Monocytes % 1 % Neutrophils # (Manual) 15.5 TH/MM3 Platelet Estimate NORMAL Platelet Morphology Comment NORMAL Ovalocytes 1+ Acanthocytes OCC Estimat Glomerular Filtration Rate 88 ML/MIN Protein Corrected Calcium 8.2 MG/DL Blood Urea Nitrogen 16 MG/DL Creatinine 0.67 MG/DL Random Glucose 226 MG/DL Total Protein 4.7 GM/DL Albumin 2.1 GM/DL Calcium Level 6.9 MG/DL Phosphorus Level 1.7 MG/DL Magnesium Level 2.9 MG/DL Alkaline Phosphatase 43 U/L Aspartate Amino Transf (AST/SGOT) 25 U/L Alanine Aminotransferase (ALT/SGPT) 18 U/L Total Bilirubin 0.2 MG/DL Sodium Level 145 MEQ/L Potassium Level 3.4 MEQ/L Chloride Level 110 MEQ/L Carbon Dioxide Level 31.1 MEQ/L White Blood Count 16.7 TH/MM3 Red Blood Count 3.45 MIL/MM3 Hemoglobin 10.3 GM/DL Hematocrit 30.6 % Mean Corpuscular Volume 88.7 FL Mean Corpuscular Hemoglobin 29.9 PG Mean Corpuscular Hemoglobin Concent 33.7 % Red Cell Distribution Width 14.5 % Platelet Count 228 TH/MM3 Mean Platelet Volume 7.6 FL Neutrophils (%) (Auto) 83.4 % Lymphocytes (%) (Auto) 10.6 % Monocytes (%) (Auto) 5.6 % Eosinophils (%) (Auto) 0.0 % Basophils (%) (Auto) 0.4 % Neutrophils # (Auto) 13.9 TH/MM3 Lymphocytes # (Auto) 1.8 TH/MM3 Monocytes # (Auto) 0.9 TH/MM3 Eosinophils # (Auto) 0.0 TH/MM3 Basophils # (Auto) 0.1 TH/MM3 CBC Comment DIFF FINAL Differential Comment Objective Remarks GENERAL: No acute distress. SKIN: Warm and dry. HEAD: Atraumatic. Normocephalic. EYES: Pupils equal and round. No scleral icterus. No injection or drainage. ENT: No nasal bleeding or discharge. Mucous membranes pink and moist. NG tube right nare. NECK: Trachea midline. CARDIOVASCULAR: Regular rate and rhythm. RESPIRATORY: No accessory muscle use. Clear to auscultation. Breath sounds equal bilaterally. GASTROINTESTINAL: Abdomen postop binder in place, hypoactive BS. MUSCULOSKELETAL: Extremities without clubbing, cyanosis, or edema. No obvious deformities. NEUROLOGICAL: Awake and alert. No obvious cranial nerve deficits. Motor grossly within normal limits. Normal speech. PSYCHIATRIC: Appropriate mood and affect; insight and judgment normal. Medications and IVs Current Medications Medications (Trade) Dose Ordered Sig/Melvin Route Start Time Stop Time Status Last Admin (Dilaudid Pf Inj) 1 mg Q4H PRN IV 01/11/18 02:45 01/12/18 03:02 (Albuterol Neb) 2.5 mg TID NEB PRN NEB 01/11/18 10:15 01/13/18 12:40 (Norvasc) 5 mg DAILY PO 01/11/18 11:00 01/14/18 08:02 (Lipitor) 80 mg HS PO 01/11/18 21:00 01/11/18 22:01 (ZyrTEC) 10 mg DAILY PO 01/11/18 12:00 01/14/18 08:03 (Prinivil) 40 mg BID PO 01/11/18 11:30 01/14/18 07:58 (Theragran M Tab) 1 tab DAILY PO 01/11/18 12:00 01/14/18 08:03 (NS Flush) 2 ml UNSCH PRN IV FLUSH 01/11/18 10:15 (NS Flush) 2 ml BID IV FLUSH 01/11/18 21:00 01/14/18 08:02 (Tylenol) 650 mg Q4H PRN PO 01/11/18 10:15 (Zofran Inj) 4 mg Q6H PRN IVP 01/11/18 10:15 01/12/18 08:58 (Reglan Inj) 5 mg Q6H PRN IV PUSH 01/11/18 10:15 (Ambien) 5 mg HS PRN PO 01/11/18 10:15 (Percocet 5-325 Mg) 1 tab Q6H PRN PO 01/11/18 10:15 01/12/18 09:08 (Percocet 10-325 Mg) 1 tab Q6H PRN PO 01/11/18 10:15 01/12/18 18:04 (Habitrol 14 Mg Patch.24 Hr) 1 patch DAILY T-DERMAL 01/12/18 09:00 Miscellaneous Information 1 DAILY T-DERMAL 01/12/18 09:00 (Betadine 5% Antisepsis Kit) 1 applic AGENT BASED MODELER PRN EACH NARE 01/12/18 20:45 01/15/18 20:44 (Chlorhexidine 2% Cloth) 3 pack AGENT BASED MODELER PRN TOPICAL 01/12/18 20:45 01/15/18 20:44 Potassium Chloride/Dextrose/ Sod Cl 1,000 ml @ 100 mls/hr Q10H IV 01/12/18 23:35 01/14/18 07:57 (Toradol Inj) 30 mg Q6H PRN IVP 01/12/18 23:45 01/15/18 23:44 (Entereg) 12 mg BID PO 01/12/18 23:45 01/19/18 09:01 01/14/18 08:00 (Reglan Inj) 10 mg Q12HR IVS 01/13/18 09:00 01/14/18 08:02 (Vasotec Inj) 1.25 mg Q4H PRN IV PUSH 01/12/18 23:45 (Vasotec Inj) 2.5 mg Q6H PRN IV PUSH 01/12/18 23:45 (Chloraseptic Lindsay) 1 lozenge UNSCH PRN BUCCAL 01/12/18 23:45 Potassium Chloride 100 ml @ 50 mls/hr UNSCH PRN IV 01/12/18 23:45 01/13/18 10:40 Potassium Chloride 100 ml @ 25 mls/hr UNSCH PRN IV 01/12/18 23:45 (Narcan Inj) 0.4 mg UNSCH PRN IV PUSH 01/12/18 23:45 (Morphine 1 Mg/ ml FOUNDRY MELT SUPERVISOR) 30 mg UNSCH IV 01/12/18 23:45 01/14/18 07:55 FOUNDRY MELT SUPERVISOR Dosage Infused (Pha) 1 Q8HR .XX 01/12/18 23:45 01/14/18 05:07 Cefazolin Sodium 1000 mg/Sodium Chloride 100 ml @ 200 mls/hr Q8H IV 01/13/18 14:00 01/16/18 13:59 01/14/18 05:06 Metronidazole 100 ml @ 100 mls/hr Q8H IV 01/13/18 20:00 01/16/18 19:59 01/14/18 04:11 (Duoneb Neb) 1 ampule Q6HR WHILE AWAKE NEB NEB 01/13/18 20:00 01/14/18 08:32 A/P Assessment and Plan //Cecal volvulus -s/p exploratory laparotomy and right colectomy performed by Dr. Zarate -pain management per surgery -PT eval/tx -continue NGT per surgery team -NPO. Continue on IVF. -follow up on path results //Leukocytosis -patient is afebrile -continue on IV abx per surgery team - Ancef and Flagyl IV -monitor white count //Anemia secondary to anemia of acute blood loss/postop -no active bleeding -continue to monitor CBC //Hx of lung cancer s/p resection -resume home bronchodilator therapy - patients to bring in from home -scheduled Duonebs -IS at bedside, encourage hourly use. Acapella -monitor respiratory status -supplemental oxygen to maintain O2 sats >92% //Hypokalemia -today 3.1 giving replacement for Potassium and Phosphorus. //Hyperglycemia -obtain A1c -accuchek and ISS //DVT prophylaxis -Bilateral scd/noman hose -avoidance of chemical prophylaxis periprocedural Discharge Planning Once cleared by General Surgery. William Ewing MD Jan 14, 2018 08:46
[2018-01-14 08:54] LABS: BICARBONATE 30.6 MEQ/L (21.0-32.0); CALCIUM 7.1 MG/DL (8.5-10.1); CREATININE 0.49 MG/DL (0.50-1.00)
[2018-01-14 09:19] LABS: CALCIUM-PROTEIN CORRECTED 8.1 MG/DL (8.5-10.1); TOTAL PROTEIN 5.2 GM/DL (6.4-8.2)
--- NOTE | 2018-01-14 12:30 | HHI.PR ---
Subjective Remarks POD#2 s/p ascending colectomy short of breath, painful Objective Vital Signs Date Time Temp Pulse Resp B/P (MAP) Pulse Ox O2 Delivery O2 Flow Rate FiO2 01/14/18 08:33 96 Nasal Cannula 3.00 01/14/18 08:00 98.0 87 16 132/70 (90) 94 01/14/18 07:55 12 01/14/18 05:07 18 01/14/18 04:00 98.4 86 18 127/68 (87) 94 01/14/18 00:00 97.8 93 16 146/72 (96) 98 01/13/18 21:15 18 01/13/18 20:17 96 Nasal Cannula 2.00 01/13/18 20:00 98.4 84 16 123/73 (90) 98 01/13/18 16:33 97.8 84 18 120/59 (79) 97 01/13/18 15:11 14 01/13/18 13:13 97.2 84 18 93/51 (65) 93 I/O 01/13/18 01/13/18 01/13/18 01/14/18 01/14/18 01/14/18 07:00 15:00 23:00 07:00 15:00 23:00 Intake Total 2024 ml 1100 ml 200 ml 200 ml Output Total 690 ml 25 ml 400 ml 1200 ml Balance 1334 ml -25 ml 700 ml -1000 ml 200 ml Intake Oral 100 ml 0 ml IV Total 924 ml 1100 ml 200 ml 200 ml Other 1000 ml Output Urine Total 490 ml 400 ml 1200 ml Gastric Drainage Total 150 ml 25 ml 0 ml Estimated Blood Loss 50 ml # Bowel Movements 0 Result Diagram: 01/14/1825 01/14/18 0725 Procedures EGD s/p exp laparotomy and right colectomy by Dr. Zarate Objective Remarks Abdomen soft, nondistended, tender Wound clean Assessment and Plan Assessment and Plan Increase O2 OK to take Home med for breathing Mobilize, encouraged incentive spirometry Decrease IVF, Edna Mclaughlin MD Jan 14, 2018 12:30
[2018-01-14] MEDS ORDERED: RESP: ALBUTEROL 2.5 MG/3 ML NEB (PRN) NEB (12:45)
[2018-01-14] MEDS: FUROSEMIDE 20 MG/2 ML VIAL IV PUSH SCH (17:20)
[2018-01-14] MEDS: ATORVASTATIN 80 MG TAB PO SCH (20:31)
[2018-01-14] MEDS: POTASSIUM CHLOR 20 MEQ PREMIX 100 ML IV PRN (20:36)
[2018-01-14] MEDS ORDERED: POTASSIUM CHLORIDE 20 MEQ CONTROLLED RELEASE TAB PO ONE (21:15)
[2018-01-14] MEDS ORDERED: CALCIUM GLUCONATE INJ 1 GM in DEXTROSE 5% IN WATER 100ML INJ 100 ML IV ONE ×2 (21:15)
[2018-01-15] VITALS (9 sets, daily range): BP systolic 116–140; BP diastolic 59–76; PULSE 92–107; RESP 16–20; TEMP 98–99; O2SAT 92–94
[2018-01-15] MEDS ORDERED: POTASSIUM CHLORIDE 20 MEQ CONTROLLED RELEASE TAB PO ONE (01:00)
[2018-01-15] MEDS: RESP: ALBUTEROL 2.5 MG/IPRATROPIUM 0.5 MG NEB (SCH) NEB ×7 (04:02→23:19)
[2018-01-15] MEDS: MORPHINE SULFATE 30 MG/30 ML PCA IV SCH (04:55)
[2018-01-15] MEDS: metroNIDAZOLE 500 MG INJ 100 ML IV SCH ×3 (04:56→20:42)
[2018-01-15] MEDS: PCA - TOTAL MG MORPHINE DELIVERED PER SHIFT SCH ×3 (04:57→20:42)
[2018-01-15 05:45] LABS: BICARBONATE 27.9 MEQ/L (21.0-32.0); CALCIUM 7.7 MG/DL (8.5-10.1); CREATININE 0.59 MG/DL (0.50-1.00); PHOSPHORUS 0.9 MG/DL (2.5-4.9)
[2018-01-15] MEDS: CETIRIZINE HCL 10 MG TAB PO SCH (08:03)
[2018-01-15] MEDS: LISINOPRIL 20 MG TAB PO SCH ×2 (08:04→20:42)
[2018-01-15] MEDS: MULTIVITAMINS/MINERALS THERAPEUTIC TAB PO SCH (08:04)
[2018-01-15] MEDS: ALVIMOPAN 12 MG CAPSULE PO SCH ×2 (08:04→20:42)
[2018-01-15] MEDS: amLODIPine BESYLATE 5 MG TAB PO SCH (08:04)
[2018-01-15] MEDS: NICOTINE 14 MG/24 HR PATCH T-DERMAL SCH (08:04)
[2018-01-15] MEDS: SODIUM CHLORIDE 0.9% FLUSH 10 ML FLUSH IV FLUSH SCH ×2 (08:05→20:40)
[2018-01-15] MEDS: REMOVE OLD PATCH T-DERMAL SCH (08:05)
[2018-01-15] MEDS: METOCLOPRAMIDE HCL 10 MG/2 ML VIAL IVS SCH ×2 (08:05→20:41)
[2018-01-15] MEDS: FUROSEMIDE 20 MG/2 ML VIAL IV PUSH SCH ×2 (08:05→16:04)
[2018-01-15] MEDS: POTASSIUM CHLORIDE 20 MEQ CONTROLLED RELEASE TAB PO ONE ×2 (08:30→09:47)
[2018-01-15] MEDS ORDERED: POTASSIUM PHOSPHATE INJ 30 MMOL in SODIUM CHLOR 0.9% 250 ML INJ 250 ML IV ONE ×2 (10:00→17:00)
--- NOTE | 2018-01-15 12:46 | HHI.PR ---
Subjective Remarks POD#2 s/p ascending colectomy much better, denies SOB Objective Vital Signs Date Time Temp Pulse Resp B/P (MAP) Pulse Ox O2 Delivery O2 Flow Rate FiO2 01/15/18 11:42 98.0 97 17 135/68 (90) 94 01/15/18 08:14 Nasal Cannula 4.00 01/15/18 08:00 98.3 101 19 140/68 (92) 92 01/15/18 04:57 20 01/15/18 04:55 20 01/15/18 04:08 92 Nasal Cannula 6.00 01/15/18 04:00 98.0 98 20 122/63 (82) 94 01/15/18 00:00 98.4 92 20 121/59 (79) 92 01/14/18 21:04 93 Nasal Cannula 4.00 01/14/18 20:33 20 01/14/18 20:30 4.00 01/14/18 20:00 98.6 97 22 141/70 (93) 91 01/14/18 16:00 98.1 94 17 140/67 (91) 92 01/14/18 14:37 92 01/14/18 14:37 92 Nasal Cannula 4.00 01/14/18 12:57 17 I/O 01/14/18 01/14/18 01/14/18 01/15/18 01/15/18 01/15/18 07:00 15:00 23:00 07:00 15:00 23:00 Intake Total 200 ml 300 ml 670 ml 360 ml Output Total 1200 ml 175 ml 900 ml 650 ml Balance -1000 ml 125 ml -230 ml -290 ml Intake Oral 670 ml 360 ml IV Total 200 ml 300 ml Output Urine Total 1200 ml 175 ml 900 ml 650 ml Gastric Drainage Total 0 ml # Bowel Movements 0 1 Result Diagram: 01/14/18 0725 01/15/18 0400 Procedures EGD s/p exp laparotomy and right colectomy by Dr. Zarate Objective Remarks Abdomen soft, nondistended, tender Wound clean Assessment and Plan Assessment and Plan Tolerating clears - advance to full liquid Wean O2 as tolerated Encouraged mobilization, pulmonary toilet Edna Medina MD Jan 15, 2018 12:46
[2018-01-15] MEDS ORDERED: SODIUM CHLORID 0.9% 500 ML INJ 500 ML IV ONE (13:45)
--- NOTE | 2018-01-15 16:28 | HHI.PR ---
Subjective Remarks This is a pleasant 67 y/o Female, history of Lung cancer, brought in to ER with Abdominal pain nausea and vomit, followed by GI specialist, as we know she has COPD, Hypertension, Right Upper lobe squamous cell carcinoma and left upper lung adenocarcinoma, S/P left upper lobectomy and mediastinal lymph node dissection. Admits to occasion ETOH. Smokes 10 cigarettes a day. Denies illicit drug use. Also admits to taking a lot of Ibuprofen recently for back pain. 01/13/18 s/p EGD and colonoscopy 01/12 found esophagitis, gastritis, colon polyps , colon torsion vs volvulus. CRS consulted and she is s/p ex lap and right colectomy. Dr. 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 Status post laparotomy and Right colectomy by Dr. Zarate. 01/14: Seen in her bedroom in the presence of her Mr. Lundberg, she is been coughing will continue Bronchodilator Mucolytic and incentive spirometry. 01/15: Stable in her bedroom again with her Mr. Lundberg, no nausea, vomit or diarrhea continue replacing electrolytes Objective Vital Signs Date Time Temp Pulse Resp B/P (MAP) Pulse Ox O2 Delivery O2 Flow Rate FiO2 01/15/18 15:48 94 Nasal Cannula 4.00 01/15/18 11:42 98.0 97 17 135/68 (90) 94 01/15/18 08:14 Nasal Cannula 4.00 01/15/18 08:00 98.3 101 19 140/68 (92) 92 01/15/18 04:57 20 01/15/18 04:55 20 01/15/18 04:08 92 Nasal Cannula 6.00 01/15/18 04:00 98.0 98 20 122/63 (82) 94 01/15/18 00:00 98.4 92 20 121/59 (79) 92 01/14/18 21:04 93 Nasal Cannula 4.00 01/14/18 20:33 20 01/14/18 20:30 4.00 01/14/18 20:00 98.6 97 22 141/70 (93) 91 I/O 01/14/18 01/14/18 01/14/18 01/15/18 01/15/18 01/15/18 07:00 15:00 23:00 07:00 15:00 23:00 Intake Total 200 ml 300 ml 670 ml 360 ml Output Total 1200 ml 175 ml 900 ml 650 ml Balance -1000 ml 125 ml -230 ml -290 ml Intake Oral 670 ml 360 ml IV Total 200 ml 300 ml Output Urine Total 1200 ml 175 ml 900 ml 650 ml Gastric Drainage Total 0 ml # Bowel Movements 0 1 Result Diagram: 01/14/18 0725 01/15/18 0400 Imaging Last Impressions Abdomen/Pelvis CT 01/11/18 0000 Signed Impressions: Service Date/Time: Thursday, January 11, 2018 01:04 - CONCLUSION: 1. Small amount of pelvic free fluid. 2. Normal appendix. 3. Gaseous distention of the ascending colon without obstruction. Aman Cruz MD Abdomen X-Ray 01/10/18 1966 Signed Impressions: Service Date/Time: Thursday, January 11, 2018 00:02 - CONCLUSION: Mild gaseous distention of bowel loops in right abdomen without obstruction. Round benign-appearing calcification to the left of L4 vertebral body. Aman Cruz MD Procedures EGD s/p exp laparotomy and right colectomy by Dr. Zarate Other Results Laboratory Tests Test 01/11/18 00:20 01/11/18 00:24 01/13/18 07:27 01/14/18 07:25 Prothrombin Time 10.1 SEC Prothromb Time International Ratio 1.0 RATIO Activated Partial Thromboplast Time 22.6 SEC Lactic Acid Level 0.5 mmol/L Lipase 146 U/L Urine Color YELLOW Urine Turbidity CLEAR Urine pH 6.5 Urine Specific [place] 1.010 Urine Protein TRACE mg/dL Urine Glucose (UA) NEG mg/dL Urine Ketones 10 mg/dL Urine Occult Blood SMALL Urine Nitrite NEG Urine Bilirubin NEG Urine Urobilinogen LESS THAN 2.0 MG/DL Urine Leukocyte Esterase TRACE Urine RBC 26 /hpf Urine WBC 3 /hpf Urine Squamous Epithelial Cells 3 /hpf Urine Amorphous Sediment RARE Urine Mucus FEW /lpf Microscopic Urinalysis Comment CULT NOT INDICATED Differential Total Cells Counted 100 Neutrophils % (Manual) 87 % Band Neutrophils % 10 % Lymphocytes % 2 % Monocytes % 1 % Neutrophils # (Manual) 15.5 TH/MM3 Platelet Estimate NORMAL Platelet Morphology Comment NORMAL Ovalocytes 1+ Acanthocytes OCC Blood Urea Nitrogen 16 MG/DL 7 MG/DL Creatinine 0.67 MG/DL 0.49 MG/DL Random Glucose 226 MG/DL 127 MG/DL Total Protein 4.7 GM/DL 5.2 GM/DL Albumin 2.1 GM/DL Calcium Level 6.9 MG/DL 7.1 MG/DL Phosphorus Level 1.7 MG/DL Magnesium Level 2.9 MG/DL Alkaline Phosphatase 43 U/L Aspartate Amino Transf (AST/SGOT) 25 U/L Alanine Aminotransferase (ALT/SGPT) 18 U/L Total Bilirubin 0.2 MG/DL Sodium Level 145 MEQ/L 148 MEQ/L Potassium Level 3.4 MEQ/L 3.1 MEQ/L Chloride Level 110 MEQ/L 112 MEQ/L Carbon Dioxide Level 31.1 MEQ/L 30.6 MEQ/L White Blood Count 16.7 TH/MM3 Red Blood Count 3.45 MIL/MM3 Hemoglobin 10.3 GM/DL Hematocrit 30.6 % Mean Corpuscular Volume 88.7 FL Mean Corpuscular Hemoglobin 29.9 PG Mean Corpuscular Hemoglobin Concent 33.7 % Red Cell Distribution Width 14.5 % Platelet Count 228 TH/MM3 Mean Platelet Volume 7.6 FL Neutrophils (%) (Auto) 83.4 % Lymphocytes (%) (Auto) 10.6 % Monocytes (%) (Auto) 5.6 % Eosinophils (%) (Auto) 0.0 % Basophils (%) (Auto) 0.4 % Neutrophils # (Auto) 13.9 TH/MM3 Lymphocytes # (Auto) 1.8 TH/MM3 Monocytes # (Auto) 0.9 TH/MM3 Eosinophils # (Auto) 0.0 TH/MM3 Basophils # (Auto) 0.1 TH/MM3 CBC Comment DIFF FINAL Differential Comment Protein Corrected Calcium 8.1 MG/DL Test 01/15/18 04:00 01/15/18 15:09 Blood Urea Nitrogen 6 MG/DL Creatinine 0.59 MG/DL Random Glucose 150 MG/DL Calcium Level 7.7 MG/DL Phosphorus Level 0.9 MG/DL 0.9 MG/DL Magnesium Level 2.0 MG/DL Sodium Level 141 MEQ/L Potassium Level 3.5 MEQ/L Chloride Level 107 MEQ/L Carbon Dioxide Level 27.9 MEQ/L Anion Gap 6 MEQ/L Estimat Glomerular Filtration Rate 102 ML/MIN Objective Remarks GENERAL: No acute distress. SKIN: Warm and dry. HEAD: Atraumatic. Normocephalic. EYES: Pupils equal and round. No scleral icterus. No injection or drainage. ENT: No nasal bleeding or discharge. Mucous membranes pink and moist. NG tube right nare. NECK: Trachea midline. CARDIOVASCULAR: Regular rate and rhythm. RESPIRATORY: No accessory muscle use. Clear to auscultation. Breath sounds equal bilaterally. GASTROINTESTINAL: Abdomen postop binder in place, hypoactive BS. MUSCULOSKELETAL: Extremities without clubbing, cyanosis, or edema. No obvious deformities. NEUROLOGICAL: Awake and alert. No obvious cranial nerve deficits. Motor grossly within normal limits. Normal speech. PSYCHIATRIC: Appropriate mood and affect; insight and judgment normal. Medications and IVs Current Medications Medications (Trade) Dose Ordered Sig/Melvin Route Start Time Stop Time Status Last Admin (Dilaudid Pf Inj) 1 mg Q4H PRN IV 01/11/18 02:45 01/12/18 03:02 (Norvasc) 5 mg DAILY PO 01/11/18 11:00 01/15/18 08:04 (Lipitor) 80 mg HS PO 01/11/18 21:00 01/14/18 20:31 (ZyrTEC) 10 mg DAILY PO 01/11/18 12:00 01/15/18 08:03 (Prinivil) 40 mg BID PO 01/11/18 11:30 01/15/18 08:04 (Theragran M Tab) 1 tab DAILY PO 01/11/18 12:00 01/15/18 08:04 (NS Flush) 2 ml UNSCH PRN IV FLUSH 01/11/18 10:15 (NS Flush) 2 ml BID IV FLUSH 01/11/18 21:00 01/14/18 20:32 (Tylenol) 650 mg Q4H PRN PO 01/11/18 10:15 (Zofran Inj) 4 mg Q6H PRN IVP 01/11/18 10:15 01/12/18 08:58 (Reglan Inj) 5 mg Q6H PRN IV PUSH 01/11/18 10:15 (Ambien) 5 mg HS PRN PO 01/11/18 10:15 (Percocet 5-325 Mg) 1 tab Q6H PRN PO 01/11/18 10:15 01/12/18 09:08 (Percocet 10-325 Mg) 1 tab Q6H PRN PO 01/11/18 10:15 01/12/18 18:04 (Habitrol 14 Mg Patch.24 Hr) 1 patch DAILY T-DERMAL 01/12/18 09:00 Miscellaneous Information 1 DAILY T-DERMAL 01/12/18 09:00 (Betadine 5% Antisepsis Kit) 1 applic APPLICATION SECURITY ENGINEER PRN EACH NARE 01/12/18 20:45 01/15/18 20:44 (Chlorhexidine 2% Cloth) 3 pack APPLICATION SECURITY ENGINEER PRN TOPICAL 01/12/18 20:45 01/15/18 20:44 (Toradol Inj) 30 mg Q6H PRN IVP 01/12/18 23:45 01/15/18 23:44 (Entereg) 12 mg BID PO 01/12/18 23:45 01/19/18 09:01 01/15/18 08:04 (Reglan Inj) 10 mg Q12HR IVS 01/13/18 09:00 01/15/18 08:05 (Vasotec Inj) 1.25 mg Q4H PRN IV PUSH 01/12/18 23:45 (Vasotec Inj) 2.5 mg Q6H PRN IV PUSH 01/12/18 23:45 (Chloraseptic Lindsay) 1 lozenge UNSCH PRN BUCCAL 01/12/18 23:45 (Narcan Inj) 0.4 mg UNSCH PRN IV PUSH 01/12/18 23:45 (Morphine 1 Mg/ ml AIRCRAFT ELECTRICIAN) 30 mg UNSCH IV 01/12/18 23:45 01/15/18 04:55 AIRCRAFT ELECTRICIAN Dosage Infused (Pha) 1 Q8HR .XX 01/12/18 23:45 01/15/18 13:45 Cefazolin Sodium 1000 mg/Sodium Chloride 100 ml @ 200 mls/hr Q8H IV 01/13/18 14:00 01/16/18 13:59 01/15/18 13:44 Metronidazole 100 ml @ 100 mls/hr Q8H IV 01/13/18 20:00 01/16/18 19:59 01/15/18 10:21 (Duoneb Neb) 1 ampule Q4HR NEB NEB 01/14/18 12:00 01/15/18 15:48 (Albuterol Neb) 2.5 mg Q6HR NEB PRN NEB 01/14/18 12:45 (Lasix Inj) 20 mg BID@,18 IV PUSH 01/14/18 18:00 01/15/18 16:04 A/P Assessment and Plan //Cecal volvulus -s/p exploratory laparotomy and right colectomy performed by Dr. Zarate -pain management per surgery -PT eval/tx -continue NGT per surgery team -started on liquid diet by General Surgery. -follow up on path results //Leukocytosis -patient is afebrile -continue on IV abx per surgery team - Ancef and Flagyl IV -monitor white count //Anemia secondary to anemia of acute blood loss/postop -no active bleeding hemoglobin 10.3 //Hx of lung cancer s/p resection -resume home bronchodilator therapy - patients to bring in from home -scheduled Bronchodilator, Mucolytic and incentive spirometry. -supplemental oxygen to maintain O2 sats >92% //Hypokalemia -today 3.5 giving potassium by mouth, Phosphorus two times during the day Phosphorus 0.9 giving 30 mmol of Potassium phosphate two times today. //Hyperglycemia -obtain A1c -accuchek and ISS //DVT prophylaxis -Bilateral scd/noman hose -avoidance of chemical prophylaxis periprocedural Encourage ambulation. Discharge Planning Once cleared by General Surgery. William Ewing MD Jan 15, 2018 16:28
[2018-01-15] MEDS: ATORVASTATIN 80 MG TAB PO SCH (20:42)
[2018-01-15] MEDS: guaiFENesin E.R. 600 MG TAB PO SCH (20:42)
[2018-01-16] VITALS (8 sets, daily range): BP systolic 98–137; BP diastolic 55–67; PULSE 98–109; RESP 16–20; TEMP 97.9–98.8; O2SAT 92–98
[2018-01-16] MEDS: RESP: ALBUTEROL 2.5 MG/IPRATROPIUM 0.5 MG NEB (SCH) NEB ×6 (04:03→23:47)
[2018-01-16] MEDS: metroNIDAZOLE 500 MG INJ 100 ML IV SCH ×3 (04:27→15:14)
[2018-01-16] MEDS: PCA - TOTAL MG MORPHINE DELIVERED PER SHIFT SCH ×3 (04:49→21:38)
[2018-01-16 08:05] LABS: AUTOMATED NEUTROPHIL # 8.7 TH/MM3 (1.8-7.7); BASOPHIL % 0.4 % (0.0-2.0); EOSINOPHIL % 0.4 % (0.0-4.0); HEMATOCRIT 31.7 % (35.0-46.0); HEMOGLOBIN 10.8 GM/DL (11.6-15.3); LYMPH % 12.8 % (9.0-44.0); LYMPHOCYTE # 1.4 TH/MM3 (1.0-4.8); MEAN CELL VOLUME 88.3 FL (80.0-100.0); MEAN PLATELET VOLUME 7.7 FL (7.0-11.0); MONO % 4.9 % (0.0-8.0); MONOCYTE # 0.5 TH/MM3 (0-0.9); NEUT % 81.5 % (16.0-70.0); PLATELET COUNT 262 TH/MM3 (150-450); RED BLOOD COUNT 3.59 MIL/MM3 (4.00-5.30); RED CELL DISTRIBUTION WIDTH 14.4 % (11.6-17.2); WHITE BLOOD COUNT 10.7 TH/MM3 (4.0-11.0)
--- NOTE | 2018-01-16 08:06 | HHI.PR ---
Subjective Remarks This is a pleasant 67 y/o Female, history of Lung cancer, brought in to ER with Abdominal pain nausea and vomit, followed by GI specialist, as we know she has COPD, Hypertension, Right Upper lobe squamous cell carcinoma and left upper lung adenocarcinoma, S/P left upper lobectomy and mediastinal lymph node dissection. Admits to occasion ETOH. Smokes 10 cigarettes a day. Denies illicit drug use. Also admits to taking a lot of Ibuprofen recently for back pain. 01/13/18 s/p EGD and colonoscopy 01/12 found esophagitis, gastritis, colon polyps , colon torsion vs volvulus. CRS consulted and she is s/p ex lap and right colectomy. Dr. 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 Status post laparotomy and Right colectomy by Dr. Zarate. 01/14: Seen in her bedroom in the presence of her Mr. Lundberg, she is been coughing will continue Bronchodilator Mucolytic and incentive spirometry. 01/15: Stable in her bedroom again with her Mr. Lundberg, continue replacing electrolytes 01/16: Her present no nausea, vomit or diarrhea, her present. Objective Vital Signs Date Time Temp Pulse Resp B/P (MAP) Pulse Ox O2 Delivery O2 Flow Rate FiO2 01/16/18 04:49 20 01/16/18 04:00 98.6 101 18 121/67 (85) 96 01/16/18 00:00 98.4 103 18 117/58 (77) 93 01/15/18 23:21 92 Nasal Cannula 4.50 01/15/18 20:42 20 01/15/18 20:00 99.0 107 18 116/60 (78) 94 01/15/18 19:45 Nasal Cannula 01/15/18 16:00 98.7 106 16 120/76 (91) 94 01/15/18 15:48 94 Nasal Cannula 4.00 01/15/18 11:42 98.0 97 17 135/68 (90) 94 01/15/18 08:14 Nasal Cannula 4.00 I/O 01/15/18 01/15/18 01/15/18 01/16/18 01/16/18 01/16/18 07:00 15:00 23:00 07:00 15:00 23:00 Intake Total 360 ml 460 ml 975 ml 240 ml Output Total 650 ml Balance -290 ml 460 ml 975 ml 240 ml Intake Oral 360 ml 475 ml 240 ml IV Total 460 ml 500 ml Output Urine Total 650 ml # Voids 100 3 # Bowel Movements 1 1 2 Result Diagram: 01/14/18 0725 01/15/18 0400 Imaging Last Impressions Abdomen/Pelvis CT 01/11/18 0000 Signed Impressions: Service Date/Time: Thursday, January 11, 2018 01:04 - CONCLUSION: 1. Small amount of pelvic free fluid. 2. Normal appendix. 3. Gaseous distention of the ascending colon without obstruction. Aman Cruz MD Abdomen X-Ray 01/10/18 0046 Signed Impressions: Service Date/Time: Thursday, January 11, 2018 00:02 - CONCLUSION: Mild gaseous distention of bowel loops in right abdomen without obstruction. Round benign-appearing calcification to the left of L4 vertebral body. Aman Cruz MD Procedures EGD s/p exp laparotomy and right colectomy by Dr. Zarate Other Results Laboratory Tests Test 01/11/18 00:20 01/11/18 00:24 01/13/18 07:27 01/14/18 07:25 Prothrombin Time 10.1 SEC Prothromb Time International Ratio 1.0 RATIO Activated Partial Thromboplast Time 22.6 SEC Lactic Acid Level 0.5 mmol/L Lipase 146 U/L Urine Color YELLOW Urine Turbidity CLEAR Urine pH 6.5 Urine Specific [place] 1.010 Urine Protein TRACE mg/dL Urine Glucose (UA) NEG mg/dL Urine Ketones 10 mg/dL Urine Occult Blood SMALL Urine Nitrite NEG Urine Bilirubin NEG Urine Urobilinogen LESS THAN 2.0 MG/DL Urine Leukocyte Esterase TRACE Urine RBC 26 /hpf Urine WBC 3 /hpf Urine Squamous Epithelial Cells 3 /hpf Urine Amorphous Sediment RARE Urine Mucus FEW /lpf Microscopic Urinalysis Comment CULT NOT INDICATED Differential Total Cells Counted 100 Neutrophils % (Manual) 87 % Band Neutrophils % 10 % Lymphocytes % 2 % Monocytes % 1 % Neutrophils # (Manual) 15.5 TH/MM3 Platelet Estimate NORMAL Platelet Morphology Comment NORMAL Ovalocytes 1+ Acanthocytes OCC Blood Urea Nitrogen 16 MG/DL 7 MG/DL Creatinine 0.67 MG/DL 0.49 MG/DL Random Glucose 226 MG/DL 127 MG/DL Total Protein 4.7 GM/DL 5.2 GM/DL Albumin 2.1 GM/DL Calcium Level 6.9 MG/DL 7.1 MG/DL Phosphorus Level 1.7 MG/DL Magnesium Level 2.9 MG/DL Alkaline Phosphatase 43 U/L Aspartate Amino Transf (AST/SGOT) 25 U/L Alanine Aminotransferase (ALT/SGPT) 18 U/L Total Bilirubin 0.2 MG/DL Sodium Level 145 MEQ/L 148 MEQ/L Potassium Level 3.4 MEQ/L 3.1 MEQ/L Chloride Level 110 MEQ/L 112 MEQ/L Carbon Dioxide Level 31.1 MEQ/L 30.6 MEQ/L Protein Corrected Calcium 8.1 MG/DL Test 01/15/18 04:00 01/16/18 06:27 Estimat Glomerular Filtration Rate 102 ML/MIN White Blood Count 10.7 TH/MM3 Red Blood Count 3.59 MIL/MM3 Hemoglobin 10.8 GM/DL Hematocrit 31.7 % Mean Corpuscular Volume 88.3 FL Mean Corpuscular Hemoglobin 30.0 PG Mean Corpuscular Hemoglobin Concent 34.0 % Red Cell Distribution Width 14.4 % Platelet Count 262 TH/MM3 Mean Platelet Volume 7.7 FL Neutrophils (%) (Auto) 81.5 % Lymphocytes (%) (Auto) 12.8 % Monocytes (%) (Auto) 4.9 % Eosinophils (%) (Auto) 0.4 % Basophils (%) (Auto) 0.4 % Neutrophils # (Auto) 8.7 TH/MM3 Lymphocytes # (Auto) 1.4 TH/MM3 Monocytes # (Auto) 0.5 TH/MM3 Eosinophils # (Auto) 0.0 TH/MM3 Basophils # (Auto) 0.0 TH/MM3 CBC Comment DIFF FINAL Differential Comment Objective Remarks GENERAL: No acute distress. SKIN: Warm and dry. HEAD: Atraumatic. Normocephalic. EYES: Pupils equal and round. No scleral icterus. No injection or drainage. ENT: No nasal bleeding or discharge. Mucous membranes pink and moist. NG tube right nare. NECK: Trachea midline. CARDIOVASCULAR: Regular rate and rhythm. RESPIRATORY: No accessory muscle use. Clear to auscultation. Breath sounds equal bilaterally. GASTROINTESTINAL: Abdomen postop binder in place, hypoactive BS. MUSCULOSKELETAL: Extremities without clubbing, cyanosis, or edema. No obvious deformities. NEUROLOGICAL: Awake and alert. No obvious cranial nerve deficits. Motor grossly within normal limits. Normal speech. PSYCHIATRIC: Appropriate mood and affect; insight and judgment normal. Medications and IVs Current Medications Medications (Trade) Dose Ordered Sig/Melvin Route Start Time Stop Time Status Last Admin (Dilaudid Pf Inj) 1 mg Q4H PRN IV 01/11/18 02:45 01/12/18 03:02 (Norvasc) 5 mg DAILY PO 01/11/18 11:00 01/15/18 08:04 (Lipitor) 80 mg HS PO 01/11/18 21:00 01/15/18 20:42 (ZyrTEC) 10 mg DAILY PO 01/11/18 12:00 01/15/18 08:03 (Prinivil) 40 mg BID PO 01/11/18 11:30 01/15/18 20:42 (Theragran M Tab) 1 tab DAILY PO 01/11/18 12:00 01/15/18 08:04 (NS Flush) 2 ml UNSCH PRN IV FLUSH 01/11/18 10:15 (NS Flush) 2 ml BID IV FLUSH 01/11/18 21:00 01/15/18 20:40 (Tylenol) 650 mg Q4H PRN PO 01/11/18 10:15 (Zofran Inj) 4 mg Q6H PRN IVP 01/11/18 10:15 01/12/18 08:58 (Reglan Inj) 5 mg Q6H PRN IV PUSH 01/11/18 10:15 (Ambien) 5 mg HS PRN PO 01/11/18 10:15 (Percocet 5-325 Mg) 1 tab Q6H PRN PO 01/11/18 10:15 01/12/18 09:08 (Percocet 10-325 Mg) 1 tab Q6H PRN PO 01/11/18 10:15 01/12/18 18:04 (Habitrol 14 Mg Patch.24 Hr) 1 patch DAILY T-DERMAL 01/12/18 09:00 Miscellaneous Information 1 DAILY T-DERMAL 01/12/18 09:00 (Entereg) 12 mg BID PO 01/12/18 23:45 01/19/18 09:01 01/15/18 20:42 (Reglan Inj) 10 mg Q12HR IVS 01/13/18 09:00 01/15/18 20:41 (Vasotec Inj) 1.25 mg Q4H PRN IV PUSH 01/12/18 23:45 (Vasotec Inj) 2.5 mg Q6H PRN IV PUSH 01/12/18 23:45 (Chloraseptic Lindsay) 1 lozenge UNSCH PRN BUCCAL 01/12/18 23:45 (Narcan Inj) 0.4 mg UNSCH PRN IV PUSH 01/12/18 23:45 (Morphine 1 Mg/ ml DAIRY FEED SALES CONSULTANT) 30 mg UNSCH IV 01/12/18 23:45 01/15/18 04:55 DAIRY FEED SALES CONSULTANT Dosage Infused (Pha) 1 Q8HR .XX 01/12/18 23:45 01/16/18 04:49 Cefazolin Sodium 1000 mg/Sodium Chloride 100 ml @ 200 mls/hr Q8H IV 01/13/18 14:00 01/16/18 13:59 01/16/18 04:27 Metronidazole 100 ml @ 100 mls/hr Q8H IV 01/13/18 20:00 01/16/18 19:59 01/16/18 04:27 (Duoneb Neb) 1 ampule Q4HR NEB NEB 01/14/18 12:00 01/16/18 04:03 (Albuterol Neb) 2.5 mg Q6HR NEB PRN NEB 01/14/18 12:45 (Lasix Inj) 20 mg BID@,18 IV PUSH 01/14/18 18:00 01/15/18 16:04 (Mucinex Er) 600 mg BID PO 01/15/18 21:00 01/15/18 20:42 A/P Assessment and Plan //Cecal volvulus -s/p exploratory laparotomy and right colectomy performed by Dr. Zarate -pain management per surgery -PT eval/tx -started on liquid diet by General Surgery. -follow up on path results //Leukocytosis Improved, continue Ancef and Flagyl IV, //Anemia secondary to anemia of acute blood loss/postop -no active bleeding hemoglobin 10.8 //Hx of lung cancer s/p resection -resume home bronchodilator therapy - patients to bring in from home -scheduled Bronchodilator, Mucolytic and incentive spirometry. -supplemental oxygen to maintain O2 sats >92% //Electrolyte derangement, replaced, today magnesium 1.8 giving 1 gram of magnesium sulfate Potassium 3.6 giving 40 meq by mouth and Phosphorus 2 giving 15 mmol of Potassium Phosphate. //Hyperglycemia -Not yet got the Hemoglobin A1C asked again. -blood sugar check and continue sliding scale. //DVT prophylaxis -Bilateral scd/noman hose Encourage ambulation. Lovenox. Discharge Planning Once cleared by General Surgery. William Ewing MD Jan 16, 2018 08:06
[2018-01-16 08:31] LABS: BICARBONATE 26.3 MEQ/L (21.0-32.0); CALCIUM 7.5 MG/DL (8.5-10.1); CREATININE 0.54 MG/DL (0.50-1.00); MAGNESIUM 1.8 MG/DL (1.5-2.5)
[2018-01-16] MEDS: NICOTINE 14 MG/24 HR PATCH T-DERMAL SCH (09:00)
[2018-01-16] MEDS: REMOVE OLD PATCH T-DERMAL SCH (09:00)
[2018-01-16] MEDS: METOCLOPRAMIDE HCL 10 MG/2 ML VIAL IVS SCH (09:00)
[2018-01-16] MEDS: CETIRIZINE HCL 10 MG TAB PO SCH (09:21)
[2018-01-16] MEDS: SODIUM CHLORIDE 0.9% FLUSH 10 ML FLUSH IV FLUSH SCH ×2 (09:21→21:42)
[2018-01-16] MEDS: MULTIVITAMINS/MINERALS THERAPEUTIC TAB PO SCH (09:21)
[2018-01-16] MEDS: guaiFENesin E.R. 600 MG TAB PO SCH ×2 (09:22→21:36)
[2018-01-16] MEDS: amLODIPine BESYLATE 5 MG TAB PO SCH (09:22)
[2018-01-16] MEDS: ALVIMOPAN 12 MG CAPSULE PO SCH ×2 (09:22→21:36)
[2018-01-16] MEDS: LISINOPRIL 20 MG TAB PO SCH ×2 (09:22→21:37)
[2018-01-16] MEDS: FUROSEMIDE 20 MG/2 ML VIAL IV PUSH SCH ×2 (09:23→18:13)
[2018-01-16] MEDS: MORPHINE SULFATE 30 MG/30 ML PCA IV SCH (10:21)
[2018-01-16] MEDS ORDERED: POTASSIUM CHLORIDE 20 MEQ CONTROLLED RELEASE TAB PO ONE (11:45)
[2018-01-16] MEDS ORDERED: MAGNESIUM SULFATE 1 GM PREMIX 100 ML IV ONE (11:45)
[2018-01-16] MEDS: INSULIN ASPART SUPPLEMENTAL SCALE SQ SCH ×3 (12:00→21:42)
[2018-01-16] MEDS: ENOXAPARIN SODIUM 40 MG/0.4 ML SYRINGE SQ SCH (13:22)
[2018-01-16] MEDS ORDERED: POTASSIUM PHOSPHATE INJ 15 MMOL in SODIUM CHLORIDE 0.9% INJ 150 ML IV ONE (14:00)
--- NOTE | 2018-01-16 20:15 | RADRPT ---
EXAM DATE/TIME: 01/16/2018 19:55 [facility] COMPARISON: No previous studies available for comparison. INDICATIONS : Short of breath. MEDICAL HISTORY : Chronic obstructive pulmonary disease. Osteoporosis. Hypertension. SURGICAL HISTORY : Lobectomy. Coronary artery stent. ENCOUNTER: Subsequent ACUITY: 1 week PAIN SCORE: Non-responsive. LOCATION: Bilateral chest FINDINGS: A single view of the chest demonstrates subsegmental basilar airspace disease. Trace pleural fluid. [place] lower right rib fracture. Heart size normal. No pneumothorax. CONCLUSION: 1. Mild basilar airspace disease and small effusions. Heart size within normal limits. Hakan Arias MD on January 16, 2018 at 20:11 Board Certified Radiologist. This report was verified electronically.
[2018-01-16] MEDS: ATORVASTATIN 80 MG TAB PO SCH (21:36)
--- NOTE | 2018-01-16 23:08 | HHI.PR ---
Subjective Remarks C/R Surg POD #4 afebrile, VSS UO good no SOB +liquid stools Objective - Vital Signs Date Time Temp Pulse Resp B/P (MAP) Pulse Ox O2 Delivery O2 Flow Rate FiO2 01/16/18 21:51 Nasal Cannula 3.00 01/16/18 21:38 16 01/16/18 20:55 94 01/16/18 20:00 98.8 103 103/57 (72) Result Diagram: 01/16/1827 01/16/18626 Objective Remarks PE alert Abd - soft, rounded, wound dry A/P Assessment and Plan Imp: OOB decr IVF check CXR c. diff sent Beny Zarate MD Jan 16, 2018 23:08
[2018-01-17] VITALS (8 sets, daily range): BP systolic 105–134; BP diastolic 55–66; PULSE 97–120; RESP 16–20; TEMP 97.3–98.2; O2SAT 92–98
[2018-01-17] MEDS: RESP: ALBUTEROL 2.5 MG/IPRATROPIUM 0.5 MG NEB (SCH) NEB ×5 (03:44→20:44)
[2018-01-17] MEDS: PCA - TOTAL MG MORPHINE DELIVERED PER SHIFT SCH ×2 (05:04→13:56)
[2018-01-17 06:07] LABS: PHOSPHORUS 2.7 MG/DL (2.5-4.9)
[2018-01-17] MEDS: SODIUM CHLOR 0.45% 1000 ML INJ 1,000 ML IV SCH ×2 (06:15→21:04)
[2018-01-17] MEDS: INSULIN ASPART SUPPLEMENTAL SCALE SQ SCH ×4 (08:00→21:00)
[2018-01-17] MEDS: FUROSEMIDE 20 MG/2 ML VIAL IV PUSH SCH ×2 (08:45→17:58)
--- NOTE | 2018-01-17 08:45 | HHI.PR ---
Subjective Remarks This is a pleasant 67 y/o Female, history of Lung cancer, brought in to ER with Abdominal pain nausea and vomit, followed by GI specialist, as we know she has COPD, Hypertension, Right Upper lobe squamous cell carcinoma and left upper lung adenocarcinoma, S/P left upper lobectomy and mediastinal lymph node dissection. Admits to occasion ETOH. Smokes 10 cigarettes a day. Denies illicit drug use. Also admits to taking a lot of Ibuprofen recently for back pain. 01/13/18 s/p EGD and colonoscopy 01/12 found esophagitis, gastritis, colon polyps , colon torsion vs volvulus. CRS consulted and she is s/p ex lap and right colectomy. Dr. 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 Status post laparotomy and Right colectomy by Dr. Zarate. 01/14: Seen in her bedroom in the presence of her Mr. Lundberg, she is been coughing will continue Bronchodilator Mucolytic and incentive spirometry. 01/15: Stable in her bedroom again with her Mr. Lundberg, continue replacing electrolytes 01/16: Her present no nausea, vomit or diarrhea, her present. 01/17: Loose stools as expected secondary to resolution of Volvulus. stable in her bedroom, C Diff was negative, no nausea, vomit or diarrhea. Objective Vital Signs Date Time Temp Pulse Resp B/P (MAP) Pulse Ox O2 Delivery O2 Flow Rate FiO2 01/17/18 08:00 97.3 97 16 105/61 (76) 97 01/17/18 07:45 98 Nasal Cannula 3.00 01/17/18 05:04 18 01/17/18 04:00 97.9 100 20 109/55 (73) 96 01/17/18 00:00 97.7 114 20 134/57 (82) 92 01/16/18 21:51 Nasal Cannula 3.00 01/16/18 21:38 16 01/16/18 20:55 94 Nasal Cannula 3.00 01/16/18 20:00 98.8 103 20 103/57 (72) 96 01/16/18 16:22 3.00 01/16/18 16:00 98.3 108 16 98/55 (69) 98 01/16/18 12:00 98.8 109 16 114/61 (78) 96 I/O 01/16/18 01/16/18 01/16/18 01/17/18 01/17/18 01/17/18 07:00 15:00 23:00 07:00 15:00 23:00 Intake Total 240 ml 600 ml Output Total 251 ml Balance 240 ml 600 ml -251 ml Intake Oral 240 ml 600 ml Output Urine Total 250 ml Stool Total 1 ml # Voids 3 4 # Bowel Movements 2 4 1 Result Diagram: 01/16/18 0627 01/17/18 0441 Imaging Last Impressions Chest X-Ray 01/16/18 0000 Signed Impressions: Service Date/Time: Tuesday, January 16, 2018 19:55 - CONCLUSION: 1. Mild basilar airspace disease and small effusions. Heart size within normal limits. Hakan Arias MD Abdomen/Pelvis CT 01/11/18 0000 Signed Impressions: Service Date/Time: Thursday, January 11, 2018 01:04 - CONCLUSION: 1. Small amount of pelvic free fluid. 2. Normal appendix. 3. Gaseous distention of the ascending colon without obstruction. Aman Cruz MD Abdomen X-Ray 01/10/18 7558 Signed Impressions: Service Date/Time: Thursday, January 11, 2018 00:02 - CONCLUSION: Mild gaseous distention of bowel loops in right abdomen without obstruction. Round benign-appearing calcification to the left of L4 vertebral body. Aman Cruz MD Procedures EGD s/p exp laparotomy and right colectomy by Dr. Zarate Other Results Laboratory Tests Test 01/11/18 00:20 01/11/18 00:24 01/13/18 07:27 01/14/18 07:25 Prothrombin Time 10.1 SEC Prothromb Time International Ratio 1.0 RATIO Activated Partial Thromboplast Time 22.6 SEC Lactic Acid Level 0.5 mmol/L Lipase 146 U/L Urine Color YELLOW Urine Turbidity CLEAR Urine pH 6.5 Urine Specific [place] 1.010 Urine Protein TRACE mg/dL Urine Glucose (UA) NEG mg/dL Urine Ketones 10 mg/dL Urine Occult Blood SMALL Urine Nitrite NEG Urine Bilirubin NEG Urine Urobilinogen LESS THAN 2.0 MG/DL Urine Leukocyte Esterase TRACE Urine RBC 26 /hpf Urine WBC 3 /hpf Urine Squamous Epithelial Cells 3 /hpf Urine Amorphous Sediment RARE Urine Mucus FEW /lpf Microscopic Urinalysis Comment CULT NOT INDICATED Differential Total Cells Counted 100 Neutrophils % (Manual) 87 % Band Neutrophils % 10 % Lymphocytes % 2 % Monocytes % 1 % Neutrophils # (Manual) 15.5 TH/MM3 Platelet Estimate NORMAL Platelet Morphology Comment NORMAL Ovalocytes 1+ Acanthocytes OCC Blood Urea Nitrogen 16 MG/DL 7 MG/DL Creatinine 0.67 MG/DL 0.49 MG/DL Random Glucose 226 MG/DL 127 MG/DL Total Protein 4.7 GM/DL 5.2 GM/DL Albumin 2.1 GM/DL Calcium Level 6.9 MG/DL 7.1 MG/DL Phosphorus Level 1.7 MG/DL Magnesium Level 2.9 MG/DL Alkaline Phosphatase 43 U/L Aspartate Amino Transf (AST/SGOT) 25 U/L Alanine Aminotransferase (ALT/SGPT) 18 U/L Total Bilirubin 0.2 MG/DL Sodium Level 145 MEQ/L 148 MEQ/L Potassium Level 3.4 MEQ/L 3.1 MEQ/L Chloride Level 110 MEQ/L 112 MEQ/L Carbon Dioxide Level 31.1 MEQ/L 30.6 MEQ/L Protein Corrected Calcium 8.1 MG/DL Test 01/16/18 06:27 01/16/18 18:06 01/17/18 04:41 White Blood Count 10.7 TH/MM3 Red Blood Count 3.59 MIL/MM3 Hemoglobin 10.8 GM/DL Hematocrit 31.7 % Mean Corpuscular Volume 88.3 FL Mean Corpuscular Hemoglobin 30.0 PG Mean Corpuscular Hemoglobin Concent 34.0 % Red Cell Distribution Width 14.4 % Platelet Count 262 TH/MM3 Mean Platelet Volume 7.7 FL Neutrophils (%) (Auto) 81.5 % Lymphocytes (%) (Auto) 12.8 % Monocytes (%) (Auto) 4.9 % Eosinophils (%) (Auto) 0.4 % Basophils (%) (Auto) 0.4 % Neutrophils # (Auto) 8.7 TH/MM3 Lymphocytes # (Auto) 1.4 TH/MM3 Monocytes # (Auto) 0.5 TH/MM3 Eosinophils # (Auto) 0.0 TH/MM3 Basophils # (Auto) 0.0 TH/MM3 CBC Comment DIFF FINAL Differential Comment Blood Urea Nitrogen 7 MG/DL Creatinine 0.54 MG/DL Random Glucose 113 MG/DL Calcium Level 7.5 MG/DL Phosphorus Level 2.0 MG/DL 2.7 MG/DL Magnesium Level 1.8 MG/DL Sodium Level 142 MEQ/L Potassium Level 3.6 MEQ/L 3.8 MEQ/L Chloride Level 108 MEQ/L Carbon Dioxide Level 26.3 MEQ/L Anion Gap 8 MEQ/L Estimat Glomerular Filtration Rate 113 ML/MIN Stool C. difficile Toxin (PCR) NEGATIVE Stl C. difficile Toxin Epiderm 027 PRESUMPTIVE NEGATIVE Objective Remarks GENERAL: No acute distress. SKIN: Warm and dry. HEAD: Atraumatic. Normocephalic. EYES: Pupils equal and round. No scleral icterus. No injection or drainage. ENT: No nasal bleeding or discharge. Mucous membranes pink and moist. NG tube right nare. NECK: Trachea midline. CARDIOVASCULAR: Regular rate and rhythm. RESPIRATORY: No accessory muscle use. Clear to auscultation. Breath sounds equal bilaterally. GASTROINTESTINAL: Abdomen postop binder in place, hypoactive BS. MUSCULOSKELETAL: Extremities without clubbing, cyanosis, or edema. No obvious deformities. NEUROLOGICAL: Awake and alert. No obvious cranial nerve deficits. Motor grossly within normal limits. Normal speech. PSYCHIATRIC: Appropriate mood and affect; insight and judgment normal. Medications and IVs Current Medications Medications (Trade) Dose Ordered Sig/Melvin Route Start Time Stop Time Status Last Admin (Dilaudid Pf Inj) 1 mg Q4H PRN IV 01/11/18 02:45 01/12/18 03:02 (Norvasc) 5 mg DAILY PO 01/11/18 11:00 01/16/18 09:22 (Lipitor) 80 mg HS PO 01/11/18 21:00 01/16/18 21:36 (ZyrTEC) 10 mg DAILY PO 01/11/18 12:00 01/16/18 09:21 (Prinivil) 40 mg BID PO 01/11/18 11:30 01/16/18 21:37 (Theragran M Tab) 1 tab DAILY PO 01/11/18 12:00 01/16/18 09:21 (NS Flush) 2 ml UNSCH PRN IV FLUSH 01/11/18 10:15 (NS Flush) 2 ml BID IV FLUSH 01/11/18 21:00 01/16/18 21:42 (Tylenol) 650 mg Q4H PRN PO 01/11/18 10:15 (Zofran Inj) 4 mg Q6H PRN IVP 01/11/18 10:15 01/12/18 08:58 (Ambien) 5 mg HS PRN PO 01/11/18 10:15 (Percocet 5-325 Mg) 1 tab Q6H PRN PO 01/11/18 10:15 01/12/18 09:08 (Percocet 10-325 Mg) 1 tab Q6H PRN PO 01/11/18 10:15 01/12/18 18:04 (Habitrol 14 Mg Patch.24 Hr) 1 patch DAILY T-DERMAL 01/12/18 09:00 Miscellaneous Information 1 DAILY T-DERMAL 01/12/18 09:00 (Entereg) 12 mg BID PO 01/12/18 23:45 01/19/18 09:01 01/16/18 21:36 (Vasotec Inj) 1.25 mg Q4H PRN IV PUSH 01/12/18 23:45 (Vasotec Inj) 2.5 mg Q6H PRN IV PUSH 01/12/18 23:45 (Chloraseptic Lindsay) 1 lozenge UNSCH PRN BUCCAL 01/12/18 23:45 (Narcan Inj) 0.4 mg UNSCH PRN IV PUSH 01/12/18 23:45 (Morphine 1 Mg/ ml TRAINING TECHNICIAN) 30 mg UNSCH IV 01/12/18 23:45 01/16/18 10:21 TRAINING TECHNICIAN Dosage Infused (Pha) 1 Q8HR .XX 01/12/18 23:45 01/17/18 05:04 (Duoneb Neb) 1 ampule Q4HR NEB NEB 01/14/18 12:00 01/17/18 07:45 (Albuterol Neb) 2.5 mg Q6HR NEB PRN NEB 01/14/18 12:45 (Lasix Inj) 20 mg BID@ IV PUSH 01/14/18 18:00 01/16/18 18:13 (Mucinex Er) 600 mg BID PO 01/15/18 21:00 01/16/18 21:36 (NovoLOG SUPPLEMENTAL SCALE) 1 ACHS SLIDING SCALE SQ 01/16/18 12:00 01/16/18 21:42 (Lovenox Inj) 40 mg Q24H SQ 01/16/18 14:00 4/2/18 13:22 Sodium Chloride 1,000 ml @ 70 mls/hr [id number] IV 01/17/18 06:15 01/17/18 06:15 A/P Assessment and Plan //Cecal volvulus -s/p exploratory laparotomy and right colectomy performed by Dr. Zarate -pain management per surgery -PT eval/tx -started on liquid diet by General Surgery. -follow up on path results //Leukocytosis Improved, discontinued antibiotics by glaucoma specialist. //Anemia secondary to anemia of acute blood loss/postop -no active bleeding hemoglobin 10.8 //Hx of lung cancer s/p resection -resume home bronchodilator therapy - patients to bring in from home -scheduled Bronchodilator, Mucolytic and incentive spirometry. -supplemental oxygen to maintain O2 sats >92% //Electrolyte derangement, replaced, today magnesium 1.8 giving 1 gram of magnesium sulfate Potassium 3.6 giving 40 meq by mouth and Phosphorus 2 giving 15 mmol of Potassium Phosphate. //Hyperglycemia -hemoglobin A1C 5.5 //DVT prophylaxis -Bilateral scd/noman hose Encourage ambulation. Lovenox. Discharge Planning Once cleared by General Surgery. William Ewing MD Jan 17, 2018 08:45
[2018-01-17] MEDS: LISINOPRIL 20 MG TAB PO SCH ×2 (08:46→21:06)
[2018-01-17] MEDS: MULTIVITAMINS/MINERALS THERAPEUTIC TAB PO SCH (08:46)
[2018-01-17] MEDS: CETIRIZINE HCL 10 MG TAB PO SCH (08:46)
[2018-01-17] MEDS: ALVIMOPAN 12 MG CAPSULE PO SCH ×2 (08:46→20:58)
[2018-01-17] MEDS: amLODIPine BESYLATE 5 MG TAB PO SCH (08:46)
[2018-01-17] MEDS: guaiFENesin E.R. 600 MG TAB PO SCH ×2 (08:46→20:58)
[2018-01-17] MEDS: SODIUM CHLORIDE 0.9% FLUSH 10 ML FLUSH IV FLUSH SCH ×2 (08:47→21:02)
[2018-01-17] MEDS: NICOTINE 14 MG/24 HR PATCH T-DERMAL SCH (08:51)
[2018-01-17] MEDS: REMOVE OLD PATCH T-DERMAL SCH (08:51)
[2018-01-17] MEDS ORDERED: POTASSIUM CHLORIDE 20 MEQ CONTROLLED RELEASE TAB PO ONE (10:00)
[2018-01-17] MEDS ORDERED: MAGNESIUM OXIDE 400 MG TAB PO SCH (11:00)
[2018-01-17] MEDS: MORPHINE SULFATE 30 MG/30 ML PCA IV SCH (12:46)
[2018-01-17] MEDS: ENOXAPARIN SODIUM 40 MG/0.4 ML SYRINGE SQ SCH (13:55)
[2018-01-17] MEDS ORDERED: ALUMINUM/MAGNESIUM/SIMETH 30 ML CUP PO ONE (20:15)
[2018-01-17] MEDS: ATORVASTATIN 80 MG TAB PO SCH (20:58)
[2018-01-17] MEDS: FAMOTIDINE 20 MG TAB PO SCH (20:58)
[2018-01-17] MEDS: oxyCODONE/ACETAMINOPHEN 10 MG/325 MG TAB PO PRN (21:00)
--- NOTE | 2018-01-17 21:19 | HHI.PR ---
Subjective Remarks C/R Surg POD #5 afebrile, VSS UO good no SOB +liquid stools better PO Objective - Vital Signs Date Time Temp Pulse Resp B/P (MAP) Pulse Ox O2 Delivery O2 Flow Rate FiO2 01/17/18 16:00 97.9 120 16 134/66 (88) 92 01/17/18 15:58 Nasal Cannula 3.00 Result Diagram: 01/16/18 0627 01/17/18 0441 Objective Remarks PE alert Abd - soft, less tympany, wound dry A/P Assessment and Plan Imp: OOB decr IVF c. diff sent, neg Beny Zarate MD Jan 17, 2018 21:19
[2018-01-17 22:16] LABS: HEMOGLOBIN A1C 5.5 % (4.3-6.0)
[2018-01-18] VITALS (7 sets, daily range): BP systolic 95–111; BP diastolic 53–56; PULSE 95–102; RESP 18–19; TEMP 96.9–98.1; O2SAT 95–99
[2018-01-18] MEDS: RESP: ALBUTEROL 2.5 MG/IPRATROPIUM 0.5 MG NEB (SCH) NEB ×3 (00:34→07:43)
[2018-01-18] MEDS: oxyCODONE/ACETAMINOPHEN 5 MG/325 MG TAB PO PRN (02:23)
[2018-01-18] MEDS: INSULIN ASPART SUPPLEMENTAL SCALE SQ SCH ×2 (08:00→12:00)
[2018-01-18] MEDS: FUROSEMIDE 20 MG/2 ML VIAL IV PUSH SCH (08:02)
[2018-01-18] MEDS: guaiFENesin E.R. 600 MG TAB PO SCH (08:02)
[2018-01-18] MEDS: SODIUM CHLORIDE 0.9% FLUSH 10 ML FLUSH IV FLUSH SCH (08:02)
[2018-01-18] MEDS: FAMOTIDINE 20 MG TAB PO SCH (08:03)
[2018-01-18] MEDS: ALVIMOPAN 12 MG CAPSULE PO SCH (08:03)
[2018-01-18] MEDS: CETIRIZINE HCL 10 MG TAB PO SCH (08:03)
[2018-01-18] MEDS: MULTIVITAMINS/MINERALS THERAPEUTIC TAB PO SCH (08:03)
[2018-01-18] MEDS: LISINOPRIL 20 MG TAB PO SCH (08:06)
[2018-01-18] MEDS: amLODIPine BESYLATE 5 MG TAB PO SCH (08:06)
[2018-01-18] MEDS: REMOVE OLD PATCH T-DERMAL SCH (08:07)
[2018-01-18] MEDS: NICOTINE 14 MG/24 HR PATCH T-DERMAL SCH (08:07)
[2018-01-18] MEDS: oxyCODONE/ACETAMINOPHEN 10 MG/325 MG TAB PO PRN ×2 (08:12→14:19)
--- NOTE | 2018-01-18 10:19 | HHI.FF ---
Face to Face Verification Diagnosis: (1) Colonic obstruction Physical Therapy Order: Evaluate and Treat, Improve ambulation, Strength and gait training Home Health Nursing Order: Medical education Signs/symptoms of disease process Oxygen administration education Medication education-adverse effect Nursing assessment with vital signs I have seen patient Edna Fink on 01/18/18. My clinical findings support the need for the requested home health care services because: Ltd mobility - disease progression I certify that my clinical findings support that this patient is homebound because: Unsafe to leave home unassisted William Ewing MD Jan 18, 2018 10:19
[2018-01-18] MEDS ORDERED: OXYGENDME NAS.CANULA (10:23)
[2018-01-18] MEDS ORDERED: COMMODE 3-IN-11 MIS (10:23)
[2018-01-18] MEDS: SODIUM CHLOR 0.45% 1000 ML INJ 1,000 ML IV SCH (10:51)
[2018-01-18] MEDS ORDERED: OXYC1TAB63 PO (11:45)
[2018-01-18] MEDS ORDERED: guaiFENesin ER PO (11:45)
[2018-01-18] MEDS ORDERED: FAMO20TA2 PO (11:45)
[2018-01-18] MEDS ORDERED: NICO14DI23 T-DERMAL (11:45)
[2018-01-18] MEDS: ENOXAPARIN SODIUM 40 MG/0.4 ML SYRINGE SQ SCH (14:13)
[2018-01-18] MEDS: ONDANSETRON HCL 4 MG/2 ML VIAL IVP PRN (14:48)
--- NOTE | 2018-01-18 17:27 | HHI.PR ---
Subjective Remarks This is a pleasant 67 y/o Female, history of Lung cancer, brought in to ER with Abdominal pain nausea and vomit, followed by GI specialist, as we know she has COPD, Hypertension, Right Upper lobe squamous cell carcinoma and left upper lung adenocarcinoma, S/P left upper lobectomy and mediastinal lymph node dissection. Admits to occasion ETOH. Smokes 10 cigarettes a day. Denies illicit drug use. Also admits to taking a lot of Ibuprofen recently for back pain. 01/13/18 s/p EGD and colonoscopy 01/12 found esophagitis, gastritis, colon polyps , colon torsion vs volvulus. CRS consulted and she is s/p ex lap and right colectomy. Dr. 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 Status post laparotomy and Right colectomy by Dr. Zarate. 01/14: Seen in her bedroom in the presence of her Mr. Lundberg, she is been coughing will continue Bronchodilator Mucolytic and incentive spirometry. 01/15: Stable in her bedroom again with her Mr. Lundberg, continue replacing electrolytes 01/16: Her present no nausea, vomit or diarrhea, her present. 01/17: Loose stools as expected secondary to resolution of Volvulus. stable in her bedroom, C Diff was negative, 01/18: Stable in her bedroom, no nausea, vomit or diarrhea, okay to discharge as per General Surgery, her in the room Mr. Lundberg. Objective Vital Signs Date Time Temp Pulse Resp B/P (MAP) Pulse Ox O2 Delivery O2 Flow Rate FiO2 01/18/18 15:31 96 Nasal Cannula 1.00 01/18/18 15:19 18 01/18/18 12:00 98.1 102 18 111/56 (74) 95 01/18/18 08:40 97 Nasal Cannula 2.00 01/18/18 08:00 97.7 95 18 95/53 (67) 97 01/18/18 07:43 95 Nasal Cannula 1.00 01/18/18 00:36 97 Nasal Cannula 1.00 01/18/18 00:00 96.9 96 19 110/56 (74) 99 01/17/18 20:00 97.9 110 19 109/61 (77) 95 I/O 4/3/01/17/18 01/17/18 01/18/18 01/18/18 01/18/18 07:00 15:00 23:00 07:00 15:00 23:00 Intake Total 1900 ml 240 ml Output Total 251 ml 200 ml 600 ml Balance -251 ml -200 ml 1300 ml 240 ml Intake Oral 900 ml 240 ml IV Total 1000 ml Output Urine Total 250 ml 200 ml 600 ml Stool Total 1 ml # Voids 2 # Bowel Movements 1 5 Result Diagram: 01/16/18 0627 01/17/18 0441 Imaging Last Impressions Chest X-Ray 01/16/18 0000 Signed Impressions: Service Date/Time: Tuesday, January 16, 2018 19:55 - CONCLUSION: 1. Mild basilar airspace disease and small effusions. Heart size within normal limits. Hakan Arias MD Abdomen/Pelvis CT 01/11/18 0000 Signed Impressions: Service Date/Time: Thursday, January 11, 2018 01:04 - CONCLUSION: 1. Small amount of pelvic free fluid. 2. Normal appendix. 3. Gaseous distention of the ascending colon without obstruction. Aman Cruz MD Abdomen X-Ray 01/10/18 2345 Signed Impressions: Service Date/Time: Thursday, January 11, 2018 00:02 - CONCLUSION: Mild gaseous distention of bowel loops in right abdomen without obstruction. Round benign-appearing calcification to the left of L4 vertebral body. Aman Cruz MD Procedures EGD s/p exp laparotomy and right colectomy by Dr. Zarate Other Results Laboratory Tests Test 01/11/18 00:20 01/11/18 00:24 01/13/18 07:27 01/14/18 07:25 Prothrombin Time 10.1 SEC Prothromb Time International Ratio 1.0 RATIO Activated Partial Thromboplast Time 22.6 SEC Lactic Acid Level 0.5 mmol/L Lipase 146 U/L Urine Color YELLOW Urine Turbidity CLEAR Urine pH 6.5 Urine Specific Addison 1.010 Urine Protein TRACE mg/dL Urine Glucose (UA) NEG mg/dL Urine Ketones 10 mg/dL Urine Occult Blood SMALL Urine Nitrite NEG Urine Bilirubin NEG Urine Urobilinogen LESS THAN 2.0 MG/DL Urine Leukocyte Esterase TRACE Urine RBC 26 /hpf Urine WBC 3 /hpf Urine Squamous Epithelial Cells 3 /hpf Urine Amorphous Sediment RARE Urine Mucus FEW /lpf Microscopic Urinalysis Comment CULT NOT INDICATED Differential Total Cells Counted 100 Neutrophils % (Manual) 87 % Band Neutrophils % 10 % Lymphocytes % 2 % Monocytes % 1 % Neutrophils # (Manual) 15.5 TH/MM3 Platelet Estimate NORMAL Platelet Morphology Comment NORMAL Ovalocytes 1+ Acanthocytes OCC Blood Urea Nitrogen 16 MG/DL 7 MG/DL Creatinine 0.67 MG/DL 0.49 MG/DL Random Glucose 226 MG/DL 127 MG/DL Total Protein 4.7 GM/DL 5.2 GM/DL Albumin 2.1 GM/DL Calcium Level 6.9 MG/DL 7.1 MG/DL Phosphorus Level 1.7 MG/DL Magnesium Level 2.9 MG/DL Alkaline Phosphatase 43 U/L Aspartate Amino Transf (AST/SGOT) 25 U/L Alanine Aminotransferase (ALT/SGPT) 18 U/L Total Bilirubin 0.2 MG/DL Sodium Level 145 MEQ/L 148 MEQ/L Potassium Level 3.4 MEQ/L 3.1 MEQ/L Chloride Level 110 MEQ/L 112 MEQ/L Carbon Dioxide Level 31.1 MEQ/L 30.6 MEQ/L Protein Corrected Calcium 8.1 MG/DL Test 01/16/18 06:27 01/16/18 18:06 01/17/18 04:41 White Blood Count 10.7 TH/MM3 Red Blood Count 3.59 MIL/MM3 Hemoglobin 10.8 GM/DL Hematocrit 31.7 % Mean Corpuscular Volume 88.3 FL Mean Corpuscular Hemoglobin 30.0 PG Mean Corpuscular Hemoglobin Concent 34.0 % Red Cell Distribution Width 14.4 % Platelet Count 262 TH/MM3 Mean Platelet Volume 7.7 FL Neutrophils (%) (Auto) 81.5 % Lymphocytes (%) (Auto) 12.8 % Monocytes (%) (Auto) 4.9 % Eosinophils (%) (Auto) 0.4 % Basophils (%) (Auto) 0.4 % Neutrophils # (Auto) 8.7 TH/MM3 Lymphocytes # (Auto) 1.4 TH/MM3 Monocytes # (Auto) 0.5 TH/MM3 Eosinophils # (Auto) 0.0 TH/MM3 Basophils # (Auto) 0.0 TH/MM3 CBC Comment DIFF FINAL Differential Comment Blood Urea Nitrogen 7 MG/DL Creatinine 0.54 MG/DL Random Glucose 113 MG/DL Calcium Level 7.5 MG/DL Phosphorus Level 2.0 MG/DL 2.7 MG/DL Magnesium Level 1.8 MG/DL Sodium Level 142 MEQ/L Potassium Level 3.6 MEQ/L 3.8 MEQ/L Chloride Level 108 MEQ/L Carbon Dioxide Level 26.3 MEQ/L Anion Gap 8 MEQ/L Estimat Glomerular Filtration Rate 113 ML/MIN Hemoglobin A1c 5.5 % Stool C. difficile Toxin (PCR) NEGATIVE Stl C. difficile Toxin Epiderm 027 PRESUMPTIVE NEGATIVE Objective Remarks GENERAL: No acute distress. SKIN: Warm and dry. HEAD: Atraumatic. Normocephalic. EYES: Pupils equal and round. No scleral icterus. No injection or drainage. ENT: No nasal bleeding or discharge. Mucous membranes pink and moist. NG tube right nare. NECK: Trachea midline. CARDIOVASCULAR: Regular rate and rhythm. RESPIRATORY: No accessory muscle use. Clear to auscultation. Breath sounds equal bilaterally. GASTROINTESTINAL: Abdomen postop binder in place, hypoactive BS. MUSCULOSKELETAL: Extremities without clubbing, cyanosis, or edema. No obvious deformities. NEUROLOGICAL: Awake and alert. No obvious cranial nerve deficits. Motor grossly within normal limits. Normal speech. PSYCHIATRIC: Appropriate mood and affect; insight and judgment normal. A/P Assessment and Plan //Cecal volvulus -s/p exploratory laparotomy and right colectomy performed by Dr. Zarate -pain management per surgery -PT eval/tx -tolerating diet, as per legal service specialist okay to discharge Home with [facility]. -follow up on path results //Leukocytosis Improved, discontinued antibiotics by legal service specialist. //Anemia secondary to anemia of acute blood loss/postop -no active bleeding hemoglobin 10.8 //Hx of lung cancer s/p resection -resume home bronchodilator therapy - patients to bring in from home -scheduled Bronchodilator, Mucolytic and incentive spirometry. -supplemental oxygen to maintain O2 sats >92% needs oxygen to keep Oxygen saturation over 92% at home. //Electrolyte derangement, replaced. //Hyperglycemia -hemoglobin A1C 5.5 //DVT prophylaxis -Bilateral scd/noman hose Encourage ambulation. Lovenox. Discharge Planning Discharge Home with [facility]. William Ewing MD Jan 18, 2018 17:27
--- NOTE | 2018-01-18 17:31 | HHI.DS ---
Discharge Summary Admission Date Jan 11, 2018 at 02:33 Discharge Date: Jan 18, 2018 Admitting Diagnosis Colonic Obstruction (1) Colon obstruction ICD Code: K56.609 - Unspecified intestinal obstruction, unspecified as to partial versus complete obstruction Diagnosis: Principal (2) Cecal volvulus ICD Code: K56.2 - Volvulus Diagnosis: Principal Procedures EGD s/p exp laparotomy and right colectomy by Dr. Zarate Brief History - From Admission Patient is a 67-year-old female. History of lung cancer. Presents with having right sided abdominal pain with some nausea and vomiting. Has been unable to tolerate oral intake yesterday. Patient denies any fevers denies any chills denies any sweating denies any dysuria urgency or frequency. Denies any recent antibiotics. Denies any contact with anyone sick. Denies any strange food intake. Denies any urinary symptoms. States she has not had a bowel movement since yesterday CBC/BMP: 01/16/18 0627 01/17/18 0441 Significant Findings Laboratory Tests Test 01/16/18 06:27 01/16/18 18:06 01/17/18 04:41 Red Blood Count 3.59 MIL/MM3 (4.00-5.30) Hemoglobin 10.8 GM/DL (11.6-15.3) Hematocrit 31.7 % (35.0-46.0) Neutrophils (%) (Auto) 81.5 % (16.0-70.0) Neutrophils # (Auto) 8.7 TH/MM3 (1.8-7.7) Random Glucose 113 MG/DL (74-106) Calcium Level 7.5 MG/DL (8.5-10.1) Phosphorus Level 2.0 MG/DL (2.5-4.9) Chloride Level 108 MEQ/L (98-107) Imaging Last Impressions Chest X-Ray 01/16/18 0000 Signed Impressions: Service Date/Time: Tuesday, January 16, 2018 19:55 - CONCLUSION: 1. Mild basilar airspace disease and small effusions. Heart size within normal limits. Hakan Arias MD Abdomen/Pelvis CT 01/11/18 0000 Signed Impressions: Service Date/Time: Thursday, January 11, 2018 01:04 - CONCLUSION: 1. Small amount of pelvic free fluid. 2. Normal appendix. 3. Gaseous distention of the ascending colon without obstruction. Aman Cruz MD Abdomen X-Ray 01/10/18 2345 Signed Impressions: Service Date/Time: Thursday, January 11, 2018 00:02 - CONCLUSION: Mild gaseous distention of bowel loops in right abdomen without obstruction. Round benign-appearing calcification to the left of L4 vertebral body. Aman Cruz MD PE at Discharge GENERAL: No acute distress. SKIN: Warm and dry. HEAD: Atraumatic. Normocephalic. EYES: Pupils equal and round. No scleral icterus. No injection or drainage. ENT: No nasal bleeding or discharge. Mucous membranes pink and moist. NG tube right nare. NECK: Trachea midline. CARDIOVASCULAR: Regular rate and rhythm. RESPIRATORY: No accessory muscle use. Clear to auscultation. Breath sounds equal bilaterally. GASTROINTESTINAL: Abdomen postop binder in place, hypoactive BS. MUSCULOSKELETAL: Extremities without clubbing, cyanosis, or edema. No obvious deformities. NEUROLOGICAL: Awake and alert. No obvious cranial nerve deficits. Motor grossly within normal limits. Normal speech. PSYCHIATRIC: Appropriate mood and affect; insight and judgment normal. Hospital Course This is a pleasant 67 y/o Female, history of Lung cancer, brought in to ER with Abdominal pain nausea and vomit, followed by GI specialist, as we know she has COPD, Hypertension, Right Upper lobe squamous cell carcinoma and left upper lung adenocarcinoma, S/P left upper lobectomy and mediastinal lymph node dissection. Admits to occasion ETOH. Smokes 10 cigarettes a day. Denies illicit drug use. Also admits to taking a lot of Ibuprofen recently for back pain. 01/13/18 s/p EGD and colonoscopy 01/12 found esophagitis, gastritis, colon polyps , colon torsion vs volvulus. CRS consulted and she is s/p ex lap and right colectomy. Dr. 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 Status post laparotomy and Right colectomy by Dr. Zarate. 01/14: Seen in her bedroom in the presence of her Mr. Lundberg, she is been coughing will continue Bronchodilator Mucolytic and incentive spirometry. 01/15: Stable in her bedroom again with her Mr. Lundberg, continue replacing electrolytes 01/16: Her present no nausea, vomit or diarrhea, her present. 01/17: Loose stools as expected secondary to resolution of Volvulus. stable in her bedroom, C Diff was negative, 01/18: Stable in her bedroom, no nausea, vomit or diarrhea, okay to discharge as per General Surgery, her in the room Mr. Lundberg. Assessment and Plan //Cecal volvulus -s/p exploratory laparotomy and right colectomy performed by Dr. Zarate -pain management per surgery -PT eval/tx -tolerating diet, as per environmental protection specialist okay to discharge Home with [facility]. -follow up on path results //Leukocytosis Improved, discontinued antibiotics by environmental protection specialist. //Anemia secondary to anemia of acute blood loss/postop -no active bleeding hemoglobin 10.8 //Hx of lung cancer s/p resection -resume home bronchodilator therapy - patients to bring in from home -scheduled Bronchodilator, Mucolytic and incentive spirometry. -supplemental oxygen to maintain O2 sats >92% needs oxygen to keep Oxygen saturation over 92% at home. //Electrolyte derangement, replaced. //Hyperglycemia -hemoglobin A1C 5.5 //DVT prophylaxis -Bilateral scd/noman hose Encourage ambulation. Lovenox. Discharge Planning Discharge Home with [facility]. Pt Condition on Discharge: Good Discharge Disposition: Disch w/ Home Health Serv Discharge Time: > 30 minutes Discharge Instructions DIET: Follow Instructions for: Heart Healthy Diet Activities you can perform: Regular-No Restrictions William Ewing MD Jan 18, 2018 17:30
--- NOTE | 2018-01-19 08:28 | MP ---
cc: Beny Zarate MD DATE OF OPERATION: 01/12/2018 PREOPERATIVE DIAGNOSIS: Abdominal pain, possible cecal volvulus. PROCEDURE PERFORMED: Exploratory laparotomy, with resection of terminal ileum and right colon. 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 SURGEON: Beny Zarate MD AIR ANALYSIS ENGINEERING TECHNICIAN: Dr. Leonel Mendoza DESCRIPTION OF PROCEDURE: The patient was placed in the supine position. After adequate general anesthesia, her legs were placed in universal stirrups and supported appropriately. The abdomen was then prepped with Betadine solution and draped in the usual sterile fashion. With Dr. Mendoza's assistance, the abdomen was opened through a midline incision. Upon entering the abdomen, there was some serosanguineous ascites. Exploration revealed the cecum and right colon to be extremely distended and twisted with a volvulus stuck up above the liver. This was untwisted ,noting loops of terminal ileum trapped under the mesentery and quite ischemic in nature for about the last 2, almost 3 feet. After untwisting the volvulus, the terminal ileum and small bowel did not appear to show any signs of viability. The proximal bowel was pretty unremarkable. The stomach and duodenum were normal. The small bowel was gently dilated and full of air and liquid fluid throughout the proximal extent. The colon distal to the volvulus appeared to be healthy. First, the right colon was mobilized medially, noting very little retroperitoneal attachments. The right ureter was identified and carefully preserved. Dissection then proceeded up, taking down attachments to the hepatic flexure into the lesser sac and mobilizing the gastrocolic omentum off the transverse colon. The proximal extent of resection was chosen about 2-3 feet proximal to the ileocecal valve, with viability of the bowel appeared pretty obvious. An avascular plane was created and the bowel divided using the LANE stapling device. The mesentery was then progressively divided, taking the ileocolic pedicle between Kellys and obtaining hemostasis with Vicryl ties. The bowel was then divided in the proximal transverse colon, again using the GI stapling device. The right colon and terminal ileum were removed. Bowel continuity was then restored by firing of the GI stapler across antimesenteric ends of the bowel, decompressing both the colon and the small bowel prior to closing the enterotomy with a TA 60 stapling. The mesenteric defect closed with a running Vicryl suture and a 3-0 Vicryl crotch suture was placed as well. The abdomen was then irrigated copiously with normal saline. Adequate hemostasis achieved. The midline incision was closed anatomically using a running #1 PDS suture to reapproximate the midline fascia. The subcutaneous tissue was irrigated copiously and the skin closed with surgical linda. Wound area washed with normal saline and dried, sterile dressing of Telfa and gauze applied. The patient tolerated the procedure quite well and was brought to the recovery room in stable condition. Sponge and needle counts were correct at the end of the procedure. Beny Zarate MD [facility] , 10:47 PM , 11:21 PM
== END 2018-01-18 17:04 | disposition home or self-care (01) ==
LOC: NEPE 23:33 → NEDA 01-11 02:28 → UNDOADMIN 01-11 02:28 → INTOOBSV 01-11 02:33 → NEDA 01-11 02:33 → NEDH 01-11 06:40 → UNDODISOB 01-11 15:11 → NEPGCP 01-11 19:00 → INTOOBSV 01-12 23:39 → OBSVTOIN 01-12 23:39 → HPAC 01-13 → N03B 01-13 00:54 → HPAC 01-13 00:57 → N07A 01-13 12:15
PROVIDERS: ADMIT Internal Medicine; ATTEND Internal Medicine
DX: K56.2 Volvulus (principal); K55.9 Vascular disorder of intestine, unspecified; K62.1 Rectal polyp; D12.3 Benign neoplasm of transverse colon; R10.31 Right lower quadrant pain; E78.00 Pure hypercholesterolemia, unspecified; R14.0 Abdominal distension (gaseous); K59.00 Constipation, unspecified; R11.2 Nausea with vomiting, unspecified; D72.829 Elevated white blood cell count, unspecified; I10 Essential (primary) hypertension; J44.9 Chronic obstructive pulmonary disease, unspecified; D62 Acute posthemorrhagic anemia; K29.70 Gastritis, unspecified, without bleeding; R73.9 Hyperglycemia, unspecified; I49.3 Ventricular premature depolarization; F41.9 Anxiety disorder, unspecified; M81.0 Age-related osteoporosis without current pathological fracture; F17.210 Nicotine dependence, cigarettes, uncomplicated; Z79.899 Other long term (current) drug therapy; Z85.118 Personal history of other malignant neoplasm of bronchus and lung; Z90.2 Acquired absence of lung [part of]; Z95.5 Presence of coronary angioplasty implant and graft; R79.89 Other specified abnormal findings of blood chemistry
CPT/HCPCS: 00813; 43239; 44160; 45385; 71045; 74018; 74177; 80048; 80053; 81001; 82948; 83036; 83605; 83690; 83735; 84100; 84132; 84155; 85007; 85025; 85027; 85610; 85730; 86850; 86900; 86901; 87015; 87070; 87116; 87205; 87206; 87493; 88305; 88307; 93005; 94150; 94618; 94640; 94664; 94667; 94668; 96361; 96365; 96366; 96367; 96368; 96372; 96374; 96375; 96376; 97163; 99285; G0378; G8987; G8988; J0330; J0610; J0690; J1100; J1170; J1650; J1815; J1940; J2250; J2270; J2370; J2405; J2765; J3010; J3475; J3480; J7030; J7040; J7050; J7120; J7613; Q9967; 88309; 88312

== ENCOUNTER 2018-01-26 14:10 | Emergency (ER) | payer MEDICARE ==
[~2018-01-26] VITALS: Ht 160 cm; Wt 50.0 kg
[~2018-01-26 14:10] MED LIST changes: -CALC500C2 CHEW; +COMMODE 3-IN-11 MIS; -DOCU1CAP26 PO; +FAMO20TA2 PO; -GLUC500C5 PO; -HYDR-3516 PO; -MULTTAB25 PO; +NICO14DI23 T-DERMAL; +OXYC1TAB63 PO; +OXYGENDME NAS.CANULA; +guaiFENesin ER PO
[2018-01-26 14:47] VITALS: BP 111/57; PULSE 101; RESP 16; TEMP 98.1; O2SAT 97
[2018-01-26 17:24] LABS: AUTOMATED NEUTROPHIL # 8.6 TH/MM3 (1.8-7.7); BASOPHIL # 0.1 TH/MM3 (0-0.2); BASOPHIL % 0.8 % (0.0-2.0); EOSINOPHIL # 0.2 TH/MM3 (0-0.4); HEMATOCRIT 31.2 % (35.0-46.0); HEMOGLOBIN 10.5 GM/DL (11.6-15.3); LYMPH % 15.8 % (9.0-44.0); LYMPHOCYTE # 1.8 TH/MM3 (1.0-4.8); MEAN CELL VOLUME 86.5 FL (80.0-100.0); MEAN CORPUSCULAR HEMOGLOBIN 29.1 PG (27.0-34.0); MEAN CORPUSCULAR HGB CONC 33.6 % (32.0-36.0); MEAN PLATELET VOLUME 6.4 FL (7.0-11.0); MONO % 5.1 % (0.0-8.0); MONOCYTE # 0.6 TH/MM3 (0-0.9); NEUT % 76.3 % (16.0-70.0); PLATELET COUNT 737 TH/MM3 (150-450); RED BLOOD COUNT 3.61 MIL/MM3 (4.00-5.30); RED CELL DISTRIBUTION WIDTH 14.3 % (11.6-17.2); WHITE BLOOD COUNT 11.2 TH/MM3 (4.0-11.0)
[2018-01-26 17:33] LABS: AMORPHOUS SEDIMENT, URINE RARE; BACTERIA, URINE FEW /hpf; BILIRUBIN, URINE NEG (NEG); BLOOD, URINE MOD (NEG); GLUCOSE,URINE NEG (NEG); KETONE, URINE TRACE mg/dL (NEG); MUCUS URINE FEW /lpf (OCC); NITRITE,URINE NEG (NEG); SQUAMOUS EPITHELIAL CELL URINE 13 /hpf (0-5); URINE COLOR YELLOW (YELLW/STRAW); URINE LEUKOCYTE ESTERASE MOD (NEG)
[2018-01-26 18:03] LABS: ALT (GPT) 86 U/L (10-53); AST (GOT) 108 U/L (15-37); BICARBONATE 32.8 MEQ/L (21.0-32.0); BLOOD UREA NITROGEN 7 MG/DL (7-18); CALCIUM 8.3 MG/DL (8.5-10.1); CHLORIDE 103 MEQ/L (98-107); CREATININE 0.71 MG/DL (0.50-1.00); GLOMERULAR FILTRATION RATE 82 ML/MIN (>89); GLUCOSE,RANDOM 139 MG/DL (74-106); SODIUM (NA) 142 MEQ/L (136-145)
[2018-01-26 18:06] LABS: ALKALINE PHOSPHATASE 140 U/L (45-117); TOTAL BILIRUBIN ADULT 0.2 MG/DL (0.2-1.0); TOTAL PROTEIN 6.4 GM/DL (6.4-8.2)
== END 2018-01-26 19:31 | disposition left against medical advice (07) ==
LOC: NED 14:10
DX: R19.7 Diarrhea, unspecified (principal)
CPT/HCPCS: 80053; 81001; 83690; 85025; 87086; 99281